=== PATIENT | male | born 1950 | race Caucasian/White ===

== ENCOUNTER 2018-09-04 08:26 | Outpatient (CLI) | payer MEDICARE, OTHER ==
[2018-09-04] MEDS ORDERED: GADOBUTROL 7.5 MMOL/7.5 ML VIAL ONE (09:01)
[2018-09-04] MEDS ORDERED: GADOBUTROL 7.5 MMOL/7.5 ML VIAL IVP ONE (09:36)
--- NOTE | 2018-09-04 11:51 | MRI Report ---
Reason: CHRONIC BILATERAL LOW BACK PAIN W/BILATERAL SCIATI Procedure Date: 09/04/2018 Accession Number: [id number] / [id number] Procedure: MRI - Lumbar Spine W/WO CPT Code: FULL RESULT: EXAM: MRI LUMBAR SPINE WITHOUT AND WITH CONTRAST EXAM DATE: 09/04/2018 09:47 AM. CLINICAL HISTORY: 59-year-old with history of prior lumbar spine surgeries presenting with low back pain and radiculopathy. COMPARISONS: MR lumbar spine 03/21/2016. TECHNIQUE: Multiplanar, multisequence T1-weighted and fluid-sensitive sequences of the lumbar spine from T12 to S1 before and after administration of intravenous contrast. Other: None. IV contrast: 7.5 cc Gadavist. FINDINGS: Postsurgical: There appear to be postsurgical changes of left L4-L5 hemilaminectomy and right L5-S1 hemilaminectomy. Neurologic Structures: The conus terminates at T12-L1. The conus medullaris and cauda equina are unremarkable. Alignment: There is 15 degrees of levoconvex scoliotic curvature centered about L4. There is straightening of the normal lumbar lordosis with 4 mm of grade 1 retrolisthesis of L5 on S1. There is 2-3 mm of grade 1 retrolisthesis of L1 on L2 and L4 and L5. Bone Marrow: Five [id number] lumbar vertebral bodies are assumed. There is endplate edema seen from L1-L2 L5-S1 that demonstrates enhancement. Finding may be degenerative in nature. Modic type II changes are seen at L1-L2, L2-L3, L4-L5 and L5-S1. No acute fracture. No definite abnormal marrow replacing lesion. No definite mass or masslike enhancement seen. Disk Levels/Facets: T12-L1: Mild endplate degenerative change, mild loss of disk height, and slight disk desiccation. Minimal bilateral arthritic facet disease. No definite spinal canal stenosis. No definite neural foraminal narrowing. L1-L2: Moderate endplate degenerative change, Schmorl's node formation, moderate loss of disk height, and disk desiccation with edema seen within the disk space that may be degenerative. Small posterior disk bulge, bilateral arthritic facet disease, and prominent epidural fat. Fluid is seen within the facets bilaterally. Mild spinal canal stenosis and effacement of the lateral recesses with contact of the traversing bilateral L2 nerve roots, greater on the left. Mild to moderate right and severe left neuroforaminal narrowing. L2-L3: Moderate endplate degenerative change, Schmorl's node formation, moderate loss of disk height, disk desiccation. Small posterior disk bulge, bilateral arthritic facet disease, and prominent epidural fat. Fluid is seen within the facets bilaterally. Mild to moderate spinal canal stenosis in the face and the lateral recesses with contact of the traversing bilateral L3 nerve roots, greater on the right. Mild to moderate right and moderate left neuroforaminal narrowing. L3-L4: Moderate endplate degenerative change, Schmorl's node formation, moderate loss of disk height, disk desiccation. Small posterior disk bulge, bilateral arthritic facet disease, ligament of flavum thickening, and prominent epidural fat. Severe spinal canal stenosis and effacement of the lateral recesses. Moderate to severe bilateral neural foraminal narrowing. L4-L5: Moderate endplate degenerative change, Schmorl's node formation, moderate loss of disk, and disk desiccation. Small posterior disk bulge, bilateral arthritic facet disease, and prominent epidural fat. Moderate spinal canal stenosis and effacement of the lateral recesses with contact of the traversing bilateral L5 nerve roots, greater on the right. Moderate right and mild to moderate left neuroforaminal narrowing. L5-S1: Moderate endplate degenerative change, Schmorl's node formation, moderate loss of disk height, disk desiccation. Small posterior disk bulge and bilateral arthritic facet disease. Effacement of the lateral recesses with contact and mass-effect on the traversing right S1 and contact of the traversing left S1 nerve roots. Moderate to severe bilateral neuroforaminal narrowing. Spinal Canal: No enhancing masses within the spinal canal. No epidural abscess. Musculature: Surgical changes are seen within the multifidus muscles of the lower lumbar spine. Mild fatty atrophy of the multifidus muscles. Edema seen within the subcutaneous tissues of the low back. Other: The visualized retroperitoneum is unremarkable. IMPRESSION: 1. Postsurgical changes of right L5-S1 hemilaminectomy. 2. There is 15 degrees of levoconvex scoliotic curvature centered about L4. 3. There is straightening of the normal lumbar lordosis with 4 mm of grade 1 retrolisthesis of L5 on S1. There is 2-3 mm of grade 1 retrolisthesis of L1 on L2 and L4 and L5. 4. Multilevel degenerative changes. L1-L2: Mild spinal canal stenosis and effacement of the lateral recesses with contact of the traversing bilateral L2 nerve roots, greater on the left. Mild to moderate right and severe left neuroforaminal narrowing. Findings appear slightly progressed from 03/21/2016 L2-L3: Mild to moderate spinal canal stenosis in the face and the lateral recesses with contact of the traversing bilateral L3 nerve roots, greater on the right. Mild to moderate right and moderate left neuroforaminal narrowing. Findings appear slightly progressed from 03/21/2016. L3-L4: Severe spinal canal stenosis and effacement of the lateral recesses. Moderate to severe bilateral neural foraminal narrowing. Findings appear slightly progressed from 03/21/2016 L4-L5: Moderate spinal canal stenosis and effacement of the lateral recesses with contact of the traversing bilateral L5 nerve roots, greater on the right. Moderate right and mild to moderate left neuroforaminal narrowing. Findings appear slightly progressed from 03/21/2016 L5-S1: Effacement of the lateral recesses with contact and mass-effect on the traversing right S1 and contact of the traversing left S1 nerve roots. Findings appear improved from prior study. Moderate to severe bilateral neuroforaminal narrowing. Findings appear slightly progressed from 03/21/2016. Comment: The following findings are so common in adults without low back pain that while we report their presence, they must be interpreted with caution and in the context of the clinical situation. (Reference Rosaleevik et al, Spine 2001) Prevalence of findings in patients without low back pain: Disk degeneration (any evidence): 92% Disk desiccation/T2 signal loss: 83% Disk height loss: 56% Disk bulge: 64% Disk protrusion: 32% Annular tear/high intensity zone: 38% RADIA
== END 2018-09-04 08:27 | disposition home or self-care (01) ==
LOC: DI 08:26
PROVIDERS: ATTEND Physical Medicine & Rehabilitation
DX: M51.36 Other intervertebral disc degeneration, lumbar region (principal); M51.35 Other intervertebral disc degeneration, thoracolumbar region; M51.37 Other intervertebral disc degeneration, lumbosacral region; M47.9 Spondylosis, unspecified; M48.061 Spinal stenosis, lumbar region without neurogenic claudication; M48.07 Spinal stenosis, lumbosacral region; M41.86 Other forms of scoliosis, lumbar region; M43.16 Spondylolisthesis, lumbar region; M43.17 Spondylolisthesis, lumbosacral region
CPT/HCPCS: 72158; A9585

== ENCOUNTER 2018-12-19 16:25 | Outpatient (CLI) | payer MEDICARE ==
[2018-12-19 16:38] LABS: BASOPHILS # (AUTO) 0.1 10^3/uL (0.0-0.1); BASOPHILS % (AUTO) 0.7 %; EOSINOPHILS # (AUTO) 0.2 10^3/uL (0.0-0.7); EOSINOPHILS % (AUTO) 1.5 %; HGB - HEMOGLOBIN 14.3 g/dL (14.0-18.0); LYMPHOCYTES # (AUTO) 1.6 10^3/uL (1.5-3.5); LYMPHOCYTES % (AUTO) 15.2 %; MEAN CORPUSCULAR HEMOGLOBIN 33.4 pg (27.0-31.0); MEAN CORPUSCULAR VOLUME 101.1 fL (80.0-94.0); MEAN PLATELET VOLUME 8.5 fL (7.4-11.4); MONOCYTES # (AUTO) 0.8 10^3/uL (0.0-1.0); NEUTROPHILS # (AUTO) 7.9 10^3/uL (1.5-6.6); NEUTROPHILS % (AUTO) 74.6 %; PLT - PLATELET COUNT 263 10^3/uL (130-450); RED BLOOD COUNT 4.28 10^6/uL (4.70-6.10); RED CELL DISTRIBUTION WIDTH 12.3 % (12.0-15.0); WHITE BLOOD COUNT 10.6 x10^3/uL (4.8-10.8)
[2018-12-19 16:48] LABS: ALBUMIN 4.3 g/dL (3.2-5.5); ALBUMIN/GLOBULIN RATIO 1.4 (1.0-2.2); BILIRUBIN,TOTAL 0.7 mg/dL (0.2-1.0); CALCIUM 9.7 mg/dL (8.5-10.3); CREATININE 1.1 mg/dL (0.6-1.2); TOTAL PROTEIN 7.3 g/dL (6.7-8.2)
== END 2018-12-19 16:26 | disposition home or self-care (01) ==
LOC: LAB 16:25
PROVIDERS: ATTEND Internal Medicine Gastroenterology
DX: R13.10 Dysphagia, unspecified (principal); I10 Essential (primary) hypertension
CPT/HCPCS: 36415; 80053; 85025; 93005

== ENCOUNTER 2018-12-20 12:00 | Day surgery (SDC) | payer MEDICARE, OTHER ==
[2018-12-20] MEDS ORDERED: LACTATED RINGERS 1,000 ML IV ONE (12:59)
[2018-12-20] MEDS ORDERED: LIDO GARGLE 30 ML BOTTLE ONE (13:54)
[2018-12-20] MEDS ORDERED: MIDAZOLAM 2 MG/2 ML VIAL IVP ONE (14:04)
[2018-12-20] MEDS ORDERED: fentaNYL 250 MCG/5 ML VIAL IVP ONE (14:04)
[2018-12-20] MEDS ORDERED: LIDO GARGLE 30 ML BOTTLE TOP ONE (14:08)
[2018-12-20 15:36] VITALS: BP 144/83
== END 2018-12-20 12:01 | disposition home or self-care (01) ==
LOC: SDS 12:00
PROVIDERS: ATTEND Internal Medicine Gastroenterology
PROC: 0DB28ZX Excision of Middle Esophagus, Via Natural or Artificial Opening Endoscopic, Diagnostic (ICD-10-PCS; 2018-12-20)
PROC: 0DB48ZX Excision of Esophagogastric Junction, Via Natural or Artificial Opening Endoscopic, Diagnostic (ICD-10-PCS; principal; 2018-12-20 13:15)
DX: C15.4 Malignant neoplasm of middle third of esophagus (principal); K21.9 Gastro-esophageal reflux disease without esophagitis; E78.5 Hyperlipidemia, unspecified; I10 Essential (primary) hypertension; E03.9 Hypothyroidism, unspecified; M10.9 Gout, unspecified; F32.9 Major depressive disorder, single episode, unspecified; Z72.89 Other problems related to lifestyle
CPT/HCPCS: 43239; A9270; J3010; J7120

== ENCOUNTER 2018-12-21 08:07 | Outpatient (CLI) | payer MEDICARE ==
[2018-12-21] MEDS ORDERED: IOVERSOL 320 50 ML VIAL ONE (08:38)
[2018-12-21] MEDS ORDERED: IOVERSOL 320 100 ML VIAL IVP ONE ×2 (08:38→10:08)
[2018-12-21] MEDS ORDERED: IOVERSOL 320 50 ML VIAL PO ONE (10:08)
--- NOTE | 2018-12-21 12:01 | CT Report ---
Reason: STAGING ESOPHAGEAL CANCER Procedure Date: 12/21/2018 Accession Number: [id number] / [id number] Procedure: CT - Abdomen/Pelvis W/ CPT Code: FULL RESULT: EXAM: CT CHEST, ABDOMEN AND PELVIS EXAM DATE: 12/21/2018 09:48 AM. CLINICAL HISTORY: Staging esophageal cancer. COMPARISONS: None. TECHNIQUE: Routine helical CT imaging was performed through the chest, abdomen, and pelvis. IV contrast: opti 320 100 ml. Enteric contrast: Yes. Reconstructions: Coronal and sagittal. In accordance with CT protocol optimization, one or more of the following dose reduction techniques were utilized for this exam: automated exposure control, adjustment of mA and/or KV based on patient size, or use of iterative reconstructive technique. FINDINGS: Musculoskeletal Chest: Right supraclavicular adenopathy, for example 2.5 x 1.7 cm image 6 series 2. Lungs/Pleura: There is a 4 mm right lower lobe lung nodule image 41. There is a 3 mm posterior lung nodule in the left lower lobe on image 49 there is a 7 mm posterior pleural-based nodule in the left lower lobe on image 26. Lung parenchymal background is clear with no pleural effusion or pneumothorax. Mediastinum: Superior mediastinal lymphadenopathy, for example 1.5 x 1.5 cm right tracheoesophageal recess image 12 series 2. 1.3 x 1.3 cm node, left paratracheal and image 16 as well as a 1.7 x 1.2 cm pretracheal node on image 23. There is no hilar lymphadenopathy. The esophagus is focally thickened to a maximum caliber of 3.3 x 2.8 cm for example image 31. Additional small suspicious lymph nodes are seen along the esophagus, for example on image 41 and image 34. Paraesophageal adenopathy continues to the level of the hiatus, for example image 49 series 2, 1 cm short axis. Liver: The liver contains cysts and hypodensities that are too small to characterize. Gallbladder/Bile Ducts: Unremarkable. Spleen: Normal. Pancreas: Solitary calcification within the pancreas, otherwise unremarkable. Adrenal Glands: Normal. Kidneys: A few right renal hypodensities are too small to characterize. There is a nonobstructing 2 mm right renal calculus. Peritoneal Cavity/Bowel: Hiatal lymphadenopathy, 1.4 cm short axis image 24 series 4 and image 16 series 2. Lymphadenopathy along the gastrohepatic ligament measures up to 1.8 cm in short axis on image 20. There is retroperitoneal periaortic lymphadenopathy, below the renal vein. For example, 1.3 and 1.2 cm nodes on image 38. No free fluid, free air. No acute inflammatory process. Pelvic Organs: Normal. The bladder and visualized pelvic organs are within normal limits. Vasculature: No aneurysms or other significant abnormality. Bones: No significant abnormality. Other: None. IMPRESSION: Focal thickening of the esophagus and paraesophageal as well as mediastinal and supraclavicular lymphadenopathy. A few scattered nonspecific pulmonary nodules measure up to 6 mm. Hiatal lymphadenopathy as well as gastrohepatic ligament and retroperitoneal lymphadenopathy to below the level of the renal vein. RADIA
--- NOTE | 2018-12-21 13:36 | CT Report ---
Reason: STAGING ESOPHAGEAL CANCER Procedure Date: 12/21/2018 Accession Number: [id number] / [id number] Procedure: CT - Neck Soft Tissue W/ CPT Code: FULL RESULT: EXAM: CT SOFT TISSUE NECK WITH CONTRAST. EXAM DATE: 12/21/2018 09:48 AM. HISTORY: Staging of esophageal cancer. COMPARISONS: None. TECHNIQUE: Routine soft tissue neck CT protocol. Reconstructions: Coronal and sagittal. IV contrast: Opti 320 [address] ml. In accordance with [address] protocol optimization, one or more of the following dose reduction techniques were utilized for this exam: automated exposure control, adjustment of mA and/or KV based on patient size, or use of iterative reconstructive technique. FINDINGS: Visualized Intracranial Contents: Unremarkable. Orbits: Symmetric and unremarkable. Sinuses: Visualized paranasal sinuses and mastoid air cells are clear with the exception of mild mucoperiosteal thickening in the right maxillary sinus. Oral cavity: Visualization of the oral cavity is limited by streak artifact with no definite abnormality detected. The floor of the mouth is symmetric. Pharynx : Pharyngeal mucosa is unremarkable. The infratemporal fossa, parapharyngeal spaces, and retropharyngeal space are unremarkable. The base of the tongue is symmetric and unremarkable. The airway is patent. Larynx: Larynx and supraglottic airway are patent without mass lesion. Vocal cords are symmetric. The visualized trachea is unremarkable. Parotid and Submandibular Glands: Symmetric and unremarkable. Lymph Nodes: The 2.6 x 2.2 cm right supraclavicular lymphadenopathy is noted, also seen on the CT of the chest. Superior mediastinal lymphadenopathy is described in the CT of the chest. No enlarged lymph nodes are identified in the cervical region. Soft tissues: Other soft tissues are unremarkable. No mass lesion or abnormal enhancement outside of the supraclavicular region. Vascular Structures: Unremarkable. Thyroid Gland: Normal. Lung: See CT chest. Bones: No evidence of acute fracture or malalignment. Extensive degenerative changes of the cervical spine. Other: None. IMPRESSION: Supraclavicular lymphadenopathy. RADIA
== END 2018-12-21 08:08 | disposition home or self-care (01) ==
LOC: DI 08:07
PROVIDERS: ATTEND Internal Medicine Gastroenterology
DX: C15.9 Malignant neoplasm of esophagus, unspecified (principal); R91.8 Other nonspecific abnormal finding of lung field; R59.0 Localized enlarged lymph nodes
CPT/HCPCS: 70491; 71260; 74177; Q9967

== ENCOUNTER 2019-01-04 13:27 | Outpatient (CLI) | payer MEDICARE, OTHER ==
--- NOTE | 2019-01-04 15:11 | XRAY Report ---
Reason: ESOPHARGEAL CANCER, MIDDLE THIRD SCC Procedure Date: 01/04/2019 Accession Number: [id number] / [id number] Procedure: XR - Chest 2 View X-Ray CPT Code: 04405 FULL RESULT: EXAM: CHEST RADIOGRAPHY EXAM DATE: 01/04/2019 02:01 PM. CLINICAL HISTORY: ESOPHARGEAL CANCER, MIDDLE THIRD SCC. COMPARISON: Chest CT 12/21/2018. TECHNIQUE: 2 views. FINDINGS: Lungs/Pleura: No focal opacities evident. No pleural effusion. No pneumothorax. Normal volumes. Mediastinum: Heart and mediastinal contours are unremarkable. Bones: Mild degenerative change in the spine. Other: The small nodules and the mediastinal adenopathy described on the recent chest CT report are not appreciated by plain film. IMPRESSION: No acute findings. The small nodules and the mediastinal adenopathy described on the recent chest CT report are not appreciated by plain film. RADIA
== END 2019-01-04 13:28 | disposition home or self-care (01) ==
LOC: DI 13:27
PROVIDERS: ATTEND Internal Medicine Gastroenterology
DX: C15.4 Malignant neoplasm of middle third of esophagus (principal)
CPT/HCPCS: 71046

== ENCOUNTER 2019-01-07 06:12 | Day surgery (SDC) | payer MEDICARE, OTHER ==
[2019-01-07] MEDS ORDERED: LACTATED RINGERS 1,000 ML IV ONE ×2 (06:29→08:00)
[2019-01-07] MEDS ORDERED: ceFAZolin 2 GM/50 ML 2 GM/50 ML BAG IV ONE (06:58)
--- NOTE | 2019-01-07 07:05 | ANESTHESIA ---
Pre-Anesthesia VS, & Labs - Diagnosis Esophageal cancer - Procedure port-a-cath placement Vital Signs: Temp Pulse Resp BP Pulse Ox 36.4 C L 74 12 146/84 H 98 01/07/19 06:32 01/07/19 06:32 01/07/19 06:32 01/07/19 06:32 01/07/19 06:32 Height 5 ft 10 in Weight (kg) 78.7 kg Body Mass Index 25.2 - NPO >8 hours Home Medications and Allergies Levothyroxine Sodium 150 mcg PO DAILY 12/20/18 Metoprolol Succinate 25 mg PO DAILY 12/20/18 Pantoprazole [Protonix] 40 mg PO DAILY 12/20/18 buPROPion [Wellbutrin Sr] 150 mg PO BID 12/20/18 Allergies/Adverse Reactions: Allergies Allergy/AdvReac Type Severity Reaction Status Date / Time No Known Drug Allergies Allergy Verified 12/20/18 12:42 Anes History & Medical History - Anesthetic History Anesthesia Complications: reports: No previous complications Family history of Anesthesia Complications: Denies Family history of Malignant Hyperthermia: Denies - Medical History Cardiovascular: reports: Hypertension, High cholesterol, Arrhythmia Pulmonary: reports: None Gastrointestinal: reports: GERD Urinary: reports: None Musculoskeletal: reports: Gout Endocrine/Autoimmune: reports: HyPOthyroidism Skin: reports: None Smoking Status: Never smoker - Surgical History General: Colonoscopy, EGD Eyes Ears Nose Throat (EENT): Cataracts Orthopedic: Spine surgery, Other Results - EKG Results EKG Comparison: Reviewed EKG (SR with RBBB and PACs) Exam General: Alert, Oriented x3, Cooperative Dental: WNL Mouth Openin Fingerbreadth Neck Mobility: Normal Mallampati classification: II Thyromental Distance: 4-6 cm Respiratory: Lungs clear Cardiovascular: Regular rate Mental/Cognitive Status: Alert/Oriented X3, Normal for patient Cognitive Status: Within normal limits Plan Anesthesia Type: MAC Consent for Procedure(s) Verified and Reviewed: Yes Code Status: Attempt Resuscitation ASA classification: 3-Severe systemic disease Is this case an emergency?: No
[2019-01-07] MEDS ORDERED: BUPIVACAINE 0.5%-EPI 1:200000 PF 30 ML VIAL ONE (07:12)
[2019-01-07] MEDS ORDERED: LIDOCAINE 1% 50 ML MDV ONE (07:12)
[2019-01-07] MEDS ORDERED: BUPIVACAINE 0.5%-EPI 1:200000 PF 30 ML VIAL SUBQ ONE ×2 (08:12)
[2019-01-07] MEDS ORDERED: LIDOCAINE 1% 50 ML MDV SUBQ ONE ×2 (08:12)
[2019-01-07] MEDS ORDERED: fentaNYL 100 MCG/2 ML VIAL IVP ONE (08:14)
[2019-01-07] MEDS ORDERED: PROPOFOL 200 MG/20 ML VIAL IVP ONE (08:14)
[2019-01-07] MEDS ORDERED: MIDAZOLAM 2 MG/2 ML VIAL IVP ONE (08:14)
[2019-01-07] MEDS ORDERED: LIDOCAINE-MPF 2% 5 ML VIAL IM ONE (08:14)
[2019-01-07] MEDS ORDERED: ONDANSETRON 4 MG/2 ML VIAL IVP ONE (08:14)
--- NOTE | 2019-01-07 08:50 | IMMEDIATE POSTOPERATIVE NOTE ---
Immediate Postoperative Note - Procedure Note Procedure Date: 01/07/19 Pre-Op Diagnosis: esophageal CA Procedure: port placement Post-Op Diagnosis: same Primary Surgeon: lauren Anesthesia Type: MAC Complications: No complications Estimated Blood Loss (in cc): 5 Plan of Care: discharge after CXR
--- NOTE | 2019-01-07 09:17 | PROCEDURE REPORT ---
DATE OF SERVICE: 01/07/2019 Physician: Carroll Morocho MD SURGEON: Carroll Morocho MD PREOPERATIVE DIAGNOSIS: Esophageal carcinoma. POSTOPERATIVE DIAGNOSIS: Esophageal carcinoma. PROCEDURE PERFORMED: Port-A-Cath placement. INDICATIONS FOR PROCEDURE: Patient is a 68-year-old unfortunate gentleman who was diagnosed with stage III esophageal carcinoma. He requires chemotherapy. His oncologist requested port placement. PROCEDURE IN DETAIL: The risks and benefits were explained to the patient, who agreed to procedure. He was taken to the operating room, given sedation. The chest was prepped and draped. Timeout was performed, and everyone in the room agreed to the procedure. Perioperative antibiotics were given. The arms were tucked. He was placed in 15 degrees Trendelenburg position; 10 mL of a Marcaine/lidocaine mixture was infused in the subQ over the left chest, below the lateral third of the clavicle. A larger needle was then placed at the same spot, directed under the clavicle, and accessed the subclavian vein on the first pass. A wire was then inserted through the needle into the vein without difficulty. The needle was removed. An x-ray confirmed wire placement through the subclavian vein down the SVC. The needle stick site was enlarged, and a dilator was used to expand the needle track, and then a peel-away sheath was introduced over the wire. An x-ray again confirmed placement. The wire and inner stylet was removed and the catheter inserted through the peel-away sheath up to 20 cm. An x-ray confirmed the tip around the junction of the SVC and atria. The peel-away sheath was removed. The incision was again enlarged, after infusing with more local anesthetic, to allow for placement of the port. A pocket was formed in the subcutaneous tissue above the pectoralis fascia. A catheter was inserted onto the port and secured in place. The port was inserted into the pocket, and one Prolene stitch was used to secure it in place. The catheter was inspected to ensure it was free of any kinking. The port was then accessed using a Martinez needle and heparinized saline. Aspiration of blood was easy, and it was then flushed with heparinized saline. The surgical incision was then closed in two layers of Vicryl and Monocryl with overlying Dermabond. This terminated the procedure. Patient tolerated well. He was taken to recovery in stable condition. COUNTS: Instrument and lap counts were correct. ESTIMATED BLOOD LOSS: 5 mL. COMPLICATIONS: None. SPECIMENS: None. PLAN: The plan is for the patient to go home later today. TD: 01/07/2019 09:04 MTDD
[2019-01-07 09:48] VITALS: BP 121/87
--- NOTE | 2019-01-07 10:19 | XRAY Report ---
Reason: s/p port placement Procedure Date: 01/07/2019 Accession Number: [id number] / [id number] Procedure: XR - Chest 1 View X-Ray CPT Code: 23770 FULL RESULT: EXAM: CHEST RADIOGRAPHY EXAM DATE: 01/07/2019 09:04 AM. CLINICAL HISTORY: Status post port placement. COMPARISON: CHEST 2 VIEW 01/04/2019 1:56 PM. TECHNIQUE: 1 view. FINDINGS: Lungs/Pleura: No focal opacities evident. No pleural effusion. No pneumothorax. Mediastinum: Mild aortic arch calcifications and stable cardiomediastinal silhouette accounting for differences in technique. Other: Interval placement of a left subclavian approach central venous port with the tip of the catheter in the proximal SVC. IMPRESSION: Port placement as described. RADIA
--- NOTE | 2019-01-07 11:24 | XRAY Report ---
Reason: port a cath placement Procedure Date: 01/07/2019 Accession Number: [id number] / [id number] Procedure: FL - OR C-Arm Procedure CPT Code: FULL RESULT: EXAM: FLUOROSCOPIC GUIDANCE EXAM DATE: 01/07/2019 08:30 AM. CLINICAL HISTORY: Port-a-cath placement. COMPARISON: None. FINDINGS: Single image demonstrates a left-sided central venous catheter terminating in the proximal SVC. IMPRESSION: Fluoroscopic guidance provided for central venous port placement. Total fluoroscopy time: 0.7 minutes. Number of images: 1. RADIA
== END 2019-01-07 06:13 | disposition home or self-care (01) ==
LOC: SDS 06:12
PROVIDERS: ATTEND Surgery
PROC: 02HV33Z Insertion of Infusion Device into Superior Vena Cava, Percutaneous Approach (ICD-10-PCS; principal; 2019-01-07 07:30)
DX: C15.4 Malignant neoplasm of middle third of esophagus (principal); I10 Essential (primary) hypertension; I49.9 Cardiac arrhythmia, unspecified; K21.9 Gastro-esophageal reflux disease without esophagitis; E03.9 Hypothyroidism, unspecified; E78.5 Hyperlipidemia, unspecified; M10.9 Gout, unspecified; F32.9 Major depressive disorder, single episode, unspecified
CPT/HCPCS: 36561; C1788; J0690; J7120; 71045

== ENCOUNTER 2019-02-15 12:02 | Inpatient (IN) | payer MEDICARE, OTHER ==
[2019-02-15] MEDS ORDERED: SODIUM CHLORIDE 0.9% 1,000 ML IV ONE ×2 (12:59)
[2019-02-15] MEDS ORDERED: VANCOMYCIN INJ 1 GM in SODIUM CHLORIDE 0.9% 500 ML IV STA (12:59)
[2019-02-15] MEDS ORDERED: PIPERACILLIN/TAZOBACTAM 3.375 GM in SODIUM CHLORIDE 0.9% MINIBAG 100 ML IV STA (12:59)
--- NOTE | 2019-02-15 13:05 | ED Physician Documentation ---
History of Present Illness - Stated complaint Stated Complaint: L FOOT PAIN - Chief complaint Chief Complaint: Ext Problem - History obtained from History obtained from: Patient, Family - History of Present Illness Timing: How many days ago (4) Pain level max: 4 Pain level now: 3 Improved by: nothing Worsened by: nothing - Additonal information Additional information: 68-year-old male currently undergoing chemotherapy for esophageal cancer started with redness and swelling to the left foot, second toe approximately 4 days ago. Given a dose of an IV antibiotic, patient does not know which one and then placed on Augmentin. States redness and swelling have increased. Undergoes chemotherapy q 2 weeks. Review of Systems Ten Systems: 10 systems reviewed and negative Constitutional: denies: Fever, Chills Respiratory: denies: Cough GI: denies: Nausea, Vomiting, Diarrhea Skin: denies: Rash Musculoskeletal: denies: Neck pain, Back pain Neurologic: denies: Headache PD PAST MEDICAL HISTORY - Past Medical History Cardiovascular: Hypertension, High cholesterol, Arrhythmia Respiratory: None Endocrine/Autoimmune: HyPOthyroidism GI: GERD : None HEENT: Chronic vision loss Psych: Depression Musculoskeletal: Gout Derm: None - Past Surgical History General: Colonoscopy, EGD Ortho: Spine surgery, Other HEENT: Cataracts - Present Medications Home Medications: Ambulatory Orders Medication Instructions Recorded Confirmed Levothyroxine Sodium 150 mcg PO DAILY 12/20/18 02/15/19 Pantoprazole [Protonix] 40 mg PO QDAC 12/20/18 02/15/19 buPROPion [Wellbutrin Sr] 150 mg PO BID 12/20/18 02/15/19 LORazepam [Lorazepam] 0.5 mg PO Q6H PRN 01/08/19 02/15/19 Lidocaine/Prilocain 2.5% Cream 1 cm TOP PRN PRN #1 tube 01/08/19 02/15/19 [Emla 2.5% Cream] Ondansetron HCl [Zofran] 1 tab PO Q4H PRN #30 tablet 01/08/19 02/15/19 Prochlorperazine Maleate 10 mg PO Q6H PRN #30 tablet 01/08/19 02/15/19 Amox/Clav 875/125 [Augmentin] 1 each PO Q12H 02/15/19 02/15/19 Metoprolol Succinate [Toprol Xl] 25 mg PO DAILY 02/15/19 02/15/19 - Allergies Allergies/Adverse Reactions: Allergies Allergy/AdvReac Type Severity Reaction Status Date / Time No Known Drug Allergies Allergy Verified 02/15/19 12:12 - Social History Smoking Status: Never smoker PD ED PE NORMAL - Vitals Vital signs reviewed: Yes - General General: Alert and oriented X 3, No acute distress, Well developed/nourished - HEENT HEENT: Moist mucous membranes - Neck Neck: Supple, no meningeal sign - Cardiac Cardiac: RRR - Respiratory Respiratory: No respiratory distress, Clear bilaterally - Abdomen Abdomen: Soft, Non tender, Non distended - Derm Derm: Warm and dry - Extremities Extremities: Other (L foot - erythema and swelling to the mid foot. no drainable abscess. NVI. no plantar tenderness. no sausage digits. ) - Neuro Neuro: Alert and oriented X 3 - Psych Psych: Normal mood, Normal affect Results - Vitals Vitals: Vital Signs - 24 hr 02/15/19 12:10 Temperature 36.1 C L Heart Rate 115 H Respiratory 14 Rate Blood Pressure 160/95 H O2 Saturation 99 Oxygen O2 Source Room air - Labs Labs: Laboratory Tests 02/15/19 12:32 Uric Acid 5.2 PD MEDICAL DECISION MAKING - ED course Complexity details: reviewed results, re-evaluated patient, considered differential, d/w patient, d/w family, d/w [facility] consultant ED course: 68-year-old male, immunocompromised from chemotherapy and failing outpatient antibiotics for left foot cellulitis. Given vancomycin and Zosyn here. Does not appear septic. Lactate normal. Will admit for IV antibiotics. Discussed the case with Dr. Amaral, hospitalist who accepts. This document was made in part using voice recognition software. While efforts are made to proofread this document, sound alike and grammatical errors may occur. Departure - Departure Disposition: [facility] DC/Xfer Clinical Impression: Cellulitis Qualifiers: Site of cellulitis: extremity Site of cellulitis of extremity: lower extremity Laterality: left Qualified Code(s): L03.116 - Cellulitis of left lower limb Condition: Stable Discharge Date/Time: 02/15/19 14:22
[2019-02-15] MEDS ORDERED: ACETAMINOPHEN 325 MG TABLET PO PRN (13:21)
[2019-02-15] MEDS ORDERED: TEMAZEPAM 7.5 MG CAPSULE PO PRN (13:21)
[2019-02-15] MEDS ORDERED: LIDOCAINE TOP PRN (13:28)
[2019-02-15] MEDS ORDERED: LORazepam 0.5 MG TABLET PO PRN (13:28)
[2019-02-15] MEDS ORDERED: PRILOCAINE TOP PRN (13:28)
[2019-02-15 13:38] LABS: BASOPHILS % (AUTO) 1.3 %; EOSINOPHILS # (AUTO) 0.2 10^3/uL (0.0-0.7); EOSINOPHILS % (AUTO) 5.8 %; LYMPHOCYTES # (AUTO) 0.8 10^3/uL (1.5-3.5); LYMPHOCYTES % (AUTO) 21.9 %; MEAN CORPUSCULAR HEMOGLOBIN 33.4 pg (27.0-31.0); MEAN CORPUSCULAR HGB CONC 34.8 g/dL (32.0-36.0); MEAN PLATELET VOLUME 8.2 fL (7.4-11.4); MONOCYTES # (AUTO) 0.6 10^3/uL (0.0-1.0); MONOCYTES % (AUTO) 16.2 %; NEUTROPHILS % (AUTO) 54.8 %; PLT - PLATELET COUNT 206 10^3/uL (130-450); RED BLOOD COUNT 3.89 10^6/uL (4.70-6.10); RED CELL DISTRIBUTION WIDTH 12.5 % (12.0-15.0); WHITE BLOOD COUNT 3.7 x10^3/uL (4.8-10.8)
[2019-02-15 13:47] LABS: ALBUMIN 3.4 g/dL (3.2-5.5); BILIRUBIN,TOTAL 0.8 mg/dL (0.2-1.0); CALCIUM 8.9 mg/dL (8.5-10.3); CREATININE 0.8 mg/dL (0.6-1.2); TOTAL PROTEIN 6.7 g/dL (6.7-8.2)
[2019-02-15 14:07] LABS: INR 1.3 (0.8-1.2); PT - PROTHROMBIN TIME 14.7 secs (9.9-12.6)
[2019-02-15] MEDS ORDERED: VANCOMYCIN PER PHARMACY 100 GM in SODIUM CHLORIDE 0.9% 250 ML IV PRN (17:00)
[2019-02-15] MEDS ORDERED: POTASSIUM CHLORIDE 20 MEQ TABLET PO ONE (17:00)
[2019-02-15] MEDS: SODIUM CHLORIDE FLUSH 0.9% 10 ML SYRINGE IVP SCH (17:10)
[2019-02-15] MEDS ORDERED: VANCOMYCIN INJ 500 MG in SODIUM CHLORIDE 0.9% MINIBAG 100 ML IV ONE (18:00)
[2019-02-15] MEDS: KETOROLAC 15 MG/ML VIAL IVP PRN (18:19)
--- NOTE | 2019-02-15 20:03 | HISTORY & PHYSICAL EXAMINATION ---
DATE OF SERVICE: 02/15/2019 Physician: Yue Amaral MD HISTORY OF PRESENT ILLNESS: This is a 68-year-old white male with a history of hypertension, hypothyroidism and depression. He was recently diagnosed with esophageal cancer, stage IV, when he developed the feeling of food getting stuck in his throat approximately 7 or 8 months ago. He underwent endoscopy with biopsies and was diagnosed with stage IV esophageal cancer, has a port in place and gets chemotherapy every 2 weeks for 72 hours through our [facility] with Dr. Bonilla as his Oncologist. At the last visit to the clinic, he complained of redness, swelling and some pain and warmth of his left second toe and he received 1 treatment of IV antibiotic while in the [facility] and was sent home with oral antibiotics with Augmentin. In these 2 days subsequently, the area has become more swollen, more red, more painful and the area of swelling was spreading up his foot toward his anterior ankle. He presented with these complaints to the emergency room and is being admitted for cellulitis with a failed outpatient antibiotic course. PAST MEDICAL HISTORY: Esophageal cancer, getting chemotherapy, hypothyroidism, depression, hypertension. SOCIAL HISTORY: The patient is an ex-smoker who quit over 20 years ago, he drinks no alcohol, no illicit drug use history. 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 FAMILY HISTORY: No inherited diseases. ALLERGIES: NONE. MEDICATIONS 1. Metoprolol 25 mg p.o. daily. 2. Protonix 40 mg daily. 3. Wellbutrin SR 150 mg b.i.d. 4. Prochlorperazine 10 mg p.r.n. 5. Zofran 1 tablet p.r.n. 6. Emla cream topically at the port site every time he gets the chemotherapy. 7. Levothyroxine 150 mcg daily. 8. Lorazepam 0.5 mg q.6 hours p.r.n. anxiety. 9. He was on Augmentin 875 mg b.i.d. for the past 2 days. REVIEW OF SYSTEMS: The patient reports that his blood pressure has been controlled with the metoprolol and it also is treating a "racing heart that he had before being on metoprolol." There has been no fever in these past 3 days. He has never had this type of event, but does remember a gouty attack about 10 or 20 years ago, but it was not similar to this. A comprehensive review of systems was performed and the pertinent positives are listed, the rest are negative. PHYSICAL EXAMINATION GENERAL: White male who appears younger than his age. VITAL SIGNS: Blood pressure 135/80, heart rate 90 in sinus rhythm. In the ER, the heart rate was 115 in sinus tachycardia. He is afebrile and room air saturation is 98%. HEENT: Unremarkable. He has good dentition. NECK: Without JVD or carotid bruits. LUNGS: Clear. HEART: Sounds normal. No murmur. ABDOMEN: Soft, nontender. No organomegaly. Normal bowel sounds. EXTREMITIES: The right leg and foot appear normal. The left foot has redness, warmth and swelling of the second and third toes. The warmth, swelling and redness spreads anteriorly up his foot. There is tenderness to touch. NEUROLOGIC: Intact. LABORATORY DATA: Normal electrolytes except potassium 3.3. Lactic acid 0.8. Normal liver tests. C-reactive protein 5.8. White count 3.7, hemoglobin 13 with MCV of 96, platelet count normal at 206. INR 1.3. DIAGNOSTIC DATA: No imaging was done. No EKG was done. IMPRESSION/DIAGNOSES 1. Cellulitis of the left foot. 2. Esophageal cancer. 3. Hypokalemia. 4. On antineoplastic chemotherapy. 5. Hypothyroidism. 6. Depression. 7. Hypertension. 8. Continued odynophagia. PLAN: Admit the patient to a med/surg bed. Continue with his thyroid, depression, blood pressure and tachycardia medications. Obtain blood cultures. Start the patient on IV antibiotics, using what was given in the emergency room: IV vancomycin and IV Zosyn. Watch the area of redness and daily CBC. Start pain medications using anti-inflammatory medications and Tylenol or stronger narcotics if needed will be ordered. Obtain a uric acid level to determine if any of this could be gout, especially sine he is undergoing chemotherapy. Start a soft diet because of his odynophagia. CODE STATUS: FULL CODE. DEEP VENOUS THROMBOSIS PROPHYLAXIS: Lovenox. ATTESTATION: The patient is expected to be discharged or transferred to another facility within 96 hours: Yes. cc: Haile Ortiz MD TD: 02/15/2019 19:05 [facility]
[2019-02-15] MEDS: PIPERACILLIN/TAZOBACTAM 3.375 GM in SODIUM CHLORIDE 0.9% MINIBAG 100 ML IV SCH (20:18)
[2019-02-15] MEDS: HYDROcod/ACETAM 5/325 MG TABLET PO PRN (20:34)
[2019-02-15] MEDS: buPROPion SR 150 MG TABLET PO SCH (20:34)
[2019-02-16] MEDS: SODIUM CHLORIDE FLUSH 0.9% 10 ML SYRINGE IVP SCH ×3 (01:34→17:16)
[2019-02-16] MEDS: PIPERACILLIN/TAZOBACTAM 3.375 GM in SODIUM CHLORIDE 0.9% MINIBAG 100 ML IV SCH ×3 (02:02→13:45)
[2019-02-16] MEDS: HYDROcod/ACETAM 5/325 MG TABLET PO PRN ×3 (02:09→17:16)
[2019-02-16 05:02] LABS: BASOPHILS # (AUTO) 0.1 10^3/uL (0.0-0.1); BASOPHILS % (AUTO) 1.5 %; EOSINOPHILS # (AUTO) 0.3 10^3/uL (0.0-0.7); EOSINOPHILS % (AUTO) 7.6 %; HGB - HEMOGLOBIN 10.4 g/dL (14.0-18.0); LYMPHOCYTES # (AUTO) 1.2 10^3/uL (1.5-3.5); LYMPHOCYTES % (AUTO) 32.5 %; MEAN CORPUSCULAR HEMOGLOBIN 33.3 pg (27.0-31.0); MEAN CORPUSCULAR HGB CONC 34.1 g/dL (32.0-36.0); MEAN CORPUSCULAR VOLUME 97.8 fL (80.0-94.0); MEAN PLATELET VOLUME 8.4 fL (7.4-11.4); MONOCYTES # (AUTO) 0.6 10^3/uL (0.0-1.0); MONOCYTES % (AUTO) 15.6 %; NEUTROPHILS # (AUTO) 1.6 10^3/uL (1.5-6.6); NEUTROPHILS % (AUTO) 42.8 %; PLT - PLATELET COUNT 149 10^3/uL (130-450); RED BLOOD COUNT 3.13 10^6/uL (4.70-6.10); RED CELL DISTRIBUTION WIDTH 12.7 % (12.0-15.0); WHITE BLOOD COUNT 3.7 x10^3/uL (4.8-10.8)
[2019-02-16 05:11] LABS: CALCIUM 8.4 mg/dL (8.5-10.3); CREATININE 0.9 mg/dL (0.6-1.2)
[2019-02-16] MEDS: VANCOMYCIN INJ 1 GM in SODIUM CHLORIDE 0.9% 250 ML IV SCH ×2 (06:04→18:02)
[2019-02-16] MEDS: LEVOTHYROXINE 75 MCG TABLET PO SCH (06:56)
[2019-02-16] MEDS: PANTOPRAZOLE 40 MG TABLET PO SCH (06:56)
[2019-02-16 07:26] LABS: BILIRUBIN,URINE NEGATIVE (NEGATIVE); GLUCOSE, URINE (UA) NEGATIVE (NEGATIVE); KETONES,URINE (UA) NEGATIVE (NEGATIVE); LEUKOCYTE ESTERASE, URINE NEGATIVE (NEGATIVE); NITRITE,URINE NEGATIVE (NEGATIVE); OCCULT BLOOD,URINE NEGATIVE (NEGATIVE); PROTEIN,URINE NEGATIVE (NEGATIVE); UROBILINOGEN,URINE 0.2 (NORMAL) E.U./dL (NORMAL)
[2019-02-16 07:27] LABS: CLARITY,URINE CLEAR (CLEAR)
[2019-02-16] MEDS: POLYETHYLENE GLYCOL 3350 17 GM PACKET PO SCH (08:18)
[2019-02-16] MEDS: METOPROLOL SUCCINATE 25 MG TABLET PO SCH (08:19)
[2019-02-16] MEDS: buPROPion SR 150 MG TABLET PO SCH ×2 (08:19→20:08)
[2019-02-16] MEDS ORDERED: METOPROLOL SUCCINATE 50 MG TABLET PO SCH (09:00)
[2019-02-16] MEDS: ENOXAPARIN 40 MG/0.4 ML SYRINGE SUBQ SCH (09:05)
--- NOTE | 2019-02-16 16:18 | PROVIDER PROGRESS NOTE ---
Assessment/Plan - Problem List (1) Cellulitis Qualifiers: Site of cellulitis: extremity Site of cellulitis of extremity: lower extremity Laterality: left Qualified Code(s): L03.116 - Cellulitis of left lower limb Assessment/Plan: Will adjust antibiotics from Vanco and Zosyn to Vanco and Clinda, since no significant improvement clinically. Await blood cultures. Continue pain meds. (2) HTN (hypertension) Assessment/Plan: Stable on his home Metoprolol (3) Esophageal cancer, stage IV Assessment/Plan: with odynophagia. Continue soft diet. Monitor CBC, since he had chemo about a week ago. (4) Hypothyroidism Assessment/Plan: Continue his home dose of replacement. (5) Depression Assessment/Plan: Continue home med. - Current Meds Current Meds: Current Medications Generic Name Dose Route Start Last Admin Trade Name Freq PRN Reason Stop Dose Admin Acetaminophen 650 mg 02/15/19 13:21 02/15/19 16:10 Tylenol PO 650 mg Q4HR PRN Administration Pain or Fever > 38C (100.4F) Hydrocodone Bitart/Acetaminophen 1 tab 02/15/19 19:39 02/16/19 06:56 [place] 5/325 PO 1 tab Q4HR PRN Administration PAIN Bupropion HCl 150 mg 02/15/19 21:00 02/16/19 08:19 Wellbutrin Sr PO 150 mg BID BLOSSOM Administration Enoxaparin Sodium 40 mg 02/16/19 09:00 02/16/19 09:05 Lovenox SUBQ 40 mg DAILY BLOSSOM Administration Vancomycin HCl 1 gm/ Sodium 250 mls @ 167 mls/hr 02/16/19 06:00 02/16/19 07:40 Chloride IV Infused Q12H BLOSSOM Infusion Ketorolac Tromethamine 15 mg 02/15/19 17:58 02/15/19 18:19 Toradol Inj (15mg) IVP 02/20/19 17:57 15 mg Q6HR PRN Administration PAIN Levothyroxine Sodium 150 mcg 02/16/19 07:00 02/16/19 06:56 Synthroid PO 150 mcg QDAC BLOSSOM Administration Lorazepam 0.5 mg 02/15/19 13:28 02/15/19 20:35 Ativan PO 0.5 mg Q6H PRN Administration Nausea / Vomiting Metoprolol Succinate 25 mg 02/16/19 09:00 02/16/19 08:19 Toprol Xl PO 25 mg DAILY BLOSSOM Administration Pantoprazole Sodium 40 mg 02/16/19 07:00 02/16/19 06:56 Protonix PO 40 mg QDAC BLOSSOM Administration Polyethylene Glycol 17 gm 02/16/19 09:00 02/16/19 08:18 Miralax PO Not Given DAILY BLOSSOM Sodium Chloride 10 ml 02/15/19 17:00 02/16/19 08:19 Normal Saline Flush 0.9% IVP 10 ml 0100,0900,1700 BLOSSOM Administration Temazepam 7.5 mg 02/15/19 13:21 02/15/19 20:34 Restoril PO 7.5 mg QPM PRN Administration Insomnia - Lab Result Fish Bone Diagrams: 02/16/19 04:48 02/16/19 04:48 - Additional Planning My Orders: My Active Orders 02/15/19 17:00 Sodium Chloride Flush 0.9% [Normal Saline Flush 0.9%] 10 ml IVP 0100,0900,1700 02/15/19 17:58 Ketorolac Inj (15Mg) [Toradol Inj (15Mg)] 15 mg IVP Q6HR PRN 02/15/19 21:00 buPROPion [Wellbutrin Sr] 150 mg PO BID 02/15/19 Dinner DIET [Soft Mechanical Diet] [DIET] 02/16/19 06:00 Vancomycin Inj [Vancomycin] 1 gm Sodium Chloride 0.9% [Normal Saline 0.9%] 250 ml IV Q12H 02/16/19 07:00 Levothyroxine [Synthroid] 150 mcg PO QDAC Pantoprazole [Protonix] 40 mg PO QDAC 02/16/19 09:00 Enoxaparin [Lovenox] 40 mg SUBQ DAILY Metoprolol Succinate [Toprol Xl] 25 mg PO DAILY Polyethylene Glycol 3350 [Miralax] 17 gm PO DAILY 02/16/19 18:00 Clindamycin/D5W 600 mg/50 ml q6hr Clindamycin 600 mg/50 ml [Cleocin 600 mg/50 ml] 50 ml IV Q6HR 02/17/19 05:00 BMP - BASIC METABOLIC PANEL [CHEM] DAILYLAB CBC - COMP BLD CT W/AUTO DIFF [HEME] DAILYLAB 02/18/19 05:00 CBC - COMP BLD CT W/AUTO DIFF [HEME] DAILYLAB 02/18/19 05:30 VANCOMYCIN TROUGH [CHEM] Timed Subjective - Subjective Patient Reports: Resting Comfortably, Other (Pain under control with pain meds) Objective Vital Signs: Vital Signs - 24 hr 02/15/19 02/16/19 02/16/19 18:08 00:00 08:00 Temperature 36.8 C 36.8 C 36.6 C Heart Rate [ 90 76 79 Brachial] Respiratory 20 18 16 Rate Blood Pressure 134/79 H 125/66 129/80 [Right Brachial artery] O2 Saturation 98 99 98 02/16/19 16:00 Temperature 36.5 C Heart Rate [ 63 Brachial] Respiratory 20 Rate Blood Pressure 125/67 [Right Brachial artery] O2 Saturation 100 Oxygen O2 Source Room air I&O (Last 24 Hrs): Intake and Output Totals x24h 02/14/19 02/15/19 02/16/19 23:59 23:59 23:59 Intake Total 3630.0 1755 Output Total 475 Balance 3630.0 1280 General: Alert, Other (Appears fatigued) HEENT: Mucous membr. moist/pink Neck: Supple Neuro: Non Focal Cardiovascular: Regular rate Respiratory: No respiratory distress Abdomen: Soft Extremities: Other (No change in area of redness or warmth of L foot and 2nd, 3rd toes since yesteray, toe swelling has decreased slightly. No skin break down or oozing.) - Results Results: Laboratory Results WBC 3.7 x10^3/uL (4.8-10.8) L 02/16/19 04:48 RBC 3.13 10^6/uL (4.70-6.10) L 02/16/19 04:48 Hgb 10.4 g/dL (14.0-18.0) L 02/16/19 04:48 Hct 30.6 % (42.0-52.0) L 02/16/19 04:48 MCV 97.8 fL (80.0-94.0) H 02/16/19 04:48 MCH 33.3 pg (27.0-31.0) H 02/16/19 04:48 MCHC 34.1 g/dL (32.0-36.0) 02/16/19 04:48 RDW 12.7 % (12.0-15.0) 02/16/19 04:48 Plt Count 149 10^3/uL (130-450) 02/16/19 04:48 MPV 8.4 fL (7.4-11.4) 02/16/19 04:48 Neut # (Auto) 1.6 10^3/uL (1.5-6.6) 02/16/19 04:48 Lymph # (Auto) 1.2 10^3/uL (1.5-3.5) L 02/16/19 04:48 [place] # (Auto) 0.6 10^3/uL (0.0-1.0) 02/16/19 04:48 Eos # (Auto) 0.3 10^3/uL (0.0-0.7) 02/16/19 04:48 Baso # (Auto) 0.1 10^3/uL (0.0-0.1) 02/16/19 04:48 Absolute Nucleated RBC 0.00 x10^3/uL 02/16/19 04:48 Nucleated RBC % 0.1 /100WBC 02/16/19 04:48 ESR 47 mm/Hr (0-20) H 02/15/19 13:23 PT 14.7 secs (9.9-12.6) H 02/15/19 13:23 INR 1.3 (0.8-1.2) H 02/15/19 13:23 Sodium 141 mmol/L (135-145) 02/16/19 04:48 Potassium 3.5 mmol/L (3.5-5.0) 02/16/19 04:48 Chloride 111 mmol/L (101-111) 02/16/19 04:48 Carbon Dioxide 23 mmol/L (21-32) 02/16/19 04:48 Anion Gap 7.0 (6-13) 02/16/19 04:48 BUN 15 mg/dL (6-20) 02/16/19 04:48 Creatinine 0.9 mg/dL (0.6-1.2) 02/16/19 04:48 Estimated GFR (MDRD) 84 (>89) L 02/16/19 04:48 Glucose 95 mg/dL (70-100) 02/16/19 04:48 Lactic Acid 0.8 mmol/L (0.5-2.2) 02/15/19 13:23 Uric Acid 5.2 mg/dL (2.6-7.2) 02/15/19 12:32 Calcium 8.4 mg/dL (8.5-10.3) L 02/16/19 04:48 Total Bilirubin 0.8 mg/dL (0.2-1.0) 02/15/19 13:23 AST 43 IU/L (10-42) H 02/15/19 13:23 ALT 51 IU/L (10-60) 02/15/19 13:23 Alkaline Phosphatase 68 IU/L (42-121) 02/15/19 13:23 C-Reactive Protein 5.8 mg/dL (0-1.0) H 02/15/19 13:23 Total Protein 6.7 g/dL (6.7-8.2) 02/15/19 13:23 Albumin 3.4 g/dL (3.2-5.5) 02/15/19 13:23 Globulin 3.3 g/dL (2.1-4.2) 02/15/19 13:23 Albumin/Globulin Ratio 1.0 (1.0-2.2) 02/15/19 13:23 Lipase 51 U/L (22-51) 02/15/19 13:23 TSH 3.69 uIU/mL (0.34-5.60) 02/16/19 04:48 Urine Color DARK YELLOW 02/16/19 06:44 Urine Clarity CLEAR (CLEAR) 02/16/19 06:44 Urine pH 6.0 PH (5.0-7.5) 02/16/19 06:44 Ur Specific [place] 1.025 (1.002-1.030) 02/16/19 06:44 Urine Protein NEGATIVE mg/dL (NEGATIVE) 02/16/19 06:44 Urine Glucose (UA) NEGATIVE mg/dL (NEGATIVE) 02/16/19 06:44 Urine Ketones NEGATIVE mg/dL (NEGATIVE) 02/16/19 06:44 Urine Occult Blood NEGATIVE (NEGATIVE) 02/16/19 06:44 Urine Nitrite NEGATIVE (NEGATIVE) 02/16/19 06:44 Urine Bilirubin NEGATIVE (NEGATIVE) 02/16/19 06:44 Urine Urobilinogen 0.2 (NORMAL) E.U./dL (NORMAL) 02/16/19 06:44 Ur Leukocyte Esterase NEGATIVE (NEGATIVE) 02/16/19 06:44 Ur Microscopic Review NOT INDICATED 02/16/19 06:44 Urine Culture Comments NOT INDICATED 02/16/19 06:44 Nasal Screen MRSA (PCR) NEGATIVE (NEGATIVE) 02/15/19 15:34 - Procedures Procedures: Procedures EXCISION OF ESOPHAGOGASTRIC JUNCTION, ENDO, DIAGN (12/20/18) EXCISION OF MIDDLE ESOPHAGUS, ENDO, DIAGN (12/20/18) INSERTION OF INFUSION DEV INTO SUP VENA CAVA, PERC APPROACH (01/07/19)
[2019-02-16] MEDS: PROCHLORPERAZINE 10 MG/2 ML VIAL IVP PRN (17:16)
[2019-02-16] MEDS: CLINDAMYCIN 600 MG/50 ML 50 ML IV SCH (17:19)
[2019-02-16] MEDS: SODIUM CHLORIDE FLUSH 0.9% 10 ML SYRINGE IVP PRN (20:08)
[2019-02-17] MEDS: CLINDAMYCIN 600 MG/50 ML 50 ML IV SCH ×4 (00:25→18:24)
[2019-02-17] MEDS: SODIUM CHLORIDE FLUSH 0.9% 10 ML SYRINGE IVP SCH ×3 (00:26→18:24)
[2019-02-17] MEDS: HYDROcod/ACETAM 5/325 MG TABLET PO PRN ×3 (01:00→23:37)
[2019-02-17] MEDS: LEVOTHYROXINE 75 MCG TABLET PO SCH (06:17)
[2019-02-17] MEDS: PANTOPRAZOLE 40 MG TABLET PO SCH (06:18)
[2019-02-17] MEDS: VANCOMYCIN INJ 1 GM in SODIUM CHLORIDE 0.9% 250 ML IV SCH ×2 (06:52→19:13)
[2019-02-17 07:17] LABS: BASOPHILS # (AUTO) 0.1 10^3/uL (0.0-0.1); EOSINOPHILS # (AUTO) 0.3 10^3/uL (0.0-0.7); EOSINOPHILS % (AUTO) 6.2 %; LYMPHOCYTES # (AUTO) 1.7 10^3/uL (1.5-3.5); LYMPHOCYTES % (AUTO) 34.8 %; MEAN CORPUSCULAR HEMOGLOBIN 33.6 pg (27.0-31.0); MEAN CORPUSCULAR HGB CONC 34.7 g/dL (32.0-36.0); MEAN CORPUSCULAR VOLUME 96.8 fL (80.0-94.0); MONOCYTES # (AUTO) 0.6 10^3/uL (0.0-1.0); MONOCYTES % (AUTO) 13.3 %; NEUTROPHILS # (AUTO) 2.1 10^3/uL (1.5-6.6); NEUTROPHILS % (AUTO) 43.7 %; PLT - PLATELET COUNT 161 10^3/uL (130-450); RED BLOOD COUNT 3.29 10^6/uL (4.70-6.10); RED CELL DISTRIBUTION WIDTH 12.6 % (12.0-15.0); WHITE BLOOD COUNT 4.7 x10^3/uL (4.8-10.8)
[2019-02-17 07:24] LABS: CALCIUM 8.4 mg/dL (8.5-10.3); CREATININE 0.8 mg/dL (0.6-1.2)
[2019-02-17] MEDS: METOPROLOL SUCCINATE 25 MG TABLET PO SCH (09:18)
[2019-02-17] MEDS: buPROPion SR 150 MG TABLET PO SCH ×2 (09:18→21:09)
[2019-02-17] MEDS: ENOXAPARIN 40 MG/0.4 ML SYRINGE SUBQ SCH (09:19)
[2019-02-17] MEDS: POLYETHYLENE GLYCOL 3350 17 GM PACKET PO SCH (09:19)
[2019-02-17] MEDS ORDERED: POTASSIUM CHLORIDE 20 MEQ TABLET PO SCH (11:38)
[2019-02-17] MEDS: SODIUM CHLORIDE FLUSH 0.9% 10 ML SYRINGE IVP PRN ×3 (12:08→21:09)
--- NOTE | 2019-02-17 12:58 | PROVIDER PROGRESS NOTE ---
Assessment/Plan - Problem List (1) Cellulitis Qualifiers: Site of cellulitis: extremity Site of cellulitis of extremity: lower extremity Laterality: left Qualified Code(s): L03.116 - Cellulitis of left lower limb Assessment/Plan: There is a coalescing area of redness and less toes swelling. Blood cx ar neg at day 1. Since changing to Clinda plus Vano yesterday, there has been improvement, unlike on Vanco plus Zosyn. Will continue iv antibiotics for 2 days minimum, then transition probably to po Clinda for a 7-10 day course. (2) HTN (hypertension) Assessment/Plan: Stable on meds (3) Esophageal cancer, stage IV Assessment/Plan: Stable but with difficulty swallowing, tolerates a soft diet and pills cut or crushed. (4) Hypothyroidism Assessment/Plan: Continue on his home meds. (5) Depression Assessment/Plan: Continue on his home meds. - Current Meds Current Meds: Current Medications Generic Name Dose Route Start Last Admin Trade Name Freq PRN Reason Stop Dose Admin Acetaminophen 650 mg 02/15/19 13:21 02/15/19 16:10 Tylenol PO 650 mg Q4HR PRN Administration Pain or Fever > 38C (100.4F) Hydrocodone Bitart/Acetaminophen 1 tab 02/15/19 19:39 02/17/19 07:10 [place] 5/325 PO 1 tab Q4HR PRN Administration PAIN Bupropion HCl 150 mg 02/15/19 21:00 02/17/19 09:18 Wellbutrin Sr PO 150 mg BID BLOSSOM Administration Enoxaparin Sodium 40 mg 02/16/19 09:00 02/17/19 09:19 Lovenox SUBQ 40 mg DAILY BLOSSOM Administration Vancomycin HCl 1 gm/ Sodium 250 mls @ 167 mls/hr 02/16/19 06:00 02/17/19 09:45 Chloride IV Infused Q12H BLOSSOM Infusion Clindamycin Phosphate 50 mls @ 100 mls/hr 02/16/19 18:00 02/17/19 12:08 Cleocin 600 Mg/50 Ml IV 100 mls/hr Q6HR BLOSSOM Administration Ketorolac Tromethamine 15 mg 02/15/19 17:58 02/15/19 18:19 Toradol Inj (15mg) IVP 02/20/19 17:57 15 mg Q6HR PRN Administration PAIN Levothyroxine Sodium 150 mcg 02/16/19 07:00 02/17/19 06:17 Synthroid PO 150 mcg QDAC BLOSSOM Administration Lorazepam 0.5 mg 02/15/19 13:28 02/15/19 20:35 Ativan PO 0.5 mg Q6H PRN Administration Nausea / Vomiting Metoprolol Succinate 25 mg 02/16/19 09:00 02/17/19 09:18 Toprol Xl PO 25 mg DAILY BLOSSOM Administration Pantoprazole Sodium 40 mg 02/16/19 07:00 02/17/19 06:18 Protonix PO 40 mg QDAC BLOSSOM Administration Polyethylene Glycol 17 gm 02/16/19 09:00 02/17/19 09:19 Miralax PO Not Given DAILY BLOSSOM Prochlorperazine Edisylate 10 mg 02/15/19 13:21 02/16/19 17:16 Compazine Inj IVP 10 mg Q6HR PRN Administration Nausea / Vomiting Sodium Chloride 10 ml 02/15/19 13:21 02/17/19 12:08 Normal Saline Flush 0.9% IVP 10 ml PRN PRN Administration NEEDED PER PROVIDER ORDERS Sodium Chloride 10 ml 02/15/19 17:00 02/17/19 06:18 Normal Saline Flush 0.9% IVP 10 ml 0100,0900,1700 BLOSSOM Administration Temazepam 7.5 mg 02/15/19 13:21 02/15/19 20:34 Restoril PO 7.5 mg QPM PRN Administration Insomnia - Lab Result Fish Bone Diagrams: 02/17/19 07:02 02/17/19 07:02 - Additional Planning My Orders: My Active Orders 02/16/19 18:00 Clindamycin 600 mg/50 ml [Cleocin 600 mg/50 ml] 50 ml IV Q6HR 02/18/19 05:00 CBC - COMP BLD CT W/AUTO DIFF [HEME] DAILYLAB 02/18/19 05:30 VANCOMYCIN TROUGH [CHEM] Timed Subjective - Subjective Patient Reports: Feeling Better, Other (Less pain in foot) Objective Vital Signs: Vital Signs - 24 hr 02/16/19 02/17/19 02/17/19 16:00 00:00 08:00 Temperature 36.5 C 37.2 C 36.7 C Heart Rate [ 63 63 71 Brachial] Respiratory 20 20 18 Rate Blood Pressure 125/67 113/60 119/66 [Right Brachial artery] O2 Saturation 100 96 98 Oxygen O2 Source Room air I&O (Last 24 Hrs): Intake and Output Totals x24h 02/15/19 02/16/19 02/17/19 23:59 23:59 23:59 Intake Total 3630.0 2595 570 Output Total 475 Balance 3630.0 2120 570 General: Alert, Oriented x3 HEENT: Mucous membr. moist/pink, Other (Eyelids appear swollen, not red) Neck: Supple Neuro: Non Focal Cardiovascular: Regular rate Respiratory: No respiratory distress Abdomen: Soft Extremities: Other (Smaller overall area of redness of upper foot and toes, less swollen and less tender 2nd and 3rd toes. No skin break down.) - Results Results: Laboratory Results WBC 4.7 x10^3/uL (4.8-10.8) L 02/17/19 07:02 RBC 3.29 10^6/uL (4.70-6.10) L 02/17/19 07:02 Hgb 11.0 g/dL (14.0-18.0) L 02/17/19 07:02 Hct 31.9 % (42.0-52.0) L 02/17/19 07:02 MCV 96.8 fL (80.0-94.0) H 02/17/19 07:02 MCH 33.6 pg (27.0-31.0) H 02/17/19 07:02 MCHC 34.7 g/dL (32.0-36.0) 02/17/19 07:02 RDW 12.6 % (12.0-15.0) 02/17/19 07:02 Plt Count 161 10^3/uL (130-450) 02/17/19 07:02 MPV 8.0 fL (7.4-11.4) 02/17/19 07:02 Neut # (Auto) 2.1 10^3/uL (1.5-6.6) 02/17/19 07:02 Lymph # (Auto) 1.7 10^3/uL (1.5-3.5) 02/17/19 07:02 [place] # (Auto) 0.6 10^3/uL (0.0-1.0) 02/17/19 07:02 Eos # (Auto) 0.3 10^3/uL (0.0-0.7) 02/17/19 07:02 Baso # (Auto) 0.1 10^3/uL (0.0-0.1) 02/17/19 07:02 Absolute Nucleated RBC 0.00 x10^3/uL 02/17/19 07:02 Nucleated RBC % 0.0 /100WBC 02/17/19 07:02 ESR 47 mm/Hr (0-20) H 02/15/19 13:23 PT 14.7 secs (9.9-12.6) H 02/15/19 13:23 INR 1.3 (0.8-1.2) H 02/15/19 13:23 Sodium 137 mmol/L (135-145) 02/17/19 07:02 Potassium 3.3 mmol/L (3.5-5.0) L 02/17/19 07:02 Chloride 107 mmol/L (101-111) 02/17/19 07:02 Carbon Dioxide 25 mmol/L (21-32) 02/17/19 07:02 Anion Gap 5.0 (6-13) L 02/17/19 07:02 BUN 9 mg/dL (6-20) 02/17/19 07:02 Creatinine 0.8 mg/dL (0.6-1.2) 02/17/19 07:02 Estimated GFR (MDRD) 96 (>89) 02/17/19 07:02 Glucose 88 mg/dL (70-100) 02/17/19 07:02 Lactic Acid 0.8 mmol/L (0.5-2.2) 02/15/19 13:23 Uric Acid 5.2 mg/dL (2.6-7.2) 02/15/19 12:32 Calcium 8.4 mg/dL (8.5-10.3) L 02/17/19 07:02 Total Bilirubin 0.8 mg/dL (0.2-1.0) 02/15/19 13:23 AST 43 IU/L (10-42) H 02/15/19 13:23 ALT 51 IU/L (10-60) 02/15/19 13:23 Alkaline Phosphatase 68 IU/L (42-121) 02/15/19 13:23 C-Reactive Protein 5.8 mg/dL (0-1.0) H 02/15/19 13:23 Total Protein 6.7 g/dL (6.7-8.2) 02/15/19 13:23 Albumin 3.4 g/dL (3.2-5.5) 02/15/19 13:23 Globulin 3.3 g/dL (2.1-4.2) 02/15/19 13:23 Albumin/Globulin Ratio 1.0 (1.0-2.2) 02/15/19 13:23 Lipase 51 U/L (22-51) 02/15/19 13:23 TSH 3.69 uIU/mL (0.34-5.60) 02/16/19 04:48 Urine Color DARK YELLOW 02/16/19 06:44 Urine Clarity CLEAR (CLEAR) 02/16/19 06:44 Urine pH 6.0 PH (5.0-7.5) 02/16/19 06:44 Ur Specific [place] 1.025 (1.002-1.030) 02/16/19 06:44 Urine Protein NEGATIVE mg/dL (NEGATIVE) 02/16/19 06:44 Urine Glucose (UA) NEGATIVE mg/dL (NEGATIVE) 02/16/19 06:44 Urine Ketones NEGATIVE mg/dL (NEGATIVE) 02/16/19 06:44 Urine Occult Blood NEGATIVE (NEGATIVE) 02/16/19 06:44 Urine Nitrite NEGATIVE (NEGATIVE) 02/16/19 06:44 Urine Bilirubin NEGATIVE (NEGATIVE) 02/16/19 06:44 Urine Urobilinogen 0.2 (NORMAL) E.U./dL (NORMAL) 02/16/19 06:44 Ur Leukocyte Esterase NEGATIVE (NEGATIVE) 02/16/19 06:44 Ur Microscopic Review NOT INDICATED 02/16/19 06:44 Urine Culture Comments NOT INDICATED 02/16/19 06:44 Nasal Screen MRSA (PCR) NEGATIVE (NEGATIVE) 02/15/19 15:34 - Procedures Procedures: Procedures EXCISION OF ESOPHAGOGASTRIC JUNCTION, ENDO, DIAGN (12/20/18) EXCISION OF MIDDLE ESOPHAGUS, ENDO, DIAGN (12/20/18) INSERTION OF INFUSION DEV INTO SUP VENA CAVA, PERC APPROACH (01/07/19)
[2019-02-17] MEDS: PROCHLORPERAZINE 10 MG/2 ML VIAL IVP PRN (14:22)
[2019-02-17] MEDS: SACCHAROMYCES BOULARDII 250 MG CAPSULE PO SCH (18:24)
[2019-02-18] MEDS: SODIUM CHLORIDE FLUSH 0.9% 10 ML SYRINGE IVP SCH ×3 (00:08→12:04)
[2019-02-18] MEDS: CLINDAMYCIN 600 MG/50 ML 50 ML IV SCH ×4 (00:09→17:41)
[2019-02-18] MEDS: SODIUM CHLORIDE FLUSH 0.9% 10 ML SYRINGE IVP PRN ×4 (05:36→20:52)
[2019-02-18 05:57] LABS: BASOPHILS # (AUTO) 0.1 10^3/uL (0.0-0.1); BASOPHILS % (AUTO) 1.5 %; EOSINOPHILS # (AUTO) 0.3 10^3/uL (0.0-0.7); EOSINOPHILS % (AUTO) 7.2 %; HGB - HEMOGLOBIN 10.9 g/dL (14.0-18.0); LYMPHOCYTES # (AUTO) 1.2 10^3/uL (1.5-3.5); LYMPHOCYTES % (AUTO) 27.5 %; MEAN CORPUSCULAR HEMOGLOBIN 33.5 pg (27.0-31.0); MEAN CORPUSCULAR HGB CONC 34.7 g/dL (32.0-36.0); MEAN CORPUSCULAR VOLUME 96.6 fL (80.0-94.0); MEAN PLATELET VOLUME 7.9 fL (7.4-11.4); MONOCYTES # (AUTO) 0.6 10^3/uL (0.0-1.0); MONOCYTES % (AUTO) 12.6 %; NEUTROPHILS # (AUTO) 2.3 10^3/uL (1.5-6.6); NEUTROPHILS % (AUTO) 51.2 %; PLT - PLATELET COUNT 156 10^3/uL (130-450); RED BLOOD COUNT 3.24 10^6/uL (4.70-6.10); RED CELL DISTRIBUTION WIDTH 12.7 % (12.0-15.0); WHITE BLOOD COUNT 4.4 x10^3/uL (4.8-10.8)
[2019-02-18 06:05] LABS: VANCOMYCIN,TROUGH 15.3 ug/mL (10.0-20.0)
[2019-02-18] MEDS: VANCOMYCIN INJ 1 GM in SODIUM CHLORIDE 0.9% 250 ML IV SCH ×2 (06:33→18:17)
[2019-02-18] MEDS: PANTOPRAZOLE 40 MG TABLET PO SCH (06:34)
[2019-02-18] MEDS: LEVOTHYROXINE 75 MCG TABLET PO SCH (06:34)
[2019-02-18] MEDS: METOPROLOL SUCCINATE 25 MG TABLET PO SCH (08:42)
[2019-02-18] MEDS: buPROPion SR 150 MG TABLET PO SCH ×2 (08:42→20:47)
[2019-02-18] MEDS: SACCHAROMYCES BOULARDII 250 MG CAPSULE PO SCH ×2 (08:42→16:31)
[2019-02-18] MEDS: ENOXAPARIN 40 MG/0.4 ML SYRINGE SUBQ SCH (08:43)
[2019-02-18] MEDS: POLYETHYLENE GLYCOL 3350 17 GM PACKET PO SCH (08:43)
--- NOTE | 2019-02-18 10:22 | PROVIDER PROGRESS NOTE ---
Subjective - Prog Note Date Prog Note Date: 02/18/19 Prog Note Time: 10:20 - Subjective Pt reports feeling: Improved Subjective: Carroll admits to great improvement overall to his LLE. He denies chest pain, headaches, nausea, vomiting, diarrhea or a new cough. Current Medications - Current Medications Current Medications: Active Medications: Acetaminophen (Tylenol) 650 mg PO Q4HR PRN Hydrocodone Bitart/Acetaminophen ([place] 5/325) 1 tab PO Q4HR PRN Bupropion HCl (Wellbutrin Sr) 150 mg PO BID BLOSSOM Enoxaparin Sodium (Lovenox) 40 mg SUBQ DAILY BLOSSOM Heparin Sodium (Beef Lung) () 30 - 50 unit IVP PRN PRN Vancomycin HCl 1 gm/ Sodium (Chloride) 250 mls @ 167 mls/hr IV Q12H BLOSSOM Clindamycin Phosphate (Cleocin 600 Mg/50 Ml) 50 mls @ 100 mls/hr IV Q6HR BLOSSOM Ketorolac Tromethamine (Toradol Inj (15mg)) 15 mg IVP Q6HR PRN Levothyroxine Sodium (Synthroid) 150 mcg PO QDAC BLOSSOM Lorazepam (Ativan) 0.5 mg PO Q6H PRN Metoprolol Succinate (Toprol Xl) 25 mg PO DAILY BLOSSOM Pantoprazole Sodium (Protonix) 40 mg PO QDAC BLOSSOM Polyethylene Glycol (Miralax) 17 gm PO DAILY BLOSSOM Prochlorperazine Edisylate (Compazine Inj) 10 mg IVP Q6HR PRN Saccharomyces Boulardii (Florastor) 250 mg PO BIDWM BLOSSOM Temazepam (Restoril) 7.5 mg PO QPM PRN HOME meds: Levothyroxine Sodium 150 mcg PO DAILY 12/20/18 Pantoprazole [Protonix] 40 mg PO QDAC 12/20/18 buPROPion [Wellbutrin Sr] 150 mg PO BID 12/20/18 LORazepam [Lorazepam] 0.5 mg PO Q6H PRN 01/08/19 Amox/Clav 875/125 [Augmentin] 1 each PO Q12H 02/15/19 Metoprolol Succinate [Toprol Xl] 25 mg PO DAILY 02/15/19 Objective - Vital Signs/Intake & Output Reviewed Vital Signs: Yes Vital Signs: Vital Signs x48h Temp Pulse Resp BP Pulse Ox 02/18/19 07:35 36.8 C 79 18 124/76 96 Intake & Output: Intake & Output 02/15/19 02/16/19 02/17/19 02/18/19 23:59 23:59 23:59 23:59 Intake Total 3630.0 2595 1400 1310 Output Total 475 Balance 3630.0 2120 1400 1310 - Objective General Appearance: positive: No acute distress, Alert Eyes Bilateral: positive: Normal inspection, PERRL ENT: positive: ENT inspection nml, Pharynx nml, No signs of dehydration Neck: positive: Thyroid nml, No JVD, Trachea midline Respiratory: positive: Chest non-tender, No respiratory distress, Breath sounds nml Cardiovascular: positive: Regular rate & rhythm, No murmur, No gallop Peripheral Pulses: 1+ Radial (R), 1+ Radial (L) Abdomen: positive: Non-tender, Nml bowel sounds Back: positive: Nml inspection Skin: positive: Color nml, No rash, Warm, Dry Extremities: positive: Full ROM, Pedal edema (w) Neurologic/Psychiatric: positive: Oriented x3, CN's nml (2-12), Motor nml, Sensation nml, Mood/affect nml Reflexes: Bicep (R): 4+, Bicep (L): 4+ - Lab Results Fish Bones: 02/18/19 05:50 02/17/19 07:02 Other Labs: Lab Results x24hrs 02/18/19 02/18/19 Range/Units 05:50 05:50 WBC 4.4 L (4.8-10.8) x10^3/uL RBC 3.24 L (4.70-6.10) 10^6/uL Hgb 10.9 L (14.0-18.0) g/dL Hct 31.3 L (42.0-52.0) % MCV 96.6 H (80.0-94.0) fL MCH 33.5 H (27.0-31.0) pg MCHC 34.7 (32.0-36.0) g/dL RDW 12.7 (12.0-15.0) % Plt Count 156 (130-450) 10^3/uL MPV 7.9 (7.4-11.4) fL Neut # (Auto) 2.3 (1.5-6.6) 10^3/uL Lymph # (Auto) 1.2 L (1.5-3.5) 10^3/uL [place] # (Auto) 0.6 (0.0-1.0) 10^3/uL Eos # (Auto) 0.3 (0.0-0.7) 10^3/uL Baso # (Auto) 0.1 (0.0-0.1) 10^3/uL Absolute Nucleated RBC 0.00 x10^3/uL Nucleated RBC % 0.1 /100WBC Last Dose Date UNK Last Dose Time UNK Vancomycin Trough 15.3 (10.0-20.0) ug/mL ABX Reporting Has patient been on IV antibiotics over the past 48 hours?: Yes Sepsis Event Note (H) - Evaluation Current Stage of Sepsis: Ruled out Assessment/Plan - Problem List (1) Cellulitis Impression: - Left great toe, 2nd toe, and 3rd toe involvement, no open areas, - See chart for photos - Blood cultures - NGTD - Continue Clinda plus Vano Plan: continue iv antibiotics for 2 days minimum, then transition probably to po Clinda for a 7-10 day course Qualifiers: Site of cellulitis: extremity Site of cellulitis of extremity: lower extremity Laterality: left Qualified Code(s): L03.116 - Cellulitis of left lower limb (2) Esophageal cancer, stage IV Impression: - Stable but with difficulty swallowing -tolerates a soft diet and pills cut or crushed - [place] [facility] [place] Plan: Continue to treat acute infection, monitor for improvement (3) HTN (hypertension) Impression: - Metoprolol succinate 25 mg PO daily - B/P 124/72 Plan: Continue to monitor Qualifiers: Hypertension type: essential hypertension Qualified Code(s): I10 - Essential (primary) hypertension (4) Hypothyroidism Impression: - TSH 3.69 Plan: Continue on Synthroid daily
[2019-02-18] MEDS: HYDROcod/ACETAM 5/325 MG TABLET PO PRN ×2 (10:30→20:51)
[2019-02-18] MEDS: KETOROLAC 15 MG/ML VIAL IVP PRN ×2 (10:31→20:52)
[2019-02-19] MEDS: CLINDAMYCIN 600 MG/50 ML 50 ML IV SCH ×2 (00:27→06:07)
[2019-02-19] MEDS: SODIUM CHLORIDE FLUSH 0.9% 10 ML SYRINGE IVP SCH ×2 (00:31→09:40)
[2019-02-19] MEDS: VANCOMYCIN INJ 1 GM in SODIUM CHLORIDE 0.9% 250 ML IV SCH (06:42)
[2019-02-19] MEDS: PANTOPRAZOLE 40 MG TABLET PO SCH (06:43)
[2019-02-19] MEDS: LEVOTHYROXINE 75 MCG TABLET PO SCH (06:43)
[2019-02-19 08:34] LABS: BASOPHILS # (AUTO) 0.1 10^3/uL (0.0-0.1); BASOPHILS % (AUTO) 1.3 %; EOSINOPHILS # (AUTO) 0.3 10^3/uL (0.0-0.7); EOSINOPHILS % (AUTO) 6.5 %; LYMPHOCYTES # (AUTO) 0.9 10^3/uL (1.5-3.5); LYMPHOCYTES % (AUTO) 18.1 %; MEAN CORPUSCULAR HEMOGLOBIN 33.8 pg (27.0-31.0); MEAN CORPUSCULAR HGB CONC 34.9 g/dL (32.0-36.0); MEAN CORPUSCULAR VOLUME 96.7 fL (80.0-94.0); MEAN PLATELET VOLUME 7.8 fL (7.4-11.4); MONOCYTES # (AUTO) 0.6 10^3/uL (0.0-1.0); NEUTROPHILS # (AUTO) 3.2 10^3/uL (1.5-6.6); NEUTROPHILS % (AUTO) 63.1 %; PLT - PLATELET COUNT 158 10^3/uL (130-450); RED BLOOD COUNT 3.27 10^6/uL (4.70-6.10); RED CELL DISTRIBUTION WIDTH 13.3 % (12.0-15.0)
[2019-02-19 08:47] LABS: ALBUMIN 2.6 g/dL (3.2-5.5); BILIRUBIN,TOTAL 0.9 mg/dL (0.2-1.0); CALCIUM 8.3 mg/dL (8.5-10.3); TOTAL PROTEIN 5.2 g/dL (6.7-8.2)
[2019-02-19 08:50] VITALS: BP 128/77
[2019-02-19] MEDS: SACCHAROMYCES BOULARDII 250 MG CAPSULE PO SCH (09:39)
[2019-02-19] MEDS: ENOXAPARIN 40 MG/0.4 ML SYRINGE SUBQ SCH (09:39)
[2019-02-19] MEDS: METOPROLOL SUCCINATE 25 MG TABLET PO SCH (09:39)
[2019-02-19] MEDS: buPROPion SR 150 MG TABLET PO SCH (09:39)
[2019-02-19] MEDS: POLYETHYLENE GLYCOL 3350 17 GM PACKET PO SCH (09:40)
--- NOTE | 2019-02-19 12:07 | Discharge Plan ---
Discharge Plan Disposition: Home, Self Care Condition: Poor Prescriptions: Clindamycin [Cleocin] 300 mg PO Q6H 7 Days #56 capsule Saccharomyces Boulardii [Florastor] 250 mg PO BID #14 capsule Diet: Regular Activity Restrictions: Activity as Tolerated Shower Restrictions: No (fall precaution) Instruction Topics: Clindamycin capsules, Cellulitis Ch Additional Instructions or Follow Up instructions: You may followup your PCP in one week, followup your oncologist as your schedule. Should your symptoms return or worsen, you may present ER or call 911 for help No Smoking: If you smoke, Please STOP! Call for help. Follow-up with: Haile Ortiz MD [Primary Care Provider] -
--- NOTE | 2019-02-19 12:10 | DISCHARGE SUMMARY ---
Discharge Summary Discharge Date: 02/19/19 Discharging Provider: PORTER Primary Care Provider: Dr. Ortiz Condition at Discharge: Poor Discharge Disposition: 01 Home, Self Care Discharge Facility Name: home - DIAGNOSES Admission Diagnoses: (1) Cellulitis (2) HTN (hypertension) (3) Esophageal cancer, stage IV (4) Hypothyroidism (5) Depression Discharge Diagnoses with Status of Each Condition: (1) Cellulitis (2) HTN (hypertension) (3) Esophageal cancer, stage IV (4) Hypothyroidism (5) Depression - HPI History of Present Illness: pt is 68 male with recently diagnosis of esophageal cancer stage IV, follow with his oncologist Dr. Hendrix, who present ER complain of left redness, swelling pain and warmth of his left second toe. pt was prescribed Augmentin in out-pt clinic, but worsening with more swollen, more redness, more painful, and swelling was spreading up to his foot to his anterior ankle. - HOSPITAL COURSE Hospital Course: (1) Cellulitis significantly reduced redness. No more swelling. WBC is normal now. pt is prescribed Clindamycin to finish the antibiotics course. (2) HTN (hypertension) stable, followup PCP management (3) Esophageal cancer, stage IV pt had appointment with Dr. Hendrix tomorrow (4) Hypothyroidism stable, (5) Depression stable, followup PCP management. - ALLERGIES Allergies/Adverse Reactions: Allergies Allergy/AdvReac Type Severity Reaction Status Date / Time No Known Drug Allergies Allergy Verified 02/15/19 12:12 - MEDICATIONS Home Medications: Ambulatory Orders Medication Instructions Recorded Confirmed Levothyroxine Sodium 150 mcg PO DAILY 12/20/18 02/15/19 Pantoprazole [Protonix] 40 mg PO QDAC 12/20/18 02/15/19 buPROPion [Wellbutrin Sr] 150 mg PO BID 12/20/18 02/15/19 LORazepam [Lorazepam] 0.5 mg PO Q6H PRN 01/08/19 02/15/19 Lidocaine/Prilocain 2.5% Cream 1 cm TOP PRN PRN #1 tube 01/08/19 02/15/19 [Emla 2.5% Cream] Ondansetron HCl [Zofran] 1 tab PO Q4H PRN #30 tablet 01/08/19 02/15/19 Prochlorperazine Maleate 10 mg PO Q6H PRN #30 tablet 01/08/19 02/15/19 Metoprolol Succinate [Toprol Xl] 25 mg PO DAILY 02/15/19 02/15/19 Clindamycin [Cleocin] 300 mg PO Q6H 7 Days #56 capsule 02/19/19 Saccharomyces Boulardii [Florastor] 250 mg PO BID #14 capsule 02/19/19 - PHYSICAL EXAM AT DISCHARGE General Appearance: positive: No acute distress, Alert. negative: Lethargic Eyes Bilateral: positive: Normal inspection, PERRL, No lid inflammation, Conjunctivae nml ENT: positive: ENT inspection nml, Pharynx nml, No signs of dehydration. negative: Purulent nasal drainage, Pharyngeal erythema, Oral lesions Neck: positive: Nml inspection, Thyroid nml, No JVD, Trachea midline. negative: Thyromegaly, Lymphadenopathy (R), Lymphadenopathy (L), Stiff neck, Swelling/bruising, Tracheal deviation Respiratory: positive: Chest non-tender, No respiratory distress, Breath sounds nml. negative: Wheezes, Rales, Rhonchi Cardiovascular: positive: Regular rate & rhythm, No murmur, No gallop. negative: Irregularly irregular, Extrasystoles, Tachycardia, Bradycardia, JVD present, Systolic murmur, Diastolic murmur Peripheral Pulses: positive: 2+ Abdomen: positive: Non-tender, No organomegaly, Nml bowel sounds, No distention. negative: Tenderness, Guarding, Rebound Back: positive: Nml inspection. negative: CVA tenderness (R), CVA tenderness (L) Skin: positive: Color nml, No rash, Warm, Dry. negative: Cyanosis, Diaphoresis, Pallor, Skin rash Extremities: positive: Non-tender, Full ROM, Nml appearance. negative: Calf tenderness, Joint swelling, Donnell's sign/cords Neurologic/Psychiatric: positive: Oriented x3, Motor nml, Sensation nml, Mood/affect nml. negative: Weakness, Sensory loss, Facial droop, Slurred/abnml speech, Depressed mood/affect - LABS Result Diagrams: 02/19/19 08:29 02/19/19 08:29 - SEPSIS Current Stage of Sepsis: Ruled out - FOLLOW UP Follow Up: You may followup your PCP in one week, followup your oncologist as your schedule. Should your symptoms return or worsen, you may present ER or call 911 for help - TIME SPENT Time Spent in Discharge (Minutes): 50
[2019-02-19] MEDS: SODIUM CHLORIDE FLUSH 0.9% 10 ML SYRINGE IVP PRN (12:24)
== END 2019-02-19 12:30 | disposition home or self-care (01) | DRG 603 ==
LOC: ED 12:02 → ICU 13:21 → MS2 02-16 15:25
PROVIDERS: ADMIT Internal Medicine; ATTEND Nurse Practitioner Gerontology
DX: L03.116 Cellulitis of left lower limb (principal); L03.032 Cellulitis of left toe; C15.9 Malignant neoplasm of esophagus, unspecified; Z92.21 Personal history of antineoplastic chemotherapy; E78.00 Pure hypercholesterolemia, unspecified; I10 Essential (primary) hypertension; I49.9 Cardiac arrhythmia, unspecified; K21.9 Gastro-esophageal reflux disease without esophagitis; H54.7 Unspecified visual loss; E03.9 Hypothyroidism, unspecified; F32.9 Major depressive disorder, single episode, unspecified; M10.9 Gout, unspecified; Z87.891 Personal history of nicotine dependence; E87.6 Hypokalemia; R13.10 Dysphagia, unspecified
CPT/HCPCS: 36415; 80048; 80053; 80202; 81003; 83605; 83690; 84443; 84550; 85025; 85610; 85651; 86140; 87040; 87150; 99283; 99284; A9270; J1650; J3370; 81001; 87086

== ENCOUNTER 2019-02-22 13:19 | Inpatient (IN) | payer MEDICARE, OTHER ==
--- NOTE | 2019-02-22 13:59 | ED Physician Documentation ---
PD HPI SKIN - Stated complaint Stated Complaint: LEFT FOOT PAIN - Chief complaint Chief Complaint: Wound - History obtained from History obtained from: Patient - History of Present Illness Timing - onset: How many weeks ago (1) Timing - duration: Weeks (1) Timing - details: Gradual onset, Waxing and waning (He had had redness on the dorsum of the foot starting at the base of the second toe and spread into the dorsal lateral aspect of the top of the foot. He was in the hospital treated for cellulitis with concern for his immunocompromise given chemotherapy. He had a normal white count. His ESR was elevated at 47. His serum uric acid was normal. He was improved in the hospital and was discharged on clindamycin. He states in the last 3 days that he has had increased redness and pain again. He still denies any fevers.) Location: LLE (Dorsolateral distal foot and proximal second toe) Quality / character: Painful, Burning, Discolored (red) Improved by: Antibiotics, Other (was given anti-inflammatories in the hostpital as well.) Associated symptoms: No: Fever, Myalgias Contributing factors: No: Exposed to medication, Insect bite /sting Similar symptoms before: Diagnosis (cellulitis of the foot and just in the hospital) Recently seen: Admitted Review of Systems Constitutional: reports: Myalgias. denies: Fever, Chills Nose: denies: Rhinorrhea / runny nose, Congestion Throat: denies: Sore throat Cardiac: denies: Chest pain / pressure Respiratory: denies: Dyspnea, Cough GI: denies: Abdominal Pain, Nausea, Vomiting, Diarrhea Musculoskeletal: denies: Neck pain, Back pain PD PAST MEDICAL HISTORY - Past Medical History Cardiovascular: Hypertension, High cholesterol, Arrhythmia Respiratory: None Neuro: None Endocrine/Autoimmune: HyPOthyroidism GI: GERD : None HEENT: Chronic vision loss Psych: Depression Musculoskeletal: Gout Derm: None - Past Surgical History General: Colonoscopy, EGD Ortho: Spine surgery, Other HEENT: Cataracts - Present Medications Home Medications: Ambulatory Orders Medication Instructions Recorded Confirmed Levothyroxine Sodium 150 mcg PO DAILY 12/20/18 02/20/19 Pantoprazole [Protonix] 40 mg PO QDAC 12/20/18 02/20/19 buPROPion [Wellbutrin Sr] 150 mg PO BID 12/20/18 02/20/19 LORazepam [Lorazepam] 0.5 mg PO Q6H PRN 01/08/19 02/20/19 Lidocaine/Prilocain 2.5% Cream 1 cm TOP PRN PRN #1 tube 01/08/19 02/15/19 [Emla 2.5% Cream] Ondansetron HCl [Zofran] 1 tab PO Q4H PRN #30 tablet 01/08/19 02/15/19 Prochlorperazine Maleate 10 mg PO Q6H PRN #30 tablet 01/08/19 02/15/19 Metoprolol Succinate [Toprol Xl] 25 mg PO DAILY 02/15/19 02/20/19 Clindamycin [Cleocin] 300 mg PO Q6H 7 Days #56 capsule 02/19/19 02/20/19 Saccharomyces Boulardii [Florastor] 250 mg PO BID #14 capsule 02/19/19 02/20/19 - Allergies Allergies/Adverse Reactions: Allergies Allergy/AdvReac Type Severity Reaction Status Date / Time No Known Drug Allergies Allergy Verified 02/22/19 13:45 - Social History Does the pt smoke?: No Smoking Status: Never smoker Does the pt drink ETOH?: No Does the pt have substance abuse?: No - Immunizations Immunizations are current?: Yes - POLST Patient has POLST: No PD ED PE NORMAL - Vitals Vital signs reviewed: Yes - General General: Alert and oriented X 3, Well developed/nourished, Other (appears in pain) - HEENT HEENT: Pharynx benign - Neck Neck: Supple, no meningeal sign, No adenopathy - Cardiac Cardiac: RRR, No murmur - Respiratory Respiratory: Clear bilaterally - Abdomen Abdomen: Soft, Non tender - Derm Derm: Normal color, Warm and dry - Extremities Extremities: Other (Dorsal lateral aspect of the distal foot shows redness swelling and marked tenderness. There are no skin sores no blisters. I do not feel any fluctuance and a area that would look drainable. The base of the second toe has redness and swelling as well. Again no appreciable effusion. There is some tenderness and redness at the first and T head. There is a little bit of dry skin between the toes but no obvious purulence. The plantar aspect of the foot is normal.) - Neuro Neuro: Alert and oriented X 3, No motor deficit, No sensory deficit Results - Vitals Vitals: Vital Signs - 24 hr 02/22/19 02/22/19 13:42 16:09 Temperature 36.8 C 36.5 C Heart Rate 79 61 Respiratory 16 16 Rate Blood Pressure 145/75 H 122/73 O2 Saturation 99 98 Oxygen O2 Source Room air - Labs Labs: Laboratory Tests 02/22/19 02/22/19 02/22/19 15:26 15:26 15:26 WBC 3.6 L RBC 3.22 L Hgb 10.6 L Hct 31.2 L MCV 97.0 H MCH 32.9 H MCHC 33.9 RDW 13.3 Plt Count 207 MPV 7.7 Neut # (Auto) 1.2 L Lymph # (Auto) 1.2 L [place] # (Auto) 0.9 Eos # (Auto) 0.2 Baso # (Auto) 0.1 Absolute Nucleated RBC 0.00 Nucleated RBC % 0.1 ESR 61 H Sodium 140 Potassium 3.6 Chloride 108 Carbon Dioxide 25 Anion Gap 7.0 BUN 12 Creatinine 0.9 Estimated GFR (MDRD) 84 L Glucose 89 Calcium 8.5 Total Bilirubin 0.6 AST 37 ALT 49 Alkaline Phosphatase 67 Total Protein 5.7 L Albumin 2.9 L Globulin 2.8 Albumin/Globulin Ratio 1.0 Lipase 53 H PD MEDICAL DECISION MAKING - ED course Complexity details: reviewed old records (He was just in the hospital and treated for cellulitis of the foot with improvement while on IV antibiotics and worsening with discharged on clindamycin. Consider differential of recurrent or persistent cellulitis versus a good distribution for possible gout (serum uric acid level was normal in the hospital but does not exclude gout). Given his immunocompromise with being on chemotherapy, the worse problem would be cellulitis and infection and will give him IV antibiotics again and I will talk with the hospitalist.), reviewed results, considered differential, d/w patient Departure - Departure Disposition: [facility] DC/Xfer Clinical Impression: Cellulitis of foot, Failure of outpatient treatment Condition: Stable Record reviewed to determine appropriate education?: Yes
[2019-02-22] MEDS ORDERED: SODIUM CHLORIDE 0.9% 1,000 ML IV ONE (14:21)
[2019-02-22] MEDS ORDERED: ceFAZolin 2 GM/50 ML 2 GM/50 ML BAG IV STA (14:23)
[2019-02-22] MEDS ORDERED: VANCOMYCIN INJ 2 GM in SODIUM CHLORIDE 0.9% 500 ML IV STA (14:24)
[2019-02-22] MEDS ORDERED: KETOROLAC 15 MG/ML VIAL IVP STA (14:25)
[2019-02-22] MEDS ORDERED: HYDROmorphone 1 MG/ML CARPUJECT IVP STA (14:25)
[2019-02-22 15:36] LABS: BASOPHILS # (AUTO) 0.1 10^3/uL (0.0-0.1); BASOPHILS % (AUTO) 1.4 %; EOSINOPHILS # (AUTO) 0.2 10^3/uL (0.0-0.7); HGB - HEMOGLOBIN 10.6 g/dL (14.0-18.0); LYMPHOCYTES # (AUTO) 1.2 10^3/uL (1.5-3.5); LYMPHOCYTES % (AUTO) 33.6 %; MEAN CORPUSCULAR HEMOGLOBIN 32.9 pg (27.0-31.0); MEAN CORPUSCULAR HGB CONC 33.9 g/dL (32.0-36.0); MEAN PLATELET VOLUME 7.7 fL (7.4-11.4); MONOCYTES # (AUTO) 0.9 10^3/uL (0.0-1.0); MONOCYTES % (AUTO) 24.6 %; NEUTROPHILS # (AUTO) 1.2 10^3/uL (1.5-6.6); NEUTROPHILS % (AUTO) 34.4 %; PLT - PLATELET COUNT 207 10^3/uL (130-450); RED BLOOD COUNT 3.22 10^6/uL (4.70-6.10); RED CELL DISTRIBUTION WIDTH 13.3 % (12.0-15.0); WHITE BLOOD COUNT 3.6 x10^3/uL (4.8-10.8)
[2019-02-22 15:50] LABS: ALBUMIN 2.9 g/dL (3.2-5.5); BILIRUBIN,TOTAL 0.6 mg/dL (0.2-1.0); CALCIUM 8.5 mg/dL (8.5-10.3); CREATININE 0.9 mg/dL (0.6-1.2); TOTAL PROTEIN 5.7 g/dL (6.7-8.2)
[2019-02-22] MEDS ORDERED: ONDANSETRON 4 MG/2 ML VIAL IVP PRN (17:33)
[2019-02-22] MEDS ORDERED: LORazepam 0.5 MG TABLET PO PRN (18:08)
--- NOTE | 2019-02-22 18:17 | HISTORY & PHYSICAL EXAMINATION ---
Chief Complaint - Chief Complaint Chief Complaint: left foot cellulitis History of Present Illness - History of Present Illness HPI Comment/Other: Mr. Sotomayor is a 68-yrs-old male with a PMH significant for HTN, hypothyroidism, HLD, arrhythmia, GERD, Gout, chronic vision loss, depression, esophageal cancer stage IV, status post cycle 2 of chemotherapy of FOLFOX, who present ER complain of left foot cellulitis. pt has been admitted for left second toe infection and discharged a few days. Pt report he visited his oncologist on last Wednesdays. Pt was not given chemotherapy agents in this time, per pt report, because of chemotherapy side effect and ongoing infection. Since pt has been on Chemotherapy agents, pt continue present neutropenia, has been immuno-compromised status. Pt report his second toe infection has been doing well since discharge. Now his dorsum left foot become swelling, erythema, warm and painful. Pt's report pt walked lots since pt was discharged from hospital. pt report his left foot increase pain, and swelling on last night. He denies fever, chill. He also denies cough, shortness of breath, chest pain, abdominal pain, nausea, vomiting, or diarrhea. Lab test reveals WBC is 3.6. Pt is afebrile, and hemodynamic in ER. pt is admitted for cellulitis in his left foot. History - Past Medical History Cardiovascular: reports: Hypertension, High cholesterol, Arrhythmia Respiratory: reports: None Neuro: reports: None Endocrine/Autoimmune: reports: HyPOthyroidism GI: reports: GERD : reports: None HEENT: reports: Chronic vision loss Psych: reports: Depression Musculoskeletal: reports: Gout Derm: reports: None MRSA Hx?: No - Past Surgical History General: reports: Colonoscopy, EGD Ortho: reports: Spine surgery, Other HEENT: reports: Cataracts - Family & Social History Family History Comment/Other: pt is living with at [place] - POLST Patient has POLST: No POLST Status: Full Code Meds/Allgy - Home Medications Home Medications: Ambulatory Orders Medication Instructions Recorded Confirmed Levothyroxine Sodium 150 mcg PO DAILY 12/20/18 02/23/19 Pantoprazole [Protonix] 40 mg PO QDAC 12/20/18 02/23/19 buPROPion [Wellbutrin Sr] 150 mg PO BID 12/20/18 02/23/19 LORazepam [Lorazepam] 0.5 mg PO Q6H PRN 01/08/19 02/23/19 Lidocaine/Prilocain 2.5% Cream 1 cm TOP PRN PRN #1 tube 01/08/19 02/23/19 [Emla 2.5% Cream] Ondansetron HCl [Zofran] 1 tab PO Q4H PRN #30 tablet 01/08/19 02/23/19 Prochlorperazine Maleate 10 mg PO Q6H PRN #30 tablet 01/08/19 02/23/19 Metoprolol Succinate [Toprol Xl] 25 mg PO DAILY 02/15/19 02/23/19 Saccharomyces Boulardii [Florastor] 250 mg PO BID #14 capsule 02/19/19 02/23/19 - Allergies Allergies/Adverse Reactions: Allergies Allergy/AdvReac Type Severity Reaction Status Date / Time No Known Drug Allergies Allergy Verified 02/22/19 13:45 Review of Systems - Constitutional Constitutional: denies: Fatigue, Fever, Chills, Malaise, Weakness, Poor ap petite, Diaphoresis, Night sweats - Eyes Eyes: denies: Pain, Irritation, Amaurosis, Blurred vision, Spots in vision, Field loss, Vision loss, Dipolpia - Ears, Nose & Throat Ears, Nose & Throat: denies: Ear pain, Hearing loss, Tinnitus, Vertigo, Nasal pain, Nasal discharge, Nosebleeds, Nasal congestion, Postnasal drainage, Dentures, Sore throat, Hoarseness - Cardiovascular Cariovascular: denies: Irregular heart rate, Palpitations, Chest pain, Edema, Lightheadedness, Syncope, Exertional dyspnea, Decr. exercise tolerance - Respiratory Respiratory: denies: Cough, Sputum production, Wheezing, Snoring, Hemoptysis, Orthopnea, SOB at rest, SOB with exertion - Gastrointestinal Gastrointestinal: denies: Abdominal pain, Abdominal distention, Constipation, Diarrhea, Change in bowel habits, Rectal bleeding, Black stools, Bloody stools, Nausea, Vomiting, Bile emesis, Martin blood emesis, Coffee grounds emesis, Reflux/heartburn - Genitourinary Genitourinary: denies: Dysuria, Frequency, Urgency, Hematuria, Incontinence, Flank pain, Nocturia, Urethral discharge - Musculoskeletal Musculoskeletal: reports: Gout. denies: Muscle pain, Back pain, Muscle aches, Stiffness, Limited range of motion, Muscle weakness, Joint pain - Integumentary Integumentary: reports: Rash. denies: Pruritis, Lesions, Dryness, Lumps, Acne, Pigment changes, Nail changes - Neurological Neurological: denies: General weakness, Focal weakness, Headache, Dizziness, Numbness, Memory problems, Pre-existing deficit, Abnormal gait, Seizures, Incoordination, Slurred speech - Psychiatric Psychiatric: denies: Depression, Anxiety, Suicidal, Delusions, Hallucinations, Homicidal - Endocrine Endocrine: denies: Polyuria, Polydypsia, Polyphagia, Intolerance to cold - Hematologic/Lymphatic Hematologic/Lymphatic: reports: Recurrent infections. denies: Anemia, Bruising, Petechiae, Blood clots, Lymphadenopathy, Bleeding tendencies Prior Level of Functionality: pt is independent Exam - Vital Signs Reviewed Vital Signs: Yes Vital Signs: Vital Signs x48h Temp Pulse Resp BP Pulse Ox 02/22/19 16:09 36.5 C 61 16 122/73 98 02/22/19 13:42 36.8 C 79 16 145/75 H 99 - Physical Exam General Appearance: positive: No acute distress, Alert. negative: Lethargic Eyes Bilateral: positive: Normal inspection, PERRL, No lid inflammation, Conju nctivae nml ENT: positive: ENT inspection nml, Pharynx nml, No signs of dehydration. negative: Purulent nasal drainage, Pharyngeal erythema, Oral lesions Neck: positive: Nml inspection, Thyroid nml, No JVD, Trachea midline. negative: Thyromegaly, Lymphadenopathy (R), Lymphadenopathy (L), Stiff neck, Swelling/bruising, Tracheal deviation Respiratory: positive: Chest non-tender, No respiratory distress, Breath sounds nml. negative: Wheezes, Rales, Rhonchi Cardiovascular: positive: Regular rate & rhythm, No murmur, No gallop. negative: Irregularly irregular, Extrasystoles, Tachycardia, Bradycardia, JVD present, Systolic murmur, Diastolic murmur Peripheral Pulses: positive: 2+ Abdomen: positive: Non-tender, No organomegaly, Nml bowel sounds, No distention. negative: Tenderness, Guarding, Rebound Back: positive: Nml inspection. negative: CVA tenderness (R), CVA tenderness (L) Skin: positive: Warm, Dry, Skin rash. negative: No rash, Cyanosis, Diaphoresis, Pallor, Decubitus, Laceration (cm) Extremities: positive: Non-tender, Full ROM. negative: Calf tenderness, Joint swelling, Donnell's sign/cords Neurologic/Psychiatric: positive: Oriented x3, Motor nml, Sensation nml, Mood/affect nml. negative: Weakness, Sensory loss, Facial droop, Slurred/abnml speech, Depressed mood/affect Sepsis Event Note (H) - Evaluation Current Stage of Sepsis: Ruled out Conclusion/Plan - Problem List (1) Cellulitis of foot Conclusion/Plan: pt has been on immuno-compromised since he had chemotherapy. WBC is 3.6 today. pt had cellulitis on dorsum of left foot with edema, swelling, erythema, warm. Location is closely to the first infection, the second toe of left foot. Pt report he took Clindamycin 300mg Qid. It appear the antibiotics could not prevent he had second infection. The swelling seems no fluid collection. Pt also had good dorsalis pedis pause. antibiotics Vancomycin and Zosyn rise the foot blood culture is pending vital monitor (2) Esophageal cancer, stage IV Conclusion/Plan: pt is followup his oncologist Dr. Hendrix, advise closely monitor (3) HTN (hypertension) Conclusion/Plan: stable, reconcile home meds Metoprolol Qualifiers: Hypertension type: essential hypertension Qualified Code(s): I10 - Essential (primary) hypertension (4) Hypothyroidism Conclusion/Plan: check TSH, stable, reconcile home synthyroxion (5) Depression Conclusion/Plan: stable, reconcile home Wellbutrin (6) GERD (gastroesophageal reflux disease) Conclusion/Plan: stable, start on pepcid (7) Full code status Conclusion/Plan: pt request full code - Lab Results Fish Bones: 02/23/19 06:26 02/23/19 06:26 Core Measures - Anticipated LOS I expect patient to be DC'd or transferred within 96 hours.: Yes - DVT/VTE - Prophylaxis VTE/DVT Device ordered at admit?: Yes VTE/DVT Prophylaxis med ordered at admit?: Yes
[2019-02-22] MEDS: SODIUM CHLORIDE FLUSH 0.9% 10 ML SYRINGE IVP PRN (19:12)
[2019-02-22] MEDS: PIPERACILLIN/TAZOBACTAM 3.375 GM in SODIUM CHLORIDE 0.9% MINIBAG 100 ML IV SCH ×2 (19:12→23:59)
[2019-02-22] MEDS: SODIUM CHLORIDE 0.9% 1,000 ML IV SCH (19:12)
[2019-02-22] MEDS: oxyCODONE 5 MG TABLET PO PRN ×2 (19:22→23:58)
[2019-02-22] MEDS: FAMOTIDINE 20 MG TABLET PO SCH (21:38)
[2019-02-22] MEDS: buPROPion SR 150 MG TABLET PO SCH (21:38)
[2019-02-22] MEDS: ZOLPIDEM 5 MG TABLET PO PRN (23:59)
[2019-02-23] MEDS: SODIUM CHLORIDE FLUSH 0.9% 10 ML SYRINGE IVP SCH ×4 (02:26→18:19)
[2019-02-23] MEDS: VANCOMYCIN INJ 1 GM in SODIUM CHLORIDE 0.9% 250 ML IV SCH ×2 (03:55→14:50)
[2019-02-23] MEDS: PIPERACILLIN/TAZOBACTAM 3.375 GM in SODIUM CHLORIDE 0.9% MINIBAG 100 ML IV SCH ×3 (06:20→18:19)
[2019-02-23 06:33] LABS: BASOPHILS # (AUTO) 0.1 10^3/uL (0.0-0.1); BASOPHILS % (AUTO) 3.6 %; EOSINOPHILS # (AUTO) 0.2 10^3/uL (0.0-0.7); EOSINOPHILS % (AUTO) 8.1 %; LYMPHOCYTES # (AUTO) 1.1 10^3/uL (1.5-3.5); LYMPHOCYTES % (AUTO) 39.8 %; MEAN CORPUSCULAR HEMOGLOBIN 33.8 pg (27.0-31.0); MEAN CORPUSCULAR HGB CONC 34.7 g/dL (32.0-36.0); MEAN CORPUSCULAR VOLUME 97.5 fL (80.0-94.0); MEAN PLATELET VOLUME 7.8 fL (7.4-11.4); MONOCYTES # (AUTO) 0.6 10^3/uL (0.0-1.0); MONOCYTES % (AUTO) 22.4 %; NEUTROPHILS # (AUTO) 0.7 10^3/uL (1.5-6.6); NEUTROPHILS % (AUTO) 26.1 %; PLT - PLATELET COUNT 186 10^3/uL (130-450); RED BLOOD COUNT 2.96 10^6/uL (4.70-6.10); RED CELL DISTRIBUTION WIDTH 13.7 % (12.0-15.0); WHITE BLOOD COUNT 2.8 x10^3/uL (4.8-10.8)
[2019-02-23 06:43] LABS: CALCIUM 8.1 mg/dL (8.5-10.3); MAGNESIUM 1.5 mg/dL (1.7-2.8)
[2019-02-23] MEDS: LEVOTHYROXINE 75 MCG TABLET PO SCH (06:54)
[2019-02-23] MEDS: SODIUM CHLORIDE 0.9% 1,000 ML IV SCH (07:32)
[2019-02-23] MEDS ORDERED: LIDOCAINE/PRILOCAINE 2.5% CREAM 5 GM TUBE TOP PRN (07:41)
[2019-02-23] MEDS: oxyCODONE 5 MG TABLET PO PRN ×3 (08:50→21:05)
[2019-02-23] MEDS: ACETAMINOPHEN 325 MG TABLET PO PRN (08:51)
[2019-02-23] MEDS: METOPROLOL SUCCINATE 50 MG TABLET PO SCH (08:54)
[2019-02-23] MEDS: buPROPion SR 150 MG TABLET PO SCH ×2 (08:56→21:05)
[2019-02-23] MEDS: FAMOTIDINE 20 MG TABLET PO SCH ×2 (08:57→21:05)
[2019-02-23] MEDS: ENOXAPARIN 40 MG/0.4 ML SYRINGE SUBQ SCH (08:59)
[2019-02-23] MEDS: SACCHAROMYCES BOULARDII 250 MG CAPSULE PO SCH ×2 (08:59→16:51)
[2019-02-23] MEDS: POLYETHYLENE GLYCOL 3350 17 GM PACKET PO SCH (08:59)
[2019-02-23] MEDS: SODIUM CHLORIDE FLUSH 0.9% 10 ML SYRINGE IVP PRN (12:04)
--- NOTE | 2019-02-23 13:53 | PROVIDER PROGRESS NOTE ---
Subjective - Prog Note Date Prog Note Date: 02/23/19 - Subjective Pt reports feeling: Improved Subjective: pt left foot infection is improving. pt report the erythema is reduced. pain is reduced. But pt still present swell. pt denies fever, chill, chest pain, cough, shortness of breath. Current Medications - Current Medications Current Medications: Active Medications Acetaminophen (Tylenol) 650 mg PO Q4HR PRN PRN Reason: Pain 1 to 4 Last Admin: 02/23/19 08:51 Dose: 650 mg Bupropion HCl (Wellbutrin Sr) 150 mg PO BID ON LICENSE OF [facility] Last Admin: 02/23/19 08:56 Dose: 150 mg Enoxaparin Sodium (Lovenox) 40 mg SUBQ DAILY ON LICENSE OF [facility] Last Admin: 02/23/19 08:59 Dose: 40 mg Famotidine (Pepcid) 20 mg PO BID ON LICENSE OF [facility] Last Admin: 02/23/19 08:57 Dose: 20 mg Heparin Sodium (Beef Lung) () 30 - 50 unit IVP PRN PRN PRN Reason: Port Protocol (<24 hours) Last Admin: 02/23/19 11:00 Dose: 30 unit Sodium Chloride (Normal Saline 0.9%) 1,000 mls @ 100 mls/hr IV .Q10H ON LICENSE OF [facility] Stop: 02/23/19 13:59 Last Admin: 02/23/19 07:32 Dose: 100 mls/hr Piperacillin Sod/Tazobactam (Sod 3.375 gm/ Sodium Chloride) 100 mls @ 200 mls/hr IV Q6H ON LICENSE OF [facility] Last Infusion: 02/23/19 12:30 Dose: Infused Vancomycin HCl 1 gm/ Sodium (Chloride) 250 mls @ 167 mls/hr IV Q12H ON LICENSE OF [facility] Last Infusion: 02/23/19 05:38 Dose: Infused Levothyroxine Sodium (Synthroid) 150 mcg PO QDAC ON LICENSE OF [facility] Last Admin: 02/23/19 06:54 Dose: 150 mcg Lidocaine/Prilocaine (Emla 2.5% Cream) 1 applic TOP PRN PRN PRN Reason: Analgesia Lorazepam (Ativan) 0.5 mg PO Q6H PRN PRN Reason: Nausea / Vomiting Metoprolol Succinate (Toprol Xl) 25 mg PO DAILY ON LICENSE OF [facility] Last Admin: 02/23/19 08:54 Dose: 25 mg Morphine Sulfate (Morphine) 2 mg IVP Q2H PRN PRN Reason: Pain 8 to 10 Ondansetron HCl (Zofran Inj) 4 mg IVP Q6HR PRN PRN Reason: Nausea / Vomiting Oxycodone HCl (Roxicodone) 5 mg PO Q4HR PRN PRN Reason: Pain 8 to 10 Last Admin: 02/23/19 08:50 Dose: 5 mg Polyethylene Glycol (Miralax) 17 gm PO DAILY ON LICENSE OF [facility] Last Admin: 02/23/19 08:59 Dose: Not Given Saccharomyces Boulardii (Florastor) 250 mg PO BIDWM ON LICENSE OF [facility] Last Admin: 02/23/19 08:59 Dose: 250 mg Sodium Chloride (Normal Saline Flush 0.9%) 10 ml IVP PRN PRN PRN Reason: NEEDED PER PROVIDER ORDERS Last Admin: 02/23/19 12:04 Dose: 10 ml Sodium Chloride (Normal Saline Flush 0.9%) 10 ml IVP 0100,0900,1700 ON LICENSE OF [facility] Last Admin: 02/23/19 10:58 Dose: 10 ml Zolpidem Tartrate (Ambien) 5 mg PO QPM PRN PRN Reason: Insomnia Last Admin: 02/22/19 23:59 Dose: 5 mg Levothyroxine Sodium 150 mcg PO DAILY 12/20/18 Pantoprazole [Protonix] 40 mg PO QDAC 12/20/18 buPROPion [Wellbutrin Sr] 150 mg PO BID 12/20/18 LORazepam [Lorazepam] 0.5 mg PO Q6H PRN 01/08/19 Metoprolol Succinate [Toprol Xl] 25 mg PO DAILY 02/15/19 Objective - Vital Signs/Intake & Output Reviewed Vital Signs: Yes Vital Signs: Vital Signs x48h Temp Pulse Resp BP Pulse Ox 02/23/19 12:00 36.8 C 64 15 135/73 H 100 02/23/19 07:17 36.8 C 65 16 118/69 99 Intake & Output: Intake & Output 02/20/19 02/21/19 02/22/19 02/23/19 23:59 23:59 23:59 23:59 Intake Total 30 2141.666 2320.000 Balance 30 2141.666 2320.000 - Objective General Appearance: positive: No acute distress, Alert. negative: Lethargic Eyes Bilateral: positive: Normal inspection, PERRL, No lid inflammation, Conjunctivae nml ENT: positive: ENT inspection nml, Pharynx nml, No signs of dehydration. negative: Purulent nasal drainage, Pharyngeal erythema, Oral lesions Neck: positive: Nml inspection, Thyroid nml, No JVD, Trachea midline. negative: Thyromegaly, Lymphadenopathy (R), Lymphadenopathy (L), Stiff neck, Swelling/bruising, Tracheal deviation Respiratory: positive: Chest non-tender, No respiratory distress, Breath sounds nml. negative: Wheezes, Rales, Rhonchi Cardiovascular: positive: Regular rate & rhythm, No murmur, No gallop. negative: Irregularly irregular, Extrasystoles, Tachycardia, Bradycardia, JVD present, Systolic murmur, Diastolic murmur Peripheral Pulses: 2+ Radial (R), 2+ Radial (L), 2+ Dorsalis pedis (R), 2+ Dorsalis pedis (L) Abdomen: positive: Non-tender, No organomegaly, Nml bowel sounds, No distention. negative: Tenderness, Guarding, Rebound Back: positive: Nml inspection. negative: CVA tenderness (R), CVA tenderness (L) Skin: positive: Color nml, No rash, Warm, Dry. negative: Cyanosis, Diaphoresis, Pallor Extremities: positive: Full ROM. negative: Calf tenderness, Joint swelling, Donnell's sign/cords Neurologic/Psychiatric: positive: Oriented x3, Motor nml, Sensation nml, Mood/affect nml. negative: Weakness, Sensory loss, Facial droop, Slurred/abnml speech, Depressed mood/affect - Lab Results Fish Bones: 02/24/19 05:30 02/24/19 05:30 Other Labs: Lab Results x24hrs 02/23/19 02/23/19 02/23/19 Range/Units 06:26 06:26 06:26 WBC 2.8 L (4.8-10.8) x10^3/uL RBC 2.96 L (4.70-6.10) 10^6/uL Hgb 10.0 L (14.0-18.0) g/dL Hct 28.8 L (42.0-52.0) % MCV 97.5 H (80.0-94.0) fL MCH 33.8 H (27.0-31.0) pg MCHC 34.7 (32.0-36.0) g/dL RDW 13.7 (12.0-15.0) % Plt Count 186 (130-450) 10^3/uL MPV 7.8 (7.4-11.4) fL Neut # (Auto) 0.7 L (1.5-6.6) 10^3/uL Lymph # (Auto) 1.1 L (1.5-3.5) 10^3/uL [place] # (Auto) 0.6 (0.0-1.0) 10^3/uL Eos # (Auto) 0.2 (0.0-0.7) 10^3/uL Baso # (Auto) 0.1 (0.0-0.1) 10^3/uL Absolute Nucleated RBC 0.00 x10^3/uL Nucleated RBC % 0.1 /100WBC ESR (0-20) mm/Hr Sodium 139 (135-145) mmol/L Potassium 3.7 (3.5-5.0) mmol/L Chloride 109 (101-111) mmol/L Carbon Dioxide 25 (21-32) mmol/L Anion Gap 5.0 L (6-13) BUN 14 (6-20) mg/dL Creatinine 1.0 (0.6-1.2) mg/dL Estimated GFR (MDRD) 74 L (>89) Glucose 80 (70-100) mg/dL Lactic Acid (0.5-2.2) mmol/L Calcium 8.1 L (8.5-10.3) mg/dL Magnesium 1.5 L (1.7-2.8) mg/dL Total Bilirubin (0.2-1.0) mg/dL AST (10-42) IU/L ALT (10-60) IU/L Alkaline Phosphatase (42-121) IU/L Total Protein (6.7-8.2) g/dL Albumin (3.2-5.5) g/dL Globulin (2.1-4.2) g/dL Albumin/Globulin Ratio (1.0-2.2) Lipase (22-51) U/L TSH 3.28 (0.34-5.60) uIU/mL 02/22/19 02/22/19 02/22/19 Range/Units 18:43 15:26 15:26 WBC (4.8-10.8) x10^3/uL RBC (4.70-6.10) 10^6/uL Hgb (14.0-18.0) g/dL Hct (42.0-52.0) % MCV (80.0-94.0) fL MCH (27.0-31.0) pg MCHC (32.0-36.0) g/dL RDW (12.0-15.0) % Plt Count (130-450) 10^3/uL MPV (7.4-11.4) fL Neut # (Auto) (1.5-6.6) 10^3/uL Lymph # (Auto) (1.5-3.5) 10^3/uL [place] # (Auto) (0.0-1.0) 10^3/uL Eos # (Auto) (0.0-0.7) 10^3/uL Baso # (Auto) (0.0-0.1) 10^3/uL Absolute Nucleated RBC x10^3/uL Nucleated RBC % /100WBC ESR 61 H (0-20) mm/Hr Sodium 140 (135-145) mmol/L Potassium 3.6 (3.5-5.0) mmol/L Chloride 108 (101-111) mmol/L Carbon Dioxide 25 (21-32) mmol/L Anion Gap 7.0 (6-13) BUN 12 (6-20) mg/dL Creatinine 0.9 (0.6-1.2) mg/dL Estimated GFR (MDRD) 84 L (>89) Glucose 89 (70-100) mg/dL Lactic Acid 0.7 (0.5-2.2) mmol/L Calcium 8.5 (8.5-10.3) mg/dL Magnesium (1.7-2.8) mg/dL Total Bilirubin 0.6 (0.2-1.0) mg/dL AST 37 (10-42) IU/L ALT 49 (10-60) IU/L Alkaline Phosphatase 67 (42-121) IU/L Total Protein 5.7 L (6.7-8.2) g/dL Albumin 2.9 L (3.2-5.5) g/dL Globulin 2.8 (2.1-4.2) g/dL Albumin/Globulin Ratio 1.0 (1.0-2.2) Lipase 53 H (22-51) U/L TSH (0.34-5.60) uIU/mL 02/22/19 Range/Units 15:26 WBC 3.6 L (4.8-10.8) x10^3/uL RBC 3.22 L (4.70-6.10) 10^6/uL Hgb 10.6 L (14.0-18.0) g/dL Hct 31.2 L (42.0-52.0) % MCV 97.0 H (80.0-94.0) fL MCH 32.9 H (27.0-31.0) pg MCHC 33.9 (32.0-36.0) g/dL RDW 13.3 (12.0-15.0) % Plt Count 207 (130-450) 10^3/uL MPV 7.7 (7.4-11.4) fL Neut # (Auto) 1.2 L (1.5-6.6) 10^3/uL Lymph # (Auto) 1.2 L (1.5-3.5) 10^3/uL [place] # (Auto) 0.9 (0.0-1.0) 10^3/uL Eos # (Auto) 0.2 (0.0-0.7) 10^3/uL Baso # (Auto) 0.1 (0.0-0.1) 10^3/uL Absolute Nucleated RBC 0.00 x10^3/uL Nucleated RBC % 0.1 /100WBC ESR (0-20) mm/Hr Sodium (135-145) mmol/L Potassium (3.5-5.0) mmol/L Chloride (101-111) mmol/L Carbon Dioxide (21-32) mmol/L Anion Gap (6-13) BUN (6-20) mg/dL Creatinine (0.6-1.2) mg/dL Estimated GFR (MDRD) (>89) Glucose (70-100) mg/dL Lactic Acid (0.5-2.2) mmol/L Calcium (8.5-10.3) mg/dL Magnesium (1.7-2.8) mg/dL Total Bilirubin (0.2-1.0) mg/dL AST (10-42) IU/L ALT (10-60) IU/L Alkaline Phosphatase (42-121) IU/L Total Protein (6.7-8.2) g/dL Albumin (3.2-5.5) g/dL Globulin (2.1-4.2) g/dL Albumin/Globulin Ratio (1.0-2.2) Lipase (22-51) U/L TSH (0.34-5.60) uIU/mL ABX Reporting Has patient been on IV antibiotics over the past 48 hours?: Yes Sepsis Event Note (H) - Evaluation Current Stage of Sepsis: Ruled out Assessment/Plan - Problem List (1) Cellulitis of foot Impression: 02/23 improved. erythema is reduced. swelling is slight reduced. will order US to r/o DVT continue antibiotics continue rise the foot blood culture is negative preliminary continue vital and lab monitor pt has been on immuno-compromised since he had chemotherapy. WBC is 3.6 today. pt had cellulitis on dorsum of left foot with edema, swelling, erythema, warm. Location is closely to the first infection, the second toe of left foot. Pt r eport he took Clindamycin 300mg Qid. It appear the antibiotics could not prevent he had second infection. The swelling seems no fluid collection. Pt also had good dorsalis pedis pause. antibiotics Vancomycin and Zosyn rise the foot blood culture is pending vital monitor (2) Esophageal cancer, stage IV Conclusion/Plan: pt is followup his oncologist Dr. Hendrix, advise closely monitor (3) HTN (hypertension) Conclusion/Plan: stable, reconcile home meds Metoprolol (4) Hypothyroidism Conclusion/Plan: 4/6 TSH is normal, stable. check TSH, stable, reconcile home synthyroxion (5) Depression Conclusion/Plan: stable, reconcile home Wellbutrin (6) GERD (gastroesophageal reflux disease) Conclusion/Plan: stable, start on pepcid (3) HTN (hypertension) Qualifiers: Hypertension type: essential hypertension Qualified Code(s): I10 - Essential (primary) hypertension
[2019-02-23] MEDS: ZOLPIDEM 5 MG TABLET PO PRN (22:13)
--- NOTE | 2019-02-23 23:05 | Ultrasound Report ---
Reason: fluid collection, DVT Procedure Date: 02/23/2019 Accession Number: [id number] / [id number] Procedure: US - Duplex Ext Veins Left CPT Code: FULL RESULT: EXAM: LEFT LOWER EXTREMITY VENOUS ULTRASOUND EXAM DATE: 02/23/2019 10:00 PM. CLINICAL HISTORY: Fluid collection, DVT. COMPARISON: None. TECHNIQUE: Real-time sonographic vascular imaging was performed by the psychiatry physician through the lower extremity utilizing both color-flow and Doppler spectral analysis. Multiple dermatology sales representative static images were saved for review. FINDINGS: Common Femoral Vein (CFV): Normal. CFV-GSV Junction: Normal. Profunda Femoral Vein (PFV): Normal. Femoral Vein (FV) Prox: Normal. Femoral Vein (FV) Mid: Normal. Femoral Vein (FV) Dist: Normal. Popliteal Vein: Normal. Posterior Tibial Veins: Normal. Peroneal Veins: Normal. Contralateral Side CFV: Normal. Other: None. IMPRESSION: No evidence for deep venous thrombosis in the visualized left lower extremity. RADIA
[2019-02-24] MEDS: PIPERACILLIN/TAZOBACTAM 3.375 GM in SODIUM CHLORIDE 0.9% MINIBAG 100 ML IV SCH ×5 (00:50→23:43)
[2019-02-24] MEDS: SODIUM CHLORIDE FLUSH 0.9% 10 ML SYRINGE IVP SCH ×4 (01:05→23:43)
[2019-02-24] MEDS: VANCOMYCIN INJ 1 GM in SODIUM CHLORIDE 0.9% 250 ML IV SCH ×2 (02:33→15:58)
[2019-02-24] MEDS: LEVOTHYROXINE 75 MCG TABLET PO SCH (05:38)
[2019-02-24] MEDS: oxyCODONE 5 MG TABLET PO PRN ×2 (05:40→12:01)
[2019-02-24 05:53] LABS: BASOPHILS # (AUTO) 0.1 10^3/uL (0.0-0.1); BASOPHILS % (AUTO) 3.4 %; EOSINOPHILS # (AUTO) 0.3 10^3/uL (0.0-0.7); EOSINOPHILS % (AUTO) 7.9 %; HGB - HEMOGLOBIN 10.5 g/dL (14.0-18.0); LYMPHOCYTES # (AUTO) 1.5 10^3/uL (1.5-3.5); LYMPHOCYTES % (AUTO) 41.7 %; MEAN CORPUSCULAR HGB CONC 33.6 g/dL (32.0-36.0); MEAN CORPUSCULAR VOLUME 98.3 fL (80.0-94.0); MONOCYTES # (AUTO) 0.7 10^3/uL (0.0-1.0); NEUTROPHILS # (AUTO) 0.9 10^3/uL (1.5-6.6); PLT - PLATELET COUNT 216 10^3/uL (130-450); RED BLOOD COUNT 3.19 10^6/uL (4.70-6.10); RED CELL DISTRIBUTION WIDTH 13.7 % (12.0-15.0); WHITE BLOOD COUNT 3.5 x10^3/uL (4.8-10.8)
[2019-02-24 06:03] LABS: CALCIUM 8.4 mg/dL (8.5-10.3); CREATININE 1.1 mg/dL (0.6-1.2)
[2019-02-24] MEDS: ACETAMINOPHEN 325 MG TABLET PO PRN (08:09)
[2019-02-24] MEDS: SACCHAROMYCES BOULARDII 250 MG CAPSULE PO SCH ×2 (08:09→18:20)
[2019-02-24] MEDS: MORPHINE 2 MG/ML SYRINGE IVP PRN ×2 (08:18→20:40)
[2019-02-24] MEDS: buPROPion SR 150 MG TABLET PO SCH ×2 (08:22→20:40)
[2019-02-24] MEDS: FAMOTIDINE 20 MG TABLET PO SCH ×2 (08:22→20:40)
[2019-02-24] MEDS: POLYETHYLENE GLYCOL 3350 17 GM PACKET PO SCH (08:24)
[2019-02-24] MEDS: METOPROLOL SUCCINATE 50 MG TABLET PO SCH (08:36)
[2019-02-24] MEDS ORDERED: MAGNESIUM SULFATE 1 GM in SODIUM CHLORIDE 0.9% 50 ML IV ONE (09:00)
[2019-02-24] MEDS ORDERED: IOVERSOL 320 100 ML VIAL IVP ONE ×2 (10:26→11:01)
[2019-02-24] MEDS: ENOXAPARIN 40 MG/0.4 ML SYRINGE SUBQ SCH (11:55)
--- NOTE | 2019-02-24 14:10 | CT Report ---
Reason: continue swelling and pain, fluid collection Procedure Date: 02/24/2019 Accession Number: [id number] / [id number] Procedure: CT - LOWER EXTREMITY W - LT CPT Code: FULL RESULT: EXAM: LEFT LOWER EXTREMITY CT WITH CONTRAST EXAM DATE: 02/24/2019 10:59 AM. CLINICAL HISTORY: Continued swelling and pain, fluid collection. COMPARISON: None. TECHNIQUE: Thin-section axial images were acquired of the lower extremity from the distal tibia and fibula to the toes after administration of intravenous contrast. IV contrast: 100 mL Optiray 320. Post-processing: Coronal and sagittal reformats. Other: None. In accordance with CT protocol optimization, one or more of the following dose reduction techniques were utilized for this exam: automated exposure control, adjustment of mA and/or KV based on patient size, or use of iterative reconstructive technique. FINDINGS: Bones: No fracture or bone lesion. Joints: Limited evaluation of alignment on [id number] imaging. Minimal degenerative changes at the tibiotalar joint with small joint effusion. Minimal degenerative changes at the subtalar joint and mid foot. Mild degenerative changes first metatarsophalangeal joint with suggestion of mild hallux valgus. Suggestion of moderate to large joint effusion at the second metatarsophalangeal joint. Musculature: No gross fatty atrophy. Limited evaluation for muscle edema. Limited evaluation of the tendons. Other: Mild circumferential subcutaneous edema throughout the visualized distal lower leg. Moderate subcutaneous edema at the hindfoot and extending over the dorsal and lateral aspects mid foot and forefoot. No focal rim-enhancing fluid collection. IMPRESSION: 1. Moderate subcutaneous edema versus cellulitis. 2. No drainable fluid collection/abscess. 3. No gross erosive changes to suggest osteomyelitis. Evaluation for osteomyelitis significantly limited on CT. If clinical concern for deep infection, MRI with contrast recommended if patient is able. 4. Moderate to large joint effusion of the second metatarsophalangeal joint, nonspecific. 5. Minimal to mild degenerative changes. RADIA
[2019-02-24 14:55] LABS: VANCOMYCIN,TROUGH 14.6 ug/mL (10.0-20.0)
--- NOTE | 2019-02-24 15:14 | PROVIDER PROGRESS NOTE ---
Subjective - Prog Note Date Prog Note Date: 02/24/19 - Subjective Pt reports feeling: Improved Subjective: pt report he still have significant pain on left foot infection. erythema is resolved. but there is still swelling/edema. order of CT to r/o any fluid collection or bony infection. pt denies fever, chill. denies cough, SOB, chest pain. Current Medications - Current Medications Current Medications: Active Medications Acetaminophen (Tylenol) 650 mg PO Q4HR PRN PRN Reason: Pain 1 to 4 Last Admin: 02/24/19 08:09 Dose: 650 mg Bupropion HCl (Wellbutrin Sr) 150 mg PO BID [facility] Last Admin: 02/24/19 08:22 Dose: 150 mg Enoxaparin Sodium (Lovenox) 40 mg SUBQ DAILY [facility] Last Admin: 02/24/19 11:55 Dose: 40 mg Famotidine (Pepcid) 20 mg PO BID [facility] Last Admin: 02/24/19 08:22 Dose: 20 mg Heparin Sodium (Beef Lung) () 30 - 50 unit IVP PRN PRN PRN Reason: Port Protocol (<24 hours) Last Admin: 02/23/19 11:00 Dose: 30 unit Piperacillin Sod/Tazobactam (Sod 3.375 gm/ Sodium Chloride) 100 mls @ 200 mls/hr IV Q6H [facility] Last Admin: 02/24/19 11:52 Dose: 200 mls/hr Vancomycin HCl 1 gm/ Sodium (Chloride) 250 mls @ 167 mls/hr IV Q12H [facility] Last Infusion: 02/24/19 04:24 Dose: Infused Levothyroxine Sodium (Synthroid) 150 mcg PO QDAC [facility] Last Admin: 02/24/19 05:38 Dose: 150 mcg Lidocaine/Prilocaine (Emla 2.5% Cream) 1 applic TOP PRN PRN PRN Reason: Analgesia Lorazepam (Ativan) 0.5 mg PO Q6H PRN PRN Reason: Nausea / Vomiting Metoprolol Succinate (Toprol Xl) 25 mg PO DAILY [facility] Last Admin: 02/24/19 08:36 Dose: 25 mg Morphine Sulfate (Morphine) 2 mg IVP Q2H PRN PRN Reason: Pain 8 to 10 Last Admin: 02/24/19 08:18 Dose: 2 mg Ondansetron HCl (Zofran Inj) 4 mg IVP Q6HR PRN PRN Reason: Nausea / Vomiting Oxycodone HCl (Roxicodone) 10 mg PO Q4HR PRN PRN Reason: Pain 8 to 10 Last Admin: 02/24/19 12:01 Dose: 10 mg Polyethylene Glycol (Miralax) 17 gm PO DAILY [facility] Last Admin: 02/24/19 08:24 Dose: Not Given Saccharomyces Boulardii (Florastor) 250 mg PO BIDWM [facility] Last Admin: 02/24/19 08:09 Dose: 250 mg Sodium Chloride (Normal Saline Flush 0.9%) 10 ml IVP PRN PRN PRN Reason: NEEDED PER PROVIDER ORDERS Last Admin: 02/23/19 12:04 Dose: 10 ml Sodium Chloride (Normal Saline Flush 0.9%) 10 ml IVP 0100,0900,1700 [facility] Last Admin: 02/24/19 07:38 Dose: 10 ml Zolpidem Tartrate (Ambien) 5 mg PO QPM PRN PRN Reason: Insomnia Last Admin: 02/23/19 22:13 Dose: 5 mg Levothyroxine Sodium 150 mcg PO DAILY 12/20/18 Pantoprazole [Protonix] 40 mg PO QDAC 12/20/18 buPROPion [Wellbutrin Sr] 150 mg PO BID 12/20/18 LORazepam [Lorazepam] 0.5 mg PO Q6H PRN 01/08/19 Metoprolol Succinate [Toprol Xl] 25 mg PO DAILY 02/15/19 Objective - Vital Signs/Intake & Output Reviewed Vital Signs: Yes Vital Signs: Vital Signs x48h Temp Pulse Resp BP Pulse Ox 02/24/19 11:40 36.5 C 66 18 115/65 98 02/24/19 07:53 36.8 C 72 18 125/64 97 Intake & Output: Intake & Output 02/21/19 02/22/19 02/23/19 02/24/19 23:59 23:59 23:59 23:59 Intake Total 2141.666 4362.000 2602 Output Total 0 Balance 2141.666 4362.000 2602 - Objective General Appearance: positive: No acute distress, Alert. negative: Lethargic Eyes Bilateral: positive: Normal inspection, No lid inflammation, Conjunctivae nml ENT: positive: ENT inspection nml, Pharynx nml, No signs of dehydration. negative: Purulent nasal drainage, Pharyngeal erythema, Oral lesions Neck: positive: Nml inspection, Thyroid nml, No JVD, Trachea midline. negative: Thyromegaly, Lymphadenopathy (R), Lymphadenopathy (L), Stiff neck, Swelling/bruising, Tracheal deviation Respiratory: positive: Chest non-tender, No respiratory distress, Breath sounds nml. negative: Wheezes, Rales, Rhonchi Cardiovascular: positive: Regular rate & rhythm, No murmur, No gallop. neg ative: Irregularly irregular, Extrasystoles, Tachycardia, Bradycardia, JVD present, Systolic murmur, Diastolic murmur Peripheral Pulses: 2+ Radial (R), 2+ Radial (L), 2+ Dorsalis pedis (R), 2+ Dorsalis pedis (L) Abdomen: positive: Non-tender, No organomegaly, Nml bowel sounds, No distention. negative: Tenderness, Guarding, Rebound Back: positive: Nml inspection. negative: CVA tenderness (R), CVA tenderness (L) Skin: positive: Color nml, No rash, Warm, Dry. negative: Cyanosis, Diaphoresis, Pallor Extremities: positive: Full ROM. negative: Calf tenderness, Joint swelling, Donnell's sign/cords Neurologic/Psychiatric: positive: Oriented x3, Motor nml, Sensation nml, Mood/affect nml. negative: Weakness, Sensory loss, Facial droop, Slurred/abnml speech, Depressed mood/affect - Lab Results Fish Bones: 02/24/19 05:30 02/24/19 05:30 Other Labs: Lab Results x24hrs 02/24/19 02/24/19 02/24/19 Range/Units 14:40 05:30 05:30 WBC 3.5 L (4.8-10.8) x10^3/uL RBC 3.19 L (4.70-6.10) 10^6/uL Hgb 10.5 L (14.0-18.0) g/dL Hct 31.4 L (42.0-52.0) % MCV 98.3 H (80.0-94.0) fL MCH 33.0 H (27.0-31.0) pg MCHC 33.6 (32.0-36.0) g/dL RDW 13.7 (12.0-15.0) % Plt Count 216 (130-450) 10^3/uL MPV 8.0 (7.4-11.4) fL Neut # (Auto) 0.9 L (1.5-6.6) 10^3/uL Lymph # (Auto) 1.5 (1.5-3.5) 10^3/uL [place] # (Auto) 0.7 (0.0-1.0) 10^3/uL Eos # (Auto) 0.3 (0.0-0.7) 10^3/uL Baso # (Auto) 0.1 (0.0-0.1) 10^3/uL Absolute Nucleated RBC 0.00 x10^3/uL Nucleated RBC % 0.0 /100WBC Sodium 142 (135-145) mmol/L Potassium 3.8 (3.5-5.0) mmol/L Chloride 107 (101-111) mmol/L Carbon Dioxide 26 (21-32) mmol/L Anion Gap 9.0 (6-13) BUN 10 (6-20) mg/dL Creatinine 1.1 (0.6-1.2) mg/dL Estimated GFR (MDRD) 66 L (>89) Glucose 90 (70-100) mg/dL Calcium 8.4 L (8.5-10.3) mg/dL Vancomycin Trough 14.6 (10.0-20.0) ug/mL ABX Reporting Has patient been on IV antibiotics over the past 48 hours?: Yes Sepsis Event Note (H) - Evaluation Current Stage of Sepsis: Ruled out Assessment/Plan - Problem List (1) Cellulitis of foot Impression: 4/7 erythema is resolved. but still edema. slight warmer comparing other foot order CT of foot to r/o abscess or fluid collection, or bony infection continue antibiotics rise of foot 4/6 improved. erythema is reduced. swelling is slight reduced. will order US to r/o DVT continue antibiotics continue rise the foot blood culture is negative preliminary continue vital and lab monitor pt has been on immuno-compromised since he had chemotherapy. WBC is 3.6 today. pt had cellulitis on dorsum of left foot with edema, swelling, erythema, warm. Location is closely to the first infection, the second toe of left foot. Pt report he took Clindamycin 300mg Qid. It appear the antibiotics could not prevent he had second infection. The swelling seems no fluid collection. Pt also had good dorsalis pedis pause. antibiotics Vancomycin and Zosyn rise the foot blood culture is pending vital monitor (2) Esophageal cancer, stage IV Conclusion/Plan: pt is followup his oncologist Dr. Hendrix, advise closely monitor (3) HTN (hypertension) Conclusion/Plan: stable, reconcile home meds Metoprolol (4) Hypothyroidism Conclusion/Plan: 02/23 TSH is normal, stable. check TSH, stable, reconcile home synthyroxion (5) Depression Conclusion/Plan: stable, reconcile home Wellbutrin (6) GERD (gastroesophageal reflux disease) Conclusion/Plan: stable, start on pepcid (3) HTN (hypertension) Qualifiers: Hypertension type: essential hypertension Qualified Code(s): I10 - Essential (primary) hypertension (3) HTN (hypertension) Qualifiers: Hypertension type: essential hypertension Qualified Code(s): I10 - Essential (primary) hypertension
[2019-02-24] MEDS: ZOLPIDEM 5 MG TABLET PO PRN (23:38)
[2019-02-25] MEDS: MORPHINE 2 MG/ML SYRINGE IVP PRN ×3 (01:22→23:48)
[2019-02-25] MEDS: oxyCODONE 5 MG TABLET PO PRN ×3 (02:44→20:46)
[2019-02-25] MEDS: VANCOMYCIN INJ 1 GM in SODIUM CHLORIDE 0.9% 250 ML IV SCH ×2 (02:49→14:04)
[2019-02-25 05:31] LABS: BASOPHILS # (AUTO) 0.1 10^3/uL (0.0-0.1); EOSINOPHILS # (AUTO) 0.3 10^3/uL (0.0-0.7); EOSINOPHILS % (AUTO) 7.5 %; HGB - HEMOGLOBIN 9.8 g/dL (14.0-18.0); LYMPHOCYTES # (AUTO) 1.5 10^3/uL (1.5-3.5); LYMPHOCYTES % (AUTO) 36.2 %; MEAN CORPUSCULAR HEMOGLOBIN 33.4 pg (27.0-31.0); MEAN CORPUSCULAR HGB CONC 34.2 g/dL (32.0-36.0); MEAN CORPUSCULAR VOLUME 97.7 fL (80.0-94.0); MEAN PLATELET VOLUME 7.9 fL (7.4-11.4); MONOCYTES # (AUTO) 1.1 10^3/uL (0.0-1.0); MONOCYTES % (AUTO) 26.4 %; NEUTROPHILS # (AUTO) 1.1 10^3/uL (1.5-6.6); NEUTROPHILS % (AUTO) 26.9 %; PLT - PLATELET COUNT 218 10^3/uL (130-450); RED BLOOD COUNT 2.94 10^6/uL (4.70-6.10); RED CELL DISTRIBUTION WIDTH 14.6 % (12.0-15.0); WHITE BLOOD COUNT 4.2 x10^3/uL (4.8-10.8)
[2019-02-25 05:50] LABS: CALCIUM 8.3 mg/dL (8.5-10.3); CREATININE 1.1 mg/dL (0.6-1.2); CRP - C-REACTIVE PROTEIN 4.4 mg/dL (0-1.0); MAGNESIUM 1.6 mg/dL (1.7-2.8)
[2019-02-25] MEDS: LEVOTHYROXINE 75 MCG TABLET PO SCH (06:02)
[2019-02-25] MEDS: PIPERACILLIN/TAZOBACTAM 3.375 GM in SODIUM CHLORIDE 0.9% MINIBAG 100 ML IV SCH ×4 (06:03→23:48)
[2019-02-25] MEDS: buPROPion SR 150 MG TABLET PO SCH ×2 (09:23→20:46)
[2019-02-25] MEDS: MAGNESIUM OXIDE 400 MG TABLET PO SCH (09:23)
[2019-02-25] MEDS: SACCHAROMYCES BOULARDII 250 MG CAPSULE PO SCH ×2 (09:23→18:24)
[2019-02-25] MEDS: ENOXAPARIN 40 MG/0.4 ML SYRINGE SUBQ SCH (09:23)
[2019-02-25] MEDS: METOPROLOL SUCCINATE 50 MG TABLET PO SCH (09:23)
[2019-02-25] MEDS: FAMOTIDINE 20 MG TABLET PO SCH ×2 (09:23→20:46)
[2019-02-25] MEDS: SODIUM CHLORIDE FLUSH 0.9% 10 ML SYRINGE IVP SCH ×3 (09:24→23:48)
[2019-02-25] MEDS: POLYETHYLENE GLYCOL 3350 17 GM PACKET PO SCH (09:24)
--- NOTE | 2019-02-25 11:33 | PROVIDER PROGRESS NOTE ---
Subjective - Prog Note Date Prog Note Date: 02/25/19 - Subjective Pt reports feeling: No change Subjective: pt still present swelling on his dorsum of foot. Dr. brooks saw pt, attempted to aspirate joint fluid and gram staining study. Dr. Brooks recommend pt to have MRI for pt. pt denies fever, chill, cough, chest pain. pt had a good left dorsalis pedis Current Medications - Current Medications Current Medications: Active Medications Acetaminophen (Tylenol) 650 mg PO Q4HR PRN PRN Reason: Pain 1 to 4 Last Admin: 02/24/19 08:09 Dose: 650 mg Bupropion HCl (Wellbutrin Sr) 150 mg PO BID [facility] Last Admin: 02/25/19 09:23 Dose: 150 mg Enoxaparin Sodium (Lovenox) 40 mg SUBQ DAILY [facility] Last Admin: 02/25/19 09:23 Dose: 40 mg Famotidine (Pepcid) 20 mg PO BID [facility] Last Admin: 02/25/19 09:23 Dose: 20 mg Heparin Sodium (Beef Lung) () 30 - 50 unit IVP PRN PRN PRN Reason: Port Protocol (<24 hours) Last Admin: 02/24/19 20:40 Dose: 30 unit Piperacillin Sod/Tazobactam (Sod 3.375 gm/ Sodium Chloride) 100 mls @ 200 mls/hr IV Q6H [facility] Last Infusion: 02/25/19 12:39 Dose: Infused Vancomycin HCl 1 gm/ Sodium (Chloride) 250 mls @ 167 mls/hr IV Q12H [facility] Last Infusion: 02/25/19 04:25 Dose: Infused Levothyroxine Sodium (Synthroid) 150 mcg PO QDAC [facility] Last Admin: 02/25/19 06:02 Dose: 150 mcg Lidocaine/Prilocaine (Emla 2.5% Cream) 1 applic TOP PRN PRN PRN Reason: Analgesia Lorazepam (Ativan) 0.5 mg PO Q6H PRN PRN Reason: Nausea / Vomiting Last Admin: 02/25/19 01:21 Dose: 0.5 mg Magnesium Oxide (Mag Ox) 400 mg PO DAILYWM [facility] Last Admin: 02/25/19 09:23 Dose: 400 mg Metoprolol Succinate (Toprol Xl) 25 mg PO DAILY [facility] Last Admin: 02/25/19 09:23 Dose: 25 mg Morphine Sulfate (Morphine) 2 mg IVP Q2H PRN PRN Reason: Pain 8 to 10 Last Admin: 02/25/19 01:22 Dose: 2 mg Ondansetron HCl (Zofran Inj) 4 mg IVP Q6HR PRN PRN Reason: Nausea / Vomiting Oxycodone HCl (Roxicodone) 10 mg PO Q4HR PRN PRN Reason: Pain 8 to 10 Last Admin: 02/25/19 11:28 Dose: 10 mg Polyethylene Glycol (Miralax) 17 gm PO DAILY [facility] Last Admin: 02/25/19 09:24 Dose: 17 gm Saccharomyces Boulardii (Florastor) 250 mg PO BIDWM [facility] Last Admin: 02/25/19 09:23 Dose: 250 mg Sodium Chloride (Normal Saline Flush 0.9%) 10 ml IVP PRN PRN PRN Reason: NEEDED PER PROVIDER ORDERS Last Admin: 02/23/19 12:04 Dose: 10 ml Sodium Chloride (Normal Saline Flush 0.9%) 10 ml IVP 0100,0900,1700 [facility] Last Admin: 02/25/19 09:24 Dose: Not Given Zolpidem Tartrate (Ambien) 5 mg PO QPM PRN PRN Reason: Insomnia Last Admin: 02/24/19 23:38 Dose: 5 mg Levothyroxine Sodium 150 mcg PO DAILY 12/20/18 Pantoprazole [Protonix] 40 mg PO QDAC 12/20/18 buPROPion [Wellbutrin Sr] 150 mg PO BID 12/20/18 LORazepam [Lorazepam] 0.5 mg PO Q6H PRN 01/08/19 Metoprolol Succinate [Toprol Xl] 25 mg PO DAILY 02/15/19 Objective - Vital Signs/Intake & Output Reviewed Vital Signs: Yes Vital Signs: Vital Signs x48h Temp Pulse Resp BP Pulse Ox 02/25/19 07:47 36.5 C 74 19 132/76 H 98 02/25/19 05:00 36.6 C 71 16 113/65 95 Intake & Output: Intake & Output 02/22/19 02/23/19 02/24/19 02/25/19 23:59 23:59 23:59 23:59 Intake Total 2141.666 4362.000 3592 1210 Output Total 0 800 Balance 2141.666 4362.000 3592 410 - Objective General Appearance: positive: No acute distress, Alert. negative: Lethargic Eyes Bilateral: positive: Normal inspection, PERRL, No lid inflammation, Conjunctivae nml ENT: positive: ENT inspection nml, Pharynx nml, No signs of dehydration. negative: Purulent nasal drainage, Pharyngeal erythema, Oral lesions Neck: positive: Nml inspection, Thyroid nml, No JVD, Trachea midline. negative: Thyromegaly, Lymphadenopathy (R), Lymphadenopathy (L), Stiff neck, Swelling/bruising, Tracheal deviation Respiratory: positive: Chest non-tender, No respiratory distress, Breath sounds nml. negative: Wheezes, Rales, Rhonchi Cardiovascular: positive: Regular rate & rhythm, No murmur, No gallop. negative: Irregularly irregular, Extrasystoles, Tachycardia, Bradycardia, JVD present, Systolic murmur, Diastolic murmur Peripheral Pulses: 2+ Radial (R), 2+ Radial (L), 2+ Dorsalis pedis (R), 2+ Dorsalis pedis (L) Abdomen: positive: Non-tender, No organomegaly, Nml bowel sounds, No distention. negative: Tenderness, Guarding, Rebound Back: positive: Nml inspection. negative: CVA tenderness (R), CVA tenderness (L) Skin: positive: Color nml, Warm, Dry. negative: No rash, Cyanosis, Diaphoresis, Pallor Extremities: negative: Calf tenderness, Joint swelling, Donnell's sign/cords Neurologic/Psychiatric: positive: Oriented x3, Sensation nml, Mood/affect nml. negative: Weakness, Sensory loss, Facial droop, Slurred/abnml speech, Depressed mood/affect - Lab Results Fish Bones: 02/25/19 05:20 02/25/19 05:10 Other Labs: Lab Results x24hrs 02/25/19 02/25/19 02/25/19 Range/Units 05:20 05:10 05:10 WBC 4.2 L (4.8-10.8) x10^3/uL RBC 2.94 L (4.70-6.10) 10^6/uL Hgb 9.8 L (14.0-18.0) g/dL Hct 28.7 L (42.0-52.0) % MCV 97.7 H (80.0-94.0) fL MCH 33.4 H (27.0-31.0) pg MCHC 34.2 (32.0-36.0) g/dL RDW 14.6 (12.0-15.0) % Plt Count 218 (130-450) 10^3/uL MPV 7.9 (7.4-11.4) fL Neut # (Auto) 1.1 L (1.5-6.6) 10^3/uL Lymph # (Auto) 1.5 (1.5-3.5) 10^3/uL [place] # (Auto) 1.1 H (0.0-1.0) 10^3/uL Eos # (Auto) 0.3 (0.0-0.7) 10^3/uL Baso # (Auto) 0.1 (0.0-0.1) 10^3/uL Absolute Nucleated RBC 0.00 x10^3/uL Nucleated RBC % 0.1 /100WBC ESR 62 H (0-20) mm/Hr Sodium 138 (135-145) mmol/L Potassium 3.6 (3.5-5.0) mmol/L Chloride 103 (101-111) mmol/L Carbon Dioxide 27 (21-32) mmol/L Anion Gap 8.0 (6-13) BUN 7 (6-20) mg/dL Creatinine 1.1 (0.6-1.2) mg/dL Estimated GFR (MDRD) 66 L (>89) Glucose 91 (70-100) mg/dL Calcium 8.3 L (8.5-10.3) mg/dL Magnesium 1.6 L (1.7-2.8) mg/dL C-Reactive Protein 4.4 H (0-1.0) mg/dL Last Dose Date Last Dose Time Vancomycin Trough (10.0-20.0) ug/mL 02/24/19 Range/Units 14:40 WBC (4.8-10.8) x10^3/uL RBC (4.70-6.10) 10^6/uL Hgb (14.0-18.0) g/dL Hct (42.0-52.0) % MCV (80.0-94.0) fL MCH (27.0-31.0) pg MCHC (32.0-36.0) g/dL RDW (12.0-15.0) % Plt Count (130-450) 10^3/uL MPV (7.4-11.4) fL Neut # (Auto) (1.5-6.6) 10^3/uL Lymph # (Auto) (1.5-3.5) 10^3/uL [place] # (Auto) (0.0-1.0) 10^3/uL Eos # (Auto) (0.0-0.7) 10^3/uL Baso # (Auto) (0.0-0.1) 10^3/uL Absolute Nucleated RBC x10^3/uL Nucleated RBC % /100WBC ESR (0-20) mm/Hr Sodium (135-145) mmol/L Potassium (3.5-5.0) mmol/L Chloride (101-111) mmol/L Carbon Dioxide (21-32) mmol/L Anion Gap (6-13) BUN (6-20) mg/dL Creatinine (0.6-1.2) mg/dL Estimated GFR (MDRD) (>89) Glucose (70-100) mg/dL Calcium (8.5-10.3) mg/dL Magnesium (1.7-2.8) mg/dL C-Reactive Protein (0-1.0) mg/dL Last Dose Date 02/24/19 Last Dose Time 0424 Vancomycin Trough 14.6 (10.0-20.0) ug/mL ABX Reporting Has patient been on IV antibiotics over the past 48 hours?: Yes Sepsis Event Note (H) - Evaluation Current Stage of Sepsis: Ruled out Assessment/Plan - Problem List (1) Cellulitis of foot Impression: 02/25 CT of left foot reveals moderate to large joint effusion of second metatarsophalangeal consult with Dr. Brooks, followup recommend to have MRI for foot, concern of any bony infection, will followup rise of foot continue antibiotics blood culture is negative preliminary 02/24 erythema is resolved. but still edema. slight warmer comparing other foot order CT of foot to r/o abscess or fluid collection, or bony infection continue antibiotics rise of foot 02/23 improved. erythema is reduced. swelling is slight reduced. will order US to r/o DVT continue antibiotics continue rise the foot blood culture is negative preliminary continue vital and lab monitor pt has been on immuno-compromised since he had chemotherapy. WBC is 3.6 today. pt had cellulitis on dorsum of left foot with edema, swelling, erythema, warm. Location is closely to the first infection, the second toe of left foot. Pt report he took Clindamycin 300mg Qid. It appear the antibiotics could not pr event he had second infection. The swelling seems no fluid collection. Pt also had good dorsalis pedis pause. antibiotics Vancomycin and Zosyn rise the foot blood culture is pending vital monitor (2) Esophageal cancer, stage IV Conclusion/Plan: pt is followup his oncologist Dr. Hendrix, advise closely monitor (3) HTN (hypertension) Conclusion/Plan: stable, reconcile home meds Metoprolol (4) Hypothyroidism Conclusion/Plan: 4/6 TSH is normal, stable. check TSH, stable, reconcile home synthyroxion (5) Depression Conclusion/Plan: stable, reconcile home Wellbutrin (6) GERD (gastroesophageal reflux disease) Conclusion/Plan: stable, start on pepcid (3) HTN (hypertension) Qualifiers: Hypertension type: essential hypertension Qualified Code(s): I10 - Essential (primary) hypertension
--- NOTE | 2019-02-25 14:38 | CONSULTATION NOTE ---
DATE OF SERVICE: 02/25/2019 Physician: Miko Miller MD REQUESTING PHYSICIAN: Shoaib Yao MD, PhD REASON FOR CONSULTATION: Left foot pain and swelling. HISTORY OF PRESENT ILLNESS: Patient is a 68-year-old male who for over a week now has had spontaneou s onset of pain, discoloration, redness, and swelling on the dorsum of the left foot, seemingly cente red at the base of the second and third toes. This problem led the patient to come to the emergency room, and be admitted to the hospital and treated for cellulitis, with discharge from the hospital in the days before he was brought back again and readmitted, his readmission occurring on 02/22/2019. The patient came back to the hospital because of persistent swelling, redness, and pain. The patient does not note any history of trauma to the area. He has not had any lacerations, nor has he had any previous history of such swelling, but he may have had a previous history of gout in his foot over 2 5 years ago and has not had persistent gout issues. The patient is noted to be receiving chemotherap y for treatment of esophageal cancer. The patient's prior medical history, his medications, allergies are all reviewed, as is the patient's prior reports by other providers. PHYSICAL EXAMINATION: The patient is noted to be comfortable in bed. He does not appear to be in an y pain at this time, but he states that his foot is still not better, and he is concerned about its s welling and discoloration. He has not been doing much in the way of weightbearing. The patient's fo ot exam shows some lines that are drawn around the ankle that indicate the extent of cellulitis that seems to be retrieving from that area with wrinkles in the skin and very minimal evidence of present subcutaneous abscess, mass effect, or localization. The patient does not have disruption of skin. T here is tenderness with movement of the second and third toes that seems to be at the MP joints and s ome tenderness with direct palpation in that area only. The patient's neurovascular exam is normal. Does not have lymphadenopathy in his leg or popliteal area. His laboratory results are noncontributory except for a diminished white count, most likely secondary to his chemotherapy, as well as diminished hematocrit. X-rays and CT have been reviewed, and he bazzi s seem to have a mild fluid accumulation in the second and third metatarsophalangeal joint area witho ut any destructive bone change. IMPRESSION: This is a 68-year-old male, receiving chemotherapy, with recent inflammation and redness of his left foot, potentially concerning for possible infection of the foot, and especially concerni ng for involvement of the second and third toe metatarsophalangeal joints. The patient also has a hi story of gout, and he may well be having gout in his foot. With this in mind, I recommended that he undergo aspiration of his joint or attempted aspiration at this time, and the patient gave verbal con sent to proceed. He was prepped with iodine and numbed with a small tuberculin syringe with lidocain e. A 20-gauge needle was advanced into the area of his second metatarsophalangeal joint, and a small amount of blood was withdrawn up the needle, but not really enough to document any type of purulence , infection, or fluid in the joint. With this in mind, I have recommended that the patient undergo f urther testing with MRI scan, to be ordered by the hospitalist, and I will follow his progress along. It is unlikely that he has a septic joint, given that he did not have purulent involvement of the j oint itself. TD: 02/25/2019 14:16
[2019-02-25] MEDS ORDERED: GADOBUTROL 7.5 MMOL/7.5 ML VIAL ONE (19:43)
[2019-02-25] MEDS ORDERED: GADOBUTROL 7.5 MMOL/7.5 ML VIAL IVP ONE (20:03)
--- NOTE | 2019-02-25 20:24 | MRI Report ---
Reason: infection, oesteomyelitis Procedure Date: 02/25/2019 Accession Number: [id number] / [id number] Procedure: MRI - Foot LT W/WO CPT Code: FULL RESULT: EXAM: LEFT FOREFOOT MRI WITHOUT AND WITH CONTRAST EXAM DATE: 02/25/2019 08:14 PM. CLINICAL HISTORY: Infection, osteomyelitis. COMPARISON: LOWER EXTREMITY LEFT W/ 02/24/2019 10:41 AM. TECHNIQUE: Multiplanar, multisequence T1-weighted and fluid-sensitive sequences of the forefoot before and after administration of intravenous contrast. IV contrast: 7.5 cc Gadavist. Other: None. FINDINGS: Motion artifact on multiple sequences limits the sensitivity of the exam. Bones: Marrow edema and enhancement in the base of the second toe proximal phalanx. Some minimal subcortical enhancement and edema in the head of the second metatarsus. Patchy subcortical edema and cartilage thinning in the first MTP joint, likely degenerative. No significant bony destruction. Remaining bony structures of the forefoot and midfoot appear intact with normal marrow signal. Soft tissues: Moderate second MTP joint effusion with synovial enhancement. Small joint effusions in the first, third and fourth MTP joints, also with synovial enhancement. No evidence of mass or loculated fluid collection. Mild diffuse soft tissue edema and enhancement in the dorsal forefoot and midfoot. IMPRESSION: 1. Osteomyelitis on both sides of the second toe MTP joint with joint effusion, likely associated septic arthritis. 2. Smaller effusions and enhancement in the first, third and fourth MTP joints is nonspecific, and may be seen in the setting of inflammatory osteoarthritis or infection. 3. No evidence of abscess. 4. Diffuse soft tissue edema and enhancement consistent with cellulitis. RADIA MUSCULOSKELETAL RADIOLOGY SECTION
[2019-02-25] MEDS: ZOLPIDEM 5 MG TABLET PO PRN (23:48)
[2019-02-26] MEDS: VANCOMYCIN INJ 1 GM in SODIUM CHLORIDE 0.9% 250 ML IV SCH ×2 (03:08→15:08)
[2019-02-26] MEDS: oxyCODONE 5 MG TABLET PO PRN ×5 (03:09→20:28)
[2019-02-26 05:45] LABS: BASOPHILS # (AUTO) 0.1 10^3/uL (0.0-0.1); BASOPHILS % (AUTO) 2.2 %; EOSINOPHILS # (AUTO) 0.3 10^3/uL (0.0-0.7); EOSINOPHILS % (AUTO) 6.7 %; HGB - HEMOGLOBIN 10.2 g/dL (14.0-18.0); LYMPHOCYTES # (AUTO) 1.4 10^3/uL (1.5-3.5); MEAN CORPUSCULAR HEMOGLOBIN 33.4 pg (27.0-31.0); MEAN CORPUSCULAR HGB CONC 34.1 g/dL (32.0-36.0); MEAN PLATELET VOLUME 8.1 fL (7.4-11.4); MONOCYTES # (AUTO) 1.5 10^3/uL (0.0-1.0); MONOCYTES % (AUTO) 31.6 %; NEUTROPHILS # (AUTO) 1.4 10^3/uL (1.5-6.6); NEUTROPHILS % (AUTO) 29.5 %; PLT - PLATELET COUNT 237 10^3/uL (130-450); RED BLOOD COUNT 3.06 10^6/uL (4.70-6.10); RED CELL DISTRIBUTION WIDTH 14.2 % (12.0-15.0); WHITE BLOOD COUNT 4.6 x10^3/uL (4.8-10.8)
[2019-02-26 05:56] LABS: CALCIUM 8.5 mg/dL (8.5-10.3); CREATININE 1.1 mg/dL (0.6-1.2)
[2019-02-26] MEDS: ACETAMINOPHEN 325 MG TABLET PO PRN ×3 (06:02→20:29)
[2019-02-26] MEDS: LEVOTHYROXINE 75 MCG TABLET PO SCH (06:02)
[2019-02-26] MEDS: PIPERACILLIN/TAZOBACTAM 3.375 GM in SODIUM CHLORIDE 0.9% MINIBAG 100 ML IV SCH ×3 (06:03→18:06)
[2019-02-26] MEDS: SACCHAROMYCES BOULARDII 250 MG CAPSULE PO SCH ×2 (08:20→16:07)
[2019-02-26] MEDS: MAGNESIUM OXIDE 400 MG TABLET PO SCH (08:20)
[2019-02-26] MEDS: buPROPion SR 150 MG TABLET PO SCH ×2 (09:41→20:28)
[2019-02-26] MEDS: ENOXAPARIN 40 MG/0.4 ML SYRINGE SUBQ SCH (09:41)
[2019-02-26] MEDS: POLYETHYLENE GLYCOL 3350 17 GM PACKET PO SCH (09:41)
[2019-02-26] MEDS: FAMOTIDINE 20 MG TABLET PO SCH ×2 (09:41→20:29)
[2019-02-26] MEDS: SODIUM CHLORIDE FLUSH 0.9% 10 ML SYRINGE IVP SCH ×2 (09:42→16:08)
[2019-02-26] MEDS: METOPROLOL SUCCINATE 50 MG TABLET PO SCH (09:44)
[2019-02-26] MEDS: SODIUM CHLORIDE FLUSH 0.9% 10 ML SYRINGE IVP PRN (12:21)
[2019-02-26] MEDS: ZOLPIDEM 5 MG TABLET PO PRN (20:29)
--- NOTE | 2019-02-26 21:47 | PROVIDER PROGRESS NOTE ---
Subjective - Prog Note Date Prog Note Date: 02/26/19 Prog Note Time: 09:00 - Subjective Pt reports feeling: Improved Subjective: Matthew offers no complaints and states that he has ongoing LLE soreness. He denies chest pain, nausea, vomiting, diarrhea, a rash or a new cough. Current Medications - Current Medications Current Medications: Active Medications: Acetaminophen (Tylenol) 650 mg PO Q4HR PRN Bupropion HCl (Wellbutrin Sr) 150 mg PO BID [facility] Famotidine (Pepcid) 20 mg PO BID [facility] Heparin Sodium 30 - 50 unit IVP PRN PRN Piperacillin/Tazobactam (Sod 3.375 gm/ Sodium Chloride) 100 mls @ 200 mls/hr IV Q6H [facility] Vancomycin HCl 1 gm/ Sodium (Chloride) 250 mls @ 167 mls/hr IV Q12H [facility] Levothyroxine Sodium (Synthroid) 150 mcg PO QDAC [facility] Lidocaine/Prilocaine (Emla 2.5% Cream) 1 applic TOP PRN PRN Lorazepam (Ativan) 0.5 mg PO Q6H PRN Magnesium Oxide (Mag Ox) 800 mg PO BIDWM [facility] Metoprolol Succinate (Toprol Xl) 25 mg PO DAILY [facility] Morphine Sulfate (Morphine) 2 mg IVP Q2H PRN Ondansetron HCl (Zofran Inj) 4 mg IVP Q6HR PRN Oxycodone HCl (Roxicodone) 10 mg PO Q4HR PRN Polyethylene Glycol (Miralax) 17 gm PO DAILY [facility] Saccharomyces Boulardii (Florastor) 250 [facility] PO BIDWM [facility] Zolpidem Tartrate (Ambien) 5 mg PO QPM PRN HOME meds: Levothyroxine Sodium 150 mcg PO DAILY 12/20/18 Pantoprazole [Protonix] 40 mg PO QDAC 12/20/18 buPROPion [Wellbutrin Sr] 150 mg PO BID 12/20/18 LORazepam [Lorazepam] 0.5 mg PO Q6H PRN 01/08/19 Metoprolol Succinate [Toprol Xl] 25 mg PO DAILY 02/15/19 Objective - Vital Signs/Intake & Output Reviewed Vital Signs: Yes Vital Signs: Vital Signs x48h Temp Pulse Resp BP Pulse Ox 02/26/19 20:12 36.2 C L 65 18 122/68 98 02/26/19 16:20 36.7 C 76 18 115/67 97 Intake & Output: Intake & Output 02/23/19 02/24/19 02/25/19 02/26/19 23:59 23:59 23:59 23:59 Intake Total 4362.000 3592 2252.000 1490 Output Total 0 1950 1900 Balance 4362.000 3592 302.000 -410 - Objective General Appearance: positive: Alert, Mild distress, Anxious, Lethargic Eyes Bilateral: positive: PERRL Eyes: OU Conjunctivae pale ENT: positive: Pharyngeal erythema, Dry mucous membranes Neck: positive: Thyroid nml, No JVD, Trachea midline, Lymphadenopathy (R), Lymphadenopathy (L), Stiff neck Respiratory: positive: Chest non-tender, No respiratory distress, Breath sounds nml Cardiovascular: positive: Regular rate & rhythm, No gallop, Systolic murmur, Decreased pulse(s) Peripheral Pulses: 1+ Radial (R), 1+ Radial (L) Abdomen: positive: Non-tender, Nml bowel sounds Back: positive: Nml inspection Skin: positive: Color nml (light bronze), No rash, Warm, Dry Extremities: positive: Pedal edema, Joint swelling (tenderness noted in LLE, dependent edema BLEs) Neurologic/Psychiatric: positive: Oriented x3, CN's nml (2-12), Motor nml, Weakness, Depressed mood/affect Reflexes: Bicep (R): 2+, Bicep (L): 2+ - Lab Results Fish Bones: 02/26/19 05:17 02/26/19 05:17 Other Labs: Lab Results x24hrs 02/26/19 02/26/19 Range/Units 05:17 05:17 WBC 4.6 L (4.8-10.8) x10^3/uL RBC 3.06 L (4.70-6.10) 10^6/uL Hgb 10.2 L (14.0-18.0) g/dL Hct 30.0 L (42.0-52.0) % MCV 98.0 H (80.0-94.0) fL MCH 33.4 H (27.0-31.0) pg MCHC 34.1 (32.0-36.0) g/dL RDW 14.2 (12.0-15.0) % Plt Count 237 (130-450) 10^3/uL MPV 8.1 (7.4-11.4) fL Neut # (Auto) 1.4 L (1.5-6.6) 10^3/uL Lymph # (Auto) 1.4 L (1.5-3.5) 10^3/uL [place] # (Auto) 1.5 H (0.0-1.0) 10^3/uL Eos # (Auto) 0.3 (0.0-0.7) 10^3/uL Baso # (Auto) 0.1 (0.0-0.1) 10^3/uL Absolute Nucleated RBC 0.00 x10^3/uL Nucleated RBC % 0.0 /100WBC Sodium 137 (135-145) mmol/L Potassium 3.9 (3.5-5.0) mmol/L Chloride 102 (101-111) mmol/L Carbon Dioxide 27 (21-32) mmol/L Anion Gap 8.0 (6-13) BUN 6 (6-20) mg/dL Creatinine 1.1 (0.6-1.2) mg/dL Estimated GFR (MDRD) 66 L (>89) Glucose 87 (70-100) mg/dL Calcium 8.5 (8.5-10.3) mg/dL ABX Reporting Has patient been on IV antibiotics over the past 48 hours?: Yes Sepsis Event Note (H) - Evaluation Current Stage of Sepsis: Ruled out Assessment/Plan - Problem List (1) Osteomyelitis of foot, left, acute Impression: - Final MRI of left foot notes acute osteo - IV Zosyn and vanco continue - Ortho surgery, Dr. Miller plans for an I & D with bone bx on 02/27 - NPO after MN Plan: Continue treatment, await bx results (2) Cellulitis of foot Impression: - 2nd hospitalization for the same condition - Damaged immunity due to recent chemo for stage 4 esophageal CA - Left great toe, 2nd toe, and 3rd toe involvement, no open areas, but MRI confirms osteo - See chart for photos - [facility] following - Blood cultures - NGTD - Continue Zosyn plus Vano Plan: continue iv antibiotics until bone bx results are available to guide treatment (3) Depression Impression: - Worsening mood today noted on exam as compared to his last hospital stay - sleepy on exam Plan: Continue Wellbutrin, monitor for worsening mood, consider titrating dose Qualifiers: Depression Type: major depressive disorder (4) Esophageal cancer, stage IV Impression: - Stable but with difficulty swallowing -tolerates a soft diet and pills cut or crushed - [place] [facility] [place] Plan: Continue to treat acute infection/now osteo, monitor for improvement (5) HTN (hypertension) Impression: - Metoprolol succinate 25 mg PO daily - B/P 122/68 Plan: Continue to monitor Qualifiers: Hypertension type: essential hypertension Qualified Code(s): I10 - Essential (primary) hypertension
[2019-02-27] MEDS: PIPERACILLIN/TAZOBACTAM 3.375 GM in SODIUM CHLORIDE 0.9% MINIBAG 100 ML IV SCH ×4 (00:09→17:43)
[2019-02-27] MEDS: SODIUM CHLORIDE FLUSH 0.9% 10 ML SYRINGE IVP SCH ×3 (00:09→17:30)
[2019-02-27] MEDS: VANCOMYCIN INJ 1 GM in SODIUM CHLORIDE 0.9% 250 ML IV SCH ×2 (02:55→15:40)
[2019-02-27] MEDS: SODIUM CHLORIDE 0.9% 1,000 ML IV SCH ×2 (02:56→10:15)
[2019-02-27 05:49] LABS: ALBUMIN 2.5 g/dL (3.2-5.5); ALBUMIN/GLOBULIN RATIO 0.9 (1.0-2.2); BILIRUBIN,TOTAL 0.8 mg/dL (0.2-1.0); CALCIUM 8.5 mg/dL (8.5-10.3); CREATININE 1.1 mg/dL (0.6-1.2); CRP - C-REACTIVE PROTEIN 14.5 mg/dL (0-1.0); MAGNESIUM 1.7 mg/dL (1.7-2.8); TOTAL PROTEIN 5.4 g/dL (6.7-8.2)
[2019-02-27 05:55] LABS: BASOPHILS # (AUTO) 0.1 10^3/uL (0.0-0.1); BASOPHILS % (AUTO) 2.9 %; EOSINOPHILS # (AUTO) 0.3 10^3/uL (0.0-0.7); EOSINOPHILS % (AUTO) 5.4 %; LYMPHOCYTES # (AUTO) 1.2 10^3/uL (1.5-3.5); MEAN CORPUSCULAR HEMOGLOBIN 32.7 pg (27.0-31.0); MEAN CORPUSCULAR HGB CONC 33.2 g/dL (32.0-36.0); MEAN CORPUSCULAR VOLUME 98.5 fL (80.0-94.0); MEAN PLATELET VOLUME 8.1 fL (7.4-11.4); MONOCYTES # (AUTO) 1.5 10^3/uL (0.0-1.0); MONOCYTES % (AUTO) 32.3 %; NEUTROPHILS # (AUTO) 1.5 10^3/uL (1.5-6.6); NEUTROPHILS % (AUTO) 33.4 %; PLT - PLATELET COUNT 251 10^3/uL (130-450); RED BLOOD COUNT 3.07 10^6/uL (4.70-6.10); RED CELL DISTRIBUTION WIDTH 14.4 % (12.0-15.0); WHITE BLOOD COUNT 4.6 x10^3/uL (4.8-10.8)
[2019-02-27] MEDS: oxyCODONE 5 MG TABLET PO PRN ×3 (06:27→20:59)
[2019-02-27] MEDS: LEVOTHYROXINE 75 MCG TABLET PO SCH (06:27)
--- NOTE | 2019-02-27 07:02 | ANESTHESIA ---
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 - Procedure I&D 2nd distal metatarsal Vital Signs: Temp Pulse Resp BP Pulse Ox 36.7 C 85 16 134/82 H 97 02/27/19 04:30 02/27/19 04:30 02/27/19 04:30 02/27/19 04:30 02/27/19 04:30 Height 5 ft 10 in Weight (kg) 78.5 kg Body Mass Index 24.8 - Lab Results Current Lab Results: Laboratory Tests 02/27/19 05:05: B-Natriuretic Peptide 277 H 02/27/19 05:05: ESR 105 H 02/27/19 05:05: Sodium 137, Potassium 4.1, Chloride 103, Carbon Dioxide 29, Anion Gap 5.0 L, BUN 8, Creatinine 1.1, Estimated GFR (MDRD) 66 L, Glucose 90, Calcium 8.5, Magnesium 1.7, Total Bilirubin 0.8, AST 17, ALT 20, Alkaline Phosphatase 59, C-Reactive Protein 14.5 H, Total Protein 5.4 L, Albumin 2.5 L, Globulin 2.9, Albumin/Globulin Ratio 0.9 L 02/27/19 05:05: WBC 4.6 L, RBC 3.07 L, Hgb 10.0 L, Hct 30.3 L, MCV 98.5 H, MCH 32.7 H, MCHC 33.2, RDW 14.4, Plt Count 251, MPV 8.1, Neut # (Auto) 1.5, Lymph # (Auto) 1.2 L, [place] # (Auto) 1.5 H, Eos # (Auto) 0.3, Baso # (Auto) 0.1, Absolute Nucleated RBC 0.00, Nucleated RBC % 0.1 02/26/19 05:17: Sodium 137, Potassium 3.9, Chloride 102, Carbon Dioxide 27, Anion Gap 8.0, BUN 6, Creatinine 1.1, Estimated GFR (MDRD) 66 L, Glucose 87, Calcium 8.5 02/26/19 05:17: WBC 4.6 L, RBC 3.06 L, Hgb 10.2 L, Hct 30.0 L, MCV 98.0 H, MCH 33.4 H, MCHC 34.1, RDW 14.2, Plt Count 237, MPV 8.1, Neut # (Auto) 1.4 L, Lymph # (Auto) 1.4 L, [place] # (Auto) 1.5 H, Eos # (Auto) 0.3, Baso # (Auto) 0.1, Absolute Nucleated RBC 0.00, Nucleated RBC % 0.0 02/25/19 05:20: WBC 4.2 L, RBC 2.94 L, Hgb 9.8 L, Hct 28.7 L, MCV 97.7 H, MCH 33.4 H, MCHC 34.2, RDW 14.6, Plt Count 218, MPV 7.9, Neut # (Auto) 1.1 L, Lymph # (Auto) 1.5, [place] # (Auto) 1.1 H, Eos # (Auto) 0.3, Baso # (Auto) 0.1, Absolute Nucleated RBC 0.00, Nucleated RBC % 0.1 02/25/19 05:10: ESR 62 H 02/25/19 05:10: Sodium 138, Potassium 3.6, Chloride 103, Carbon Dioxide 27, Anion Gap 8.0, BUN 7, Creatinine 1.1, Estimated GFR (MDRD) 66 L, Glucose 91, Calcium 8.3 L, Magnesium 1.6 L, C-Reactive Protein 4.4 H 02/24/19 14:40: Last Dose Date 02/24/19, Last Dose Time 423, Vancomycin Trough 14.6 02/24/19 05:30: Sodium 142, Potassium 3.8, Chloride 107, Carbon Dioxide 26, Anion Gap 9.0, BUN 10, Creatinine 1.1, Estimated GFR (MDRD) 66 L, Glucose 90, Calcium 8.4 L 02/24/19 05:30: WBC 3.5 L, RBC 3.19 L, Hgb 10.5 L, Hct 31.4 L, MCV 98.3 H, MCH 33.0 H, MCHC 33.6, RDW 13.7, Plt Count 216, MPV 8.0, Neut # (Auto) 0.9 L, Lymph # (Auto) 1.5, [place] # (Auto) 0.7, Eos # (Auto) 0.3, Baso # (Auto) 0.1, Absolute Nucleated RBC 0.00, Nucleated RBC % 0.0 02/23/19 06:26: TSH 3.28 02/23/19 06:26: Sodium 139, Potassium 3.7, Chloride 109, Carbon Dioxide 25, Anion Gap 5.0 L, BUN 14, Creatinine 1.0, Estimated GFR (MDRD) 74 L, Glucose 80, Calcium 8.1 L, Magnesium 1.5 L 02/23/19 06:26: WBC 2.8 L, RBC 2.96 L, Hgb 10.0 L, Hct 28.8 L, MCV 97.5 H, MCH 33.8 H, MCHC 34.7, RDW 13.7, Plt Count 186, MPV 7.8, Neut # (Auto) 0.7 L, Lymph # (Auto) 1.1 L, [place] # (Auto) 0.6, Eos # (Auto) 0.2, Baso # (Auto) 0.1, Absolute Nucleated RBC 0.00, Nucleated RBC % 0.1 02/22/19 18:43: Lactic Acid 0.7 02/22/19 15:26: ESR 61 H 02/22/19 15:26: Sodium 140, Potassium 3.6, Chloride 108, Carbon Dioxide 25, Anion Gap 7.0, BUN 12, Creatinine 0.9, Estimated GFR (MDRD) 84 L, Glucose 89, Calcium 8.5, Total Bilirubin 0.6, AST 37, ALT 49, Alkaline Phosphatase 67, Total Protein 5.7 L, Albumin 2.9 L, Globulin 2.8, Albumin/Globulin Ratio 1.0, Lipase 53 H 02/22/19 15:26: WBC 3.6 L, RBC 3.22 L, Hgb 10.6 L, Hct 31.2 L, MCV 97.0 H, MCH 32.9 H, MCHC 33.9, RDW 13.3, Plt Count 207, MPV 7.7, Neut # (Auto) 1.2 L, Lymph # (Auto) 1.2 L, [place] # (Auto) 0.9, Eos # (Auto) 0.2, Baso # (Auto) 0.1, Absolute Nucleated RBC 0.00, Nucleated RBC % 0.1 Fish Bones: 02/27/19 05:05 02/27/19 05:05 Home Medications and Allergies Active Medications Acetaminophen (Tylenol) 650 mg PO Q4HR PRN PRN Reason: Pain 1 to 4 Last Admin: 04/09/19 20:29 Dose: 650 mg Bupropion HCl (Wellbutrin Sr) 150 mg PO BID [facility] Last Admin: 02/26/19 20:28 Dose: 150 mg Famotidine (Pepcid) 20 mg PO BID [facility] Last Admin: 02/26/19 20:29 Dose: 20 mg Heparin Sodium (Beef Lung) () 30 - 50 unit IVP PRN PRN PRN Reason: Port Protocol (<24 hours) Last Admin: 02/24/19 20:40 Dose: 30 unit Piperacillin Sod/Tazobactam (Sod 3.375 gm/ Sodium Chloride) 100 mls @ 200 mls/hr IV Q6H [facility] Last Admin: 02/27/19 06:19 Dose: 200 mls/hr Vancomycin HCl 1 gm/ Sodium (Chloride) 250 mls @ 167 mls/hr IV Q12H [facility] Last Infusion: 02/27/19 04:30 Dose: Infused Sodium Chloride (Normal Saline 0.9%) 1,000 mls @ 0 mls/hr IV .Q0M [facility] Last Admin: 02/27/19 02:56 Dose: 20 mls/hr Levothyroxine Sodium (Synthroid) 150 mcg PO QDAC [facility] Last Admin: 02/27/19 06:27 Dose: 150 mcg Lidocaine/Prilocaine (Emla 2.5% Cream) 1 applic TOP PRN PRN PRN Reason: Analgesia Lorazepam (Ativan) 0.5 mg PO Q6H PRN PRN Reason: Nausea / Vomiting Last Admin: 02/25/19 01:21 Dose: 0.5 mg Magnesium Oxide (Mag Ox) 800 mg PO BIDWM [facility] Metoprolol Succinate (Toprol Xl) 25 mg PO DAILY [facility] Last Admin: 02/26/19 09:44 Dose: 25 mg Morphine Sulfate (Morphine) 2 mg IVP Q2H PRN PRN Reason: Pain 8 to 10 Last Admin: 02/25/19 23:48 Dose: 2 mg Ondansetron HCl (Zofran Inj) 4 mg IVP Q6HR PRN PRN Reason: Nausea / Vomiting Oxycodone HCl (Roxicodone) 10 mg PO Q4HR PRN PRN Reason: Pain 8 to 10 Last Admin: 02/27/19 06:27 Dose: 10 mg Polyethylene Glycol (Miralax) 17 gm PO DAILY [facility] Last Admin: 02/26/19 09:41 Dose: 17 gm Saccharomyces Boulardii (Florastor) 250 mg PO BIDWM [facility] Last Admin: 02/26/19 16:07 Dose: 250 mg Sodium Chloride (Normal Saline Flush 0.9%) 10 ml IVP PRN PRN PRN Reason: NEEDED PER PROVIDER ORDERS Last Admin: 02/26/19 12:21 Dose: 10 ml Sodium Chloride (Normal Saline Flush 0.9%) 10 ml IVP 0100,0900,1700 [facility] Last Admin: 02/27/19 00:09 Dose: 10 ml Zolpidem Tartrate (Ambien) 5 mg PO QPM PRN PRN Reason: Insomnia Last Admin: 02/26/19 20:29 Dose: 5 mg Levothyroxine Sodium 150 mcg PO DAILY 12/20/18 Pantoprazole [Protonix] 40 mg PO QDAC 12/20/18 buPROPion [Wellbutrin Sr] 150 mg PO BID 12/20/18 LORazepam [Lorazepam] 0.5 mg PO Q6H PRN 01/08/19 Metoprolol Succinate [Toprol Xl] 25 mg PO DAILY 02/15/19 Allergies/Adverse Reactions: Allergies Allergy/AdvReac Type Severity Reaction Status Date / Time No Known Drug Allergies Allergy Verified 02/22/19 13:45 Anes History & Medical History - Anesthetic History Anesthesia Complications: reports: No previous complications Family history of Anesthesia Complications: Denies Family history of Malignant Hyperthermia: Denies - Medical History Cardiovascular: reports: Hypertension, High cholesterol, Arrhythmia Pulmonary: reports: None Gastrointestinal: reports: GERD, Other (esophageal CA) Urinary: reports: None Neuro: reports: None Musculoskeletal: reports: Gout Endocrine/Autoimmune: reports: HyPOthyroidism Blood Disorders: reports: None Skin: reports: None Smoking Status: Never smoker - Surgical History General: Colonoscopy, EGD Eyes Ears Nose Throat (EENT): Cataracts Orthopedic: Spine surgery, Other Other Past Surgical History: port at L chest Exam General: Alert, Oriented x3, Cooperative Dental: WNL Mouth Openin Fingerbreadth Mallampati classification: II Thyromental Distance: 4-6 cm Respiratory: Lungs clear, Normal breath sounds, No respiratory distress Cardiovascular: Regular rate Neurological: Normal gait, Normal speech Mental/Cognitive Status: Alert/Oriented X3, Normal for patient Cognitive Status: Within normal limits Plan Anesthesia Type: General, MAC Consent for Procedure(s) Verified and Reviewed: Yes Code Status: Attempt Resuscitation ASA classification: 2-Mild systemic disease Is this case an emergency?: No
[2019-02-27] MEDS ORDERED: LACTATED RINGERS 1,000 ML IV ONE ×2 (07:44→08:33)
[2019-02-27] MEDS ORDERED: BUPIVACAINE 0.25%-EPI 1:200000 PF 30 ML VIAL SUBQ ONE (08:05)
[2019-02-27] MEDS ORDERED: ONDANSETRON 4 MG/2 ML VIAL IVP ONE (08:10)
[2019-02-27] MEDS ORDERED: KETOROLAC 30 MG/ML VIAL IVP ONE (08:10)
[2019-02-27] MEDS ORDERED: LIDOCAINE-MPF 2% 5 ML VIAL IM ONE (08:10)
[2019-02-27] MEDS ORDERED: MIDAZOLAM 2 MG/2 ML VIAL IVP ONE (08:10)
[2019-02-27] MEDS ORDERED: DEXAMETHASONE 4 MG/ML VIAL IVP ONE (08:10)
[2019-02-27] MEDS ORDERED: fentaNYL 100 MCG/2 ML VIAL IVP ONE (08:10)
[2019-02-27] MEDS ORDERED: PROPOFOL 200 MG/20 ML VIAL IVP ONE (08:10)
--- NOTE | 2019-02-27 08:38 | OPERATIVE REPORT ---
Operative Report - General Admit Date: 02/22/19 Procedure Date: 02/27/19 Planned Procedure: I and D of left foot bone excision if needed Pre-Op Diagnosis: septic arthritis of 2nd MTP joint Procedure Performed: incision of left foot, arthrotomy of 2nd metatarsal-phalangeal joint, and arthrotomy of great toe MTP joint. synovectomy, debridement of subcutaneous tissue, capsule Post Op Diagnosis: Suspect gout of 1st and 2nd MTP joints. Synovitis, crystalline deposition - Procedure Note Primary Surgeon: cecilia Anesthesia Provider: Samantha jennings Anesthesia Technique: General LMA Pathology: tissue samples and cultures sent. Estimated Blood Loss (mL): 5 Complications: none
[2019-02-27] MEDS: METOPROLOL SUCCINATE 50 MG TABLET PO SCH (10:21)
[2019-02-27] MEDS: SACCHAROMYCES BOULARDII 250 MG CAPSULE PO SCH ×2 (10:21→17:42)
[2019-02-27] MEDS: buPROPion SR 150 MG TABLET PO SCH ×2 (10:21→20:58)
[2019-02-27] MEDS: MAGNESIUM OXIDE 400 MG TABLET PO SCH ×2 (10:21→17:42)
[2019-02-27] MEDS: ENOXAPARIN 30 MG/0.3 ML SYRINGE SUBQ SCH (10:22)
[2019-02-27] MEDS: FAMOTIDINE 20 MG TABLET PO SCH ×2 (10:22→20:59)
[2019-02-27] MEDS: POLYETHYLENE GLYCOL 3350 17 GM PACKET PO SCH (10:23)
--- NOTE | 2019-02-27 11:09 | OPERATIVE REPORT ---
DATE OF SERVICE: 02/27/2019 Physician: Miko Miller MD PREOPERATIVE DIAGNOSIS: Left foot, suspected osteomyelitis and infection of second metatarsophalange al joint. POSTOPERATIVE DIAGNOSIS: Left foot, suspected gouty arthritis and crystal deposition in the first an d second metatarsophalangeal joints. OPERATIVE PROCEDURE: Incision and drainage of left first and second metatarsophalangeal joints with biopsy of capsular tissues and fluid of each of the joints, and debridement of capsular and tissue cr ystalline deposits. OPERATING. Miko Miller MD ANESTHESIA: Dean Rao CRNA, general. INDICATIONS FOR SURGERY: This is a 68-year-old male who has been under the care of the hospitalists as well as his oncologist for a recent infection of his left foot deemed to be a septic arthritis of the second metatarsophalangeal joint with possible osteomyelitis of the second metatarsal. The patie nt has not responded to antibiotics, and has persisted with a discolored swollen foot and pain that p recludes ambulation. I was asked to consult, and an aspiration was negative for fluid return yesterd ay, and the patient had an MRI scan indicating fluid mainly in the second metatarsophalangeal joint, and bony disruption suggesting osteomyelitis. Based on these findings, it was recommended that the p atient undergo arthrotomy, exploration, possible debridement of tissue and bone, with definite obtain ing of cultures and lab specimens. FINDINGS AT SURGERY: The patient's foot at surgery showed swelling and redness focused at the level of the metatarsophalangeal joints, more to the medial side of the foot than the lateral, and mainly i nvolving second and first metatarsophalangeal joints, the erythema extending back to the area just di stal to the ankle. There was warmth in the area, but no skin disruption or wounds. An arthrotomy wa s done first of the second metatarsophalangeal joint. There were crystalline deposits in the tissue and in the chondral surfaces of the joint. There was no obvious purulence, and there actually was mi nimal fluid in that joint. The tissue surrounding it did not have involvement and there was no bony destruction evident of the distal metatarsals. The dissection into the first metatarsophalangeal aftab nt revealed a dense amount of cloudy inflammatory fluid with crystal deposits evident in the joint, n ot necessarily in the fluid, but in the cartilage and in the capsule. OPERATIVE PROCEDURE: The patient was taken to the operating room. He was given a general anesthetic in the supine position with a tourniquet on his thigh. His foot was sterilely prepped and draped in standard fashion. After a surgical timeout was held, the patient underwent a tourniquet inflation, and an incision on the more medial aspect of the second toe directed across the metatarsophalangeal j oint, approximately 1.5 inches in length. The dissection was carefully made, spreading down to the c apsule of the joint, at which point, extracapsular as well as intracapsular collections of gouty armando tals were identified, and specimens taken of the capsule and swabs taken of tissue and fluid. There was very minimal fluid in this area, and so aggressive debridement was not done. It was a very imtiaz nal debridement of the tissues around the approach that had crystalline deposits. Because of a bulging sense of fluid in the great toe MTP joint, a dissection with spreading was done directly over that capsule through the original wound, exposing it and incising it, and obtaining sylvia te a bit of cloudy fluid and crystals, which once again were separately cultured and specimens taken. There was no evidence of bony destruction of the first metatarsophalangeal joint on this approach. Once the specimens were taken, the area was flushed and irrigated thoroughly. It was elected to clos e the skin with interrupted 3-0 nylon and apply a soft dressing. The patient was taken to recovery r oom in stable condition. ESTIMATED BLOOD LOSS: Minimal. COMPLICATIONS: None. SPONGE AND NEEDLE COUNTS: Correct. SPECIMENS: Specimens sent were independent cultures of first and second metatarsophalangeal joints w [facility] tissue specimens. TD: 02/27/2019 10:42
--- NOTE | 2019-02-27 14:41 | PROVIDER PROGRESS NOTE ---
Subjective - Prog Note Date Prog Note Date: 02/27/19 Prog Note Time: 13:00 - Subjective Pt reports feeling: Improved Subjective: Matthew has no complaints except for a throbbing sensation when standing or lowering his feet to the floor. He denies chest pain, nausea, vomiting, a rash, diarrhea, or a new cough. Current Medications - Current Medications Current Medications: Active Medications: Acetaminophen (Tylenol) 650 mg PO Q4HR PRN Bupropion HCl (Wellbutrin Sr) 150 mg PO BID [facility] Enoxaparin Sodium (Lovenox) 30 mg SUBQ DAILY [facility] Famotidine (Pepcid) 20 mg PO BID [facility] Heparin Sodium (Beef Lung) 30 - 50 unit IVP PRN PRN Piperacillin Sod/Tazobactam (Sod 3.375 gm/ Sodium Chloride) 100 mls @ 200 mls/hr IV Q6H [facility] Vancomycin HCl 1 gm/ Sodium (Chloride) 250 mls @ 167 mls/hr IV Q12H [facility] Levothyroxine Sodium (Synthroid) 150 mcg PO QDAC [facility] Lidocaine/Prilocaine (Emla 2.5% Cream) 1 applic TOP PRN PRN Lorazepam (Ativan) 0.5 mg PO Q6H PRN Magnesium Oxide (Mag Ox) 800 mg PO BIDWM [facility] Methylprednisolone (Solu-Medrol (40mg Vial)) 40 mg IVP TID [facility] Metoprolol Succinate (Toprol Xl) 25 mg PO DAILY [facility] Morphine Sulfate (Morphine) 2 mg IVP Q2H PRN Ondansetron HCl (Zofran Inj) 4 mg IVP Q6HR PRN Oxycodone HCl (Roxicodone) 10 mg PO Q4HR PRN Polyethylene Glycol (Miralax) 17 gm PO DAILY [facility] Saccharomyces Boulardii (Florastor) 250 mg PO BIDWM [facility] Zolpidem Tartrate (Ambien) 5 mg PO QPM PRN HOME meds: Levothyroxine Sodium 150 mcg PO DAILY 12/20/18 Pantoprazole [Protonix] 40 mg PO QDAC 12/20/18 buPROPion [Wellbutrin Sr] 150 mg PO BID 12/20/18 LORazepam [Lorazepam] 0.5 mg PO Q6H PRN 01/08/19 Metoprolol Succinate [Toprol Xl] 25 mg PO DAILY 02/15/19 Objective - Vital Signs/Intake & Output Reviewed Vital Signs: Yes Vital Signs: Vital Signs x48h Temp Pulse Pulse Resp BP BP Pulse Ox 02/27/19 12:30 36.4 C L 78 16 125/76 96 02/27/19 11:30 36.4 C L 76 15 119/56 L 96 02/27/19 10:30 36.6 C 70 16 111/63 96 02/27/19 10:00 36.5 C 72 14 121/76 95 02/27/19 09:30 36.5 C 76 15 119/69 96 02/27/19 09:20 36.8 C 77 12 120/65 95 02/27/19 09:15 36.8 C 78 12 112/72 98 02/27/19 09:10 36.8 C 78 10 L 109/68 97 02/27/19 09:05 37. C 80 10 L 118/76 97 02/27/19 09:00 37 C 78 10 L 113/67 100 02/27/19 08:55 37.2 C 80 10 L 107/68 100 02/27/19 08:50 37.1 C 79 10 L 106/61 100 02/27/19 08:45 37.5 C 80 10 L 96/67 99 02/27/19 08:40 37.5 C 80 12 98/60 100 02/27/19 08:35 37.8 C H 81 12 108/61 99 02/27/19 08:33 37.2 C 85 12 105/66 97 Intake & Output: Intake & Output 02/24/19 02/25/19 02/26/19 02/27/19 23:59 23:59 23:59 23:59 Intake Total 3592 2252.000 1490 1550 Output Total 1950 1900 550 Balance 3592 302.000 -410 1000 - Objective General Appearance: positive: No acute distress, Alert Eyes Bilateral: positive: Normal inspection, PERRL Eyes: OU Conjunctivae pale ENT: positive: ENT inspection nml, Pharynx nml, No signs of dehydration Neck: positive: Nml inspection, Thyroid nml, No JVD, Trachea midline Respiratory: positive: Chest non-tender, No respiratory distress, Breath sounds nml Cardiovascular: positive: Regular rate & rhythm, No gallop, Systolic murmur, Decreased pulse(s) Peripheral Pulses: 1+ Radial (R), 1+ Radial (L) Abdomen: positive: Non-tender, Nml bowel sounds Back: positive: Nml inspection Skin: positive: Color nml, No rash, Warm, Dry Extremities: positive: Pedal edema (swelling only to LLE), Joint swelling Neurologic/Psychiatric: positive: Oriented x3, CN's nml (2-12), Motor nml, Sensation nml, Mood/affect nml, Weakness, Other (poor short term memory) Reflexes: Bicep (R): 2+, Bicep (L): 2+ - Lab Results Fish Bones: 02/27/19 05:05 02/27/19 05:05 Other Labs: Lab Results x24hrs 02/27/19 02/27/19 02/27/19 Range/Units 05:05 05:05 05:05 WBC (4.8-10.8) x10^3/uL RBC (4.70-6.10) 10^6/uL Hgb (14.0-18.0) g/dL Hct (42.0-52.0) % MCV (80.0-94.0) fL MCH (27.0-31.0) pg MCHC (32.0-36.0) g/dL RDW (12.0-15.0) % Plt Count (130-450) 10^3/uL MPV (7.4-11.4) fL Neut # (Auto) (1.5-6.6) 10^3/uL Lymph # (Auto) (1.5-3.5) 10^3/uL [place] # (Auto) (0.0-1.0) 10^3/uL Eos # (Auto) (0.0-0.7) 10^3/uL Baso # (Auto) (0.0-0.1) 10^3/uL Absolute Nucleated RBC x10^3/uL Nucleated RBC % /100WBC ESR 105 H (0-20) mm/Hr Sodium 137 (135-145) mmol/L Potassium 4.1 (3.5-5.0) mmol/L Chloride 103 (101-111) mmol/L Carbon Dioxide 29 (21-32) mmol/L Anion Gap 5.0 L (6-13) BUN 8 (6-20) mg/dL Creatinine 1.1 (0.6-1.2) mg/dL Estimated GFR (MDRD) 66 L (>89) Glucose 90 (70-100) mg/dL Calcium 8.5 (8.5-10.3) mg/dL Magnesium 1.7 (1.7-2.8) mg/dL Total Bilirubin 0.8 (0.2-1.0) mg/dL AST 17 (10-42) IU/L ALT 20 (10-60) IU/L Alkaline Phosphatase 59 (42-121) IU/L C-Reactive Protein 14.5 H (0-1.0) mg/dL B-Natriuretic Peptide 277 H (5-100) pg/mL Total Protein 5.4 L (6.7-8.2) g/dL Albumin 2.5 L (3.2-5.5) g/dL Globulin 2.9 (2.1-4.2) g/dL Albumin/Globulin Ratio 0.9 L (1.0-2.2) 02/27/19 Range/Units 05:05 WBC 4.6 L (4.8-10.8) x10^3/uL RBC 3.07 L (4.70-6.10) 10^6/uL Hgb 10.0 L (14.0-18.0) g/dL Hct 30.3 L (42.0-52.0) % MCV 98.5 H (80.0-94.0) fL MCH 32.7 H (27.0-31.0) pg MCHC 33.2 (32.0-36.0) g/dL RDW 14.4 (12.0-15.0) % Plt Count 251 (130-450) 10^3/uL MPV 8.1 (7.4-11.4) fL Neut # (Auto) 1.5 (1.5-6.6) 10^3/uL Lymph # (Auto) 1.2 L (1.5-3.5) 10^3/uL [place] # (Auto) 1.5 H (0.0-1.0) 10^3/uL Eos # (Auto) 0.3 (0.0-0.7) 10^3/uL Baso # (Auto) 0.1 (0.0-0.1) 10^3/uL Absolute Nucleated RBC 0.00 x10^3/uL Nucleated RBC % 0.1 /100WBC ESR (0-20) mm/Hr Sodium (135-145) mmol/L Potassium (3.5-5.0) mmol/L Chloride (101-111) mmol/L Carbon Dioxide (21-32) mmol/L Anion Gap (6-13) BUN (6-20) mg/dL Creatinine (0.6-1.2) mg/dL Estimated GFR (MDRD) (>89) Glucose (70-100) mg/dL Calcium (8.5-10.3) mg/dL Magnesium (1.7-2.8) mg/dL Total Bilirubin (0.2-1.0) mg/dL AST (10-42) IU/L ALT (10-60) IU/L Alkaline Phosphatase (42-121) IU/L C-Reactive Protein (0-1.0) mg/dL B-Natriuretic Peptide (5-100) pg/mL Total Protein (6.7-8.2) g/dL Albumin (3.2-5.5) g/dL Globulin (2.1-4.2) g/dL Albumin/Globulin Ratio (1.0-2.2) ABX Reporting Has patient been on IV antibiotics over the past 48 hours?: Yes Sepsis Event Note (H) - Evaluation Current Stage of Sepsis: Ruled out Assessment/Plan - Problem List (1) Osteomyelitis of foot, left, acute Impression: - Final MRI of left foot notes acute osteo - IV Zosyn and vanco continue - Patient underwent an I & D today with Ortho surgery, Dr. 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, left ankle and foot (3) Cellulitis of foot Impression: - 2nd hospitalization for the same condition - Damaged immunity due to recent chemo for stage 4 esophageal CA - Left great toe, 2nd toe, and 3rd toe involvement, no open areas, but MRI confirms osteo with no abscesses - See chart for photos - WCON following - Blood cultures - NGTD - Continue Zosyn plus Vano - Start solumedrol IV Plan: continue iv antibiotics until bone bx results are available to guide treatment (4) Depression Impression: - Worsening mood today noted on exam as compared to his last hospital stay Plan: Continue Wellbutrin, monitor for worsening mood, consider titrating dose Qualifiers: Depression Type: major depressive disorder (5) Esophageal cancer, stage IV Impression: - Stable but with difficulty swallowing -tolerates a soft diet and pills cut or crushed - Sees Dr. Bonilla in the MAC clinic for ongoing chemo treatment - Patient has been in contact with the Oncology clinic Plan: Continue to treat acute infection/now osteo, monitor for improvement (6) HTN (hypertension) Impression: - Metoprolol succinate 25 mg PO daily - B/P 125/76 Plan: Continue to monitor Qualifiers: Hypertension type: essential hypertension Qualified Code(s): I10 - Essent ial (primary) hypertension
[2019-02-27] MEDS: SODIUM CHLORIDE FLUSH 0.9% 10 ML SYRINGE IVP PRN (15:40)
[2019-02-27] MEDS: methylPREDNISolone SUCCINATE 40 MG/ML VIAL IVP SCH ×2 (15:40→20:59)
[2019-02-27] MEDS: MORPHINE 2 MG/ML SYRINGE IVP PRN (17:42)
[2019-02-27] MEDS: ZOLPIDEM 5 MG TABLET PO PRN (20:59)
[2019-02-28] MEDS: PIPERACILLIN/TAZOBACTAM 3.375 GM in SODIUM CHLORIDE 0.9% MINIBAG 100 ML IV SCH ×3 (00:19→13:12)
[2019-02-28] MEDS: SODIUM CHLORIDE FLUSH 0.9% 10 ML SYRINGE IVP SCH ×3 (00:21→17:37)
[2019-02-28] MEDS: VANCOMYCIN INJ 1 GM in SODIUM CHLORIDE 0.9% 250 ML IV SCH (02:58)
[2019-02-28 05:44] LABS: HGB - HEMOGLOBIN 10.6 g/dL (14.0-18.0); MEAN CORPUSCULAR HGB CONC 33.4 g/dL (32.0-36.0); MEAN CORPUSCULAR VOLUME 98.7 fL (80.0-94.0); MEAN PLATELET VOLUME 8.6 fL (7.4-11.4); RED BLOOD COUNT 3.22 10^6/uL (4.70-6.10); RED CELL DISTRIBUTION WIDTH 14.2 % (12.0-15.0); WHITE BLOOD COUNT 6.4 x10^3/uL (4.8-10.8)
[2019-02-28 05:57] LABS: ALBUMIN 2.3 g/dL (3.2-5.5); ALBUMIN/GLOBULIN RATIO 0.7 (1.0-2.2); BILIRUBIN,TOTAL 0.5 mg/dL (0.2-1.0); CREATININE 1.1 mg/dL (0.6-1.2); TOTAL PROTEIN 5.7 g/dL (6.7-8.2); URIC ACID 3.2 mg/dL (2.6-7.2)
[2019-02-28] MEDS: methylPREDNISolone SUCCINATE 40 MG/ML VIAL IVP SCH ×2 (06:14→13:11)
[2019-02-28] MEDS: LEVOTHYROXINE 75 MCG TABLET PO SCH (06:14)
[2019-02-28] MEDS: oxyCODONE 5 MG TABLET PO PRN ×3 (07:21→17:40)
[2019-02-28] MEDS: buPROPion SR 150 MG TABLET PO SCH (08:24)
[2019-02-28] MEDS: MAGNESIUM OXIDE 400 MG TABLET PO SCH ×2 (08:25→17:37)
[2019-02-28] MEDS: FAMOTIDINE 20 MG TABLET PO SCH (08:25)
[2019-02-28] MEDS: METOPROLOL SUCCINATE 50 MG TABLET PO SCH (08:25)
[2019-02-28] MEDS: SACCHAROMYCES BOULARDII 250 MG CAPSULE PO SCH ×2 (08:25→17:37)
[2019-02-28] MEDS: POLYETHYLENE GLYCOL 3350 17 GM PACKET PO SCH (08:26)
[2019-02-28] MEDS: ENOXAPARIN 30 MG/0.3 ML SYRINGE SUBQ SCH (08:26)
--- NOTE | 2019-02-28 09:32 | PROVIDER PROGRESS NOTE ---
Subjective - General Admit Date: 02/22/19 Procedure Date: 02/27/19 Post Op Days: 1 Procedure Performed: I and D of left foot 1st and 2nd MTPJ. With cultures, tissue BX - Review of Systems Wound/Incisions: positive: Dressing dry and intact Objective - Patient Data Reviewed Vital Signs: Yes Vital Signs: Vital Signs x48h Temp Pulse Resp BP Pulse Ox 02/28/19 07:30 36.5 C 87 18 130/75 94 02/28/19 05:38 36.5 C 99 18 141/81 H 95 Intake & Output: Intake and Output Totals x24h 02/26/19 02/27/19 02/28/19 23:59 23:59 23:59 Intake Total 1490 3460 875 Output Total 1900 550 Balance -410 2910 875 - Lab Results Lab Results: 02/28/19 05:10 02/28/19 05:10 Other Lab Results: Lab Results x24hrs 02/28/19 02/28/19 Range/Units 05:10 05:10 WBC 6.4 (4.8-10.8) x10^3/uL RBC 3.22 L (4.70-6.10) 10^6/uL Hgb 10.6 L (14.0-18.0) g/dL Hct 31.8 L (42.0-52.0) % MCV 98.7 H (80.0-94.0) fL MCH 33.0 H (27.0-31.0) pg MCHC 33.4 (32.0-36.0) g/dL RDW 14.2 (12.0-15.0) % Plt Count 293 (130-450) 10^3/uL MPV 8.6 (7.4-11.4) fL Sodium 141 (135-145) mmol/L Potassium 4.5 (3.5-5.0) mmol/L Chloride 105 (101-111) mmol/L Carbon Dioxide 27 (21-32) mmol/L Anion Gap 9.0 (6-13) BUN 12 (6-20) mg/dL Creatinine 1.1 (0.6-1.2) mg/dL Estimated GFR (MDRD) 66 L (>89) Glucose 132 H (70-100) mg/dL Uric Acid 3.2 (2.6-7.2) mg/dL Calcium 9.0 (8.5-10.3) mg/dL Total Bilirubin 0.5 (0.2-1.0) mg/dL AST 15 (10-42) IU/L ALT 18 (10-60) IU/L Alkaline Phosphatase 55 (42-121) IU/L Total Protein 5.7 L (6.7-8.2) g/dL Albumin 2.3 L (3.2-5.5) g/dL Globulin 3.4 (2.1-4.2) g/dL Albumin/Globulin Ratio 0.7 L (1.0-2.2) - Current Medications Current Medications: Current Medications Generic Name Dose Route Start Last Admin Trade Name Freq PRN Reason Stop Dose Admin Acetaminophen 650 mg 02/22/19 17:33 02/26/19 20:29 Tylenol PO 650 mg Q4HR PRN Administration Pain 1 to 4 Bupropion HCl 150 mg 02/22/19 21:00 02/28/19 08:24 Wellbutrin Sr PO 150 mg BID BLOSSOM Administration Enoxaparin Sodium 30 mg 02/27/19 09:00 02/28/19 08:26 Lovenox SUBQ 30 mg DAILY BLOSSOM Administration Famotidine 20 mg 02/22/19 21:00 02/28/19 08:25 Pepcid PO 20 mg BID BLOSSOM Administration Heparin Sodium (Beef Lung) 30 - 50 unit 02/23/19 10:58 02/24/19 20:40 IVP 30 unit PRN PRN Administration Port Protocol (<24 hours) Piperacillin Sod/Tazobactam 100 mls @ 200 mls/hr 02/22/19 18:00 02/28/19 06:57 Sod 3.375 gm/ Sodium Chloride IV Infused Q6H BLOSSOM Infusion Vancomycin HCl 1 gm/ Sodium 250 mls @ 167 mls/hr 02/23/19 03:00 02/28/19 05:35 Chloride IV Infused Q12H BLOSSOM Infusion Sodium Chloride 1,000 mls @ 0 mls/hr 02/27/19 02:00 02/27/19 10:15 Normal Saline 0.9% IV 20 mls/hr .Q0M BLOSSOM Administration TKO Levothyroxine Sodium 150 mcg 02/23/19 07:00 02/28/19 06:14 Synthroid PO 150 mcg QDAC BLOSSOM Administration Lorazepam 0.5 mg 02/22/19 18:08 02/25/19 01:21 Ativan PO 0.5 mg Q6H PRN Administration Nausea / Vomiting Magnesium Oxide 800 mg 02/27/19 08:00 02/28/19 08:25 Mag Ox PO 800 mg BIDWM BLOSSOM Administration Methylprednisolone 40 mg 02/27/19 15:00 02/28/19 06:14 Solu-Medrol (40mg Vial) IVP 40 mg TID BLOSSOM Administration Metoprolol Succinate 25 mg 02/23/19 09:00 02/28/19 08:25 Toprol Xl PO 25 mg DAILY BLOSSOM Administration Morphine Sulfate 2 mg 02/22/19 17:33 02/27/19 17:42 Morphine IVP 2 mg Q2H PRN Administration Pain 8 to 10 Oxycodone HCl 10 mg 02/24/19 08:04 02/28/19 07:21 Roxicodone PO 10 mg Q4HR PRN Administration Pain 8 to 10 Polyethylene Glycol 17 gm 02/23/19 09:00 02/28/19 08:26 Miralax PO 17 gm DAILY BLOSSOM Administration Saccharomyces Boulardii 250 mg 02/23/19 08:00 02/28/19 08:25 Florastor PO 250 mg BIDWM BLOSSOM Administration Sodium Chloride 10 ml 02/22/19 17:33 02/27/19 15:40 Normal Saline Flush 0.9% IVP 10 ml PRN PRN Administration NEEDED PER PROVIDER ORDERS Sodium Chloride 10 ml 02/23/19 01:00 02/28/19 00:21 Normal Saline Flush 0.9% IVP Not Given 0100,0900,1700 BLOSSOM Zolpidem Tartrate 5 mg 02/22/19 17:33 02/27/19 20:59 Ambien PO 5 mg QPM PRN Administration Insomnia
--- NOTE | 2019-02-28 13:49 | Discharge Plan ---
Discharge Plan Disposition: 01 Home, Self Care Condition: Good Prescriptions: Colchicine 0.6 mg PO BID #60 capsule Oxycodone HCl 10 mg PO Q4H PRN #42 tablet PRN Reason: Pain Prednisone 10 mg PO DAILY 4 Days #10 tab.ds.pk Diet: Regular Activity Restrictions: Activity as Tolerated Instruction Topics: Oxycodone tablets or capsules, Gout, Cellulitis Dc Additional Instructions or Follow Up instructions: You were admitted for the second time for treatment of cellulitis. For lack of improvement and the MRI report indicating osteomyelitis, Dr. Miller, Ortho surgery completed an incision and drainage including and took samples of the tissues to rule out an infection. You were found to have very severe Gout, and were started on IV steroids, which made a huge improvement in the swelling and pain of your left lower extremity. I personally spoke with Alexa from Oncology who want you to plan on seeing Dr. Bonilla on Wednesday March 06, 2019 since this finding of gout. Please say on your steroid taper of prednisone for the next 4 days, and take a new medication called colchicine twice daily. Once your flare-up is over, you may be prescribed Allopurinol as a maintenance medication. Since you underwent a surgical procedure, please continue the Clindamycin that was previously prescribed until Tuesday March 05, 2019. Please see your PCP within one week of this stay. No Smoking: If you smoke, Please STOP! Call for help. Follow-up with: DAVID WALTON PA-C [Primary Care Provider] -
--- NOTE | 2019-02-28 14:09 | DISCHARGE SUMMARY ---
"Discharge Summary Admit Date: 02/22/19 Discharge Date: 02/28/19 Discharging Provider: KATIE Baez Primary Care Provider: Gardenia Ortiz Code Status: Attempt Resuscitation Condition at Discharge: Good Discharge Disposition: 01 Home, Self Care - DIAGNOSES Admission Diagnoses: Cellulitis of left lower limb (L03.116) Malignant neoplasm of esophagus, unspecified (C15.9) Hypothyroidism, unspecified (E03.9) Major depressive disorder, single episode, unspecified (F32.9) Essential (primary) hypertension (I10) Discharge Diagnoses with Status of Each Condition: Gout attack (M10.9) new on this admission, based on physical findings after I & D with Dr. Miller, continue prednisone taper and start cochlechine BID Status post incision and drainage (Z98.890) resolved, cultures pending Cellulitis of left foot (L03.116) improved, stay on Clindamycin until 03/05/2019 Failure of outpatient treatment (Z78.9) resolved Depression (F32.9) chronic, stable Esophageal cancer, stage IV (C15.9) chronic, stable Essential (primary) hypertension (I10) chronic, stable Osteomyelitis of left foot (M86.9) ruled out Hypothyroidism (E03.9) chronic, stable GERD (gastroesophageal reflux disease) (K21.9) chronic, stable Odynophagia (R13.10) chronic, stable - HPI History of Present Illness: Carroll Sotomayor is a 68-year old male with a past medical history of hypertension, hypothyroidism, HLD, heart arrhythmia, GERD, gout, chronic vision loss, depression, esophageal cancer stage IV, and status post cycle 2 of chemotherapy of FOLFOX. He presented to the ED with complaints of gradual onset, redness on the dorsum of the foot starting at the base of the second toe and spread into the dorsal lateral aspect of the top of the foot. He was recently in the hospital and treated for cellulitis with concern for his immuno- compromise given chemotherapy. He was improved in the hospital and was disc harged on clindamycin. Patient reported that he visited his oncologist last Monday, and was denied chemotherapy agents due to the potential chemotherapy side effects and ongoing infection. He denied fevers, chills, cough, shortness of breath, chest pain, abdominal pain, nausea, vomiting, or diarrhea. Labs showed a low normal white count of 3.6, H/H of 10.6/31.2, ESR was elevated at 47, serum uric acid was normal. The patient was afebrile and hemodynamically stable upon admission. He was admitted for recurrent cellulitis of the left foot, see chart for photos. - CONSULTS | PROCEDURES Consultations: Ortho surgery- Dr. Miller Procedures: I & D with tissue cultures of left foot - HOSPITAL COURSE Hospital Course: This was the 2nd admission in a short time, of which cellulitis was the initial diagnosis. An MRI indicated osteomyelitis to the LLE, so an I & D was performed and once the skin was opened, this appeared to be more like gout flare up with crystals and nothing to drain. Also the bone appeared healthy, so no bone bx was taken. The patient had a long hospital course and was anxious to return home. I personally spoke with Alexa Vickers NP from Oncology who was informed of our impression and would like the patient to plan for his next chemo on Monday with Dr. Bonilla. He was instructed to continue to take the previously prescribed Clindamycin until Tuesday March 05, 2019 and the 4 day steroid taper. He was ambulatory and Dr. Miller saw him, changed the dressing and ordered an orthotic shoe. He was transported home with his via private car. - ALLERGIES Allergies/Adverse Reactions: Allergies Allergy/AdvReac Type Severity Reaction Status Date / Time No Known Drug Allergies Allergy Verified 02/22/19 13:45 - MEDICATIONS Home Medications: Ambulatory Orders Medication Instructions Recorded Confirmed Levothyroxine Sodium 150 mcg PO DAILY 12/20/18 02/23/19 Pantoprazole [Protonix] 40 mg PO QDAC 12/20/18 02/23/19 buPROPion [Wellbutrin Sr] 150 mg PO BID 12/20/18 02/23/19 LORazepam [Lorazepam] 0.5 mg PO Q6H PRN 01/08/19 02/23/19 Lidocaine/Prilocain 2.5% Cream 1 cm TOP PRN PRN #1 tube 01/08/19 02/23/19 [Emla 2.5% Cream] Ondansetron HCl [Zofran] 1 tab PO Q4H PRN #30 tablet 01/08/19 02/23/19 Prochlorperazine Maleate 10 mg PO Q6H PRN #30 tablet 01/08/19 02/23/19 Saccharomyces Boulardii [Florastor] 250 mg PO BID #14 capsule 02/19/19 02/23/19 Colchicine 0.6 mg PO BID #60 capsule 02/28/19 Metoprolol Succinate [Toprol Xl] 25 mg PO DAILY tablet 02/28/19 Oxycodone HCl 10 mg PO Q4H PRN #42 tablet 02/28/19 Prednisone 10 mg PO DAILY 4 Days #10 tab.ds.pk 02/28/19 - PHYSICAL EXAM AT DISCHARGE General Appearance: positive: No acute distress, Alert Eyes Bilateral: positive: Normal inspection, PERRL ENT: positive: ENT inspection nml, Pharynx nml, No signs of dehydration Neck: positive: Nml inspection, Thyroid nml, No JVD, Trachea midline Respiratory: positive: Chest non-tender, No respiratory distress, Breath sounds nml Cardiovascular: positive: Regular rate & rhythm, No gallop, Systolic murmur Peripheral Pulses: positive: 2+ Abdomen: positive: Non-tender, Nml bowel sounds Back: positive: Nml inspection Skin: positive: Color nml, No rash, Warm, Dry Extremities: positive: Non-tender, Full ROM, Nml appearance Neurologic/Psychiatric: positive: Oriented x3, CN's nml (2-12), Motor nml, Sensation nml, Mood/affect nml Reflexes: Bicep (R): 3+, Bicep (L): 3+ - LABS Result Diagrams: 02/28/19 05:10 02/28/19 05:10 - DIAGNOSTIC IMAGING Diagnostic Imaging Results: Final report reviewed Diagnostic Imaging Results Comments: EXAM: LEFT LOWER EXTREMITY CT WITH CONTRAST EXAM DATE: 02/24/2019 10:59 AM FINDINGS: Bones: No fracture or bone lesion. Joints: Limited evaluation of alignment on [id number] imaging. Minimal degenerative changes at the tibiotalar joint with small joint effusion. Minimal degenerative changes at the subtalar joint and mid foot. Mild degenerative changes first metatarsophalangeal joint with suggestion of mild hallux valgus. Suggestion of moderate to large joint effusion at the second metatarsophalangeal joint. Musculature: No gross fatty atrophy. Limited evaluation for muscle edema. Limited evaluation of the tendons. Other: Mild circumferential subcutaneous edema throughout the visualized distal lower leg. Moderate subcutaneous edema at the hindfoot and extending over the dorsal and lateral aspects mid foot and forefoot. No focal rim-enhancing fluid collection. IMPRESSION: 1. Moderate subcutaneous edema versus cellulitis. 2. No drainable fluid collection/abscess. 3. No gross erosive changes to suggest osteomyelitis. Evaluation for osteomyelitis significantly limited on CT. If clinical concern for deep infection, MRI with contrast recommended if patient is able. 4. Moderate to large joint effusion of the second metatarsophalangeal joint, nonspecific. 5. Minimal to mild degenerative changes. EXAM: LEFT FOREFOOT MRI WITHOUT AND WITH CONTRAST EXAM DATE: 02/25/2019 08:14 PM FINDINGS: Motion artifact on multiple sequences limits the sensitivity of the exam. Bones: Marrow edema and enhancement in the base of the second toe proximal phalanx. Some minimal subcortical enhancement and edema in the head of the second metatarsus. Patchy subcortical edema and cartilage thinning in the first MTP joint, likely degenerative. No significant bony destruction. Remaining bony structures of the forefoot and mid-foot appear intact with normal marrow signal. Soft tissues: Moderate second MTP joint effusion with synovial enhancement. Small joint effusions in the first, third and fourth MTP joints, also with synovial enhancement. No evidence of mass or loculated fluid collection. Mild diffuse soft tissue edema and enhancement in the dorsal forefoot and midfoot. IMPRESSION: 1. Osteomyelitis on both sides of the second toe MTP joint with joint effusion, likely associated septic arthritis. 2. Smaller effusions and enhancement in the first, third and fourth MTP joints is nonspecific, and may be seen in the setting of inflammatory osteoarthritis or infection. 3. No evidence of abscess. 4. Diffuse soft tissue edema and enhancement consistent with cellulitis. - SEPSIS Current Stage of Sepsis: Ruled out - FOLLOW UP Follow Up: Disposition: Home, Self Care Prescriptions: Colchicine 0.6 mg PO BID #60 capsule Prednisone 10 mg PO DAILY 4 Days #10 tab.ds.pk Oxycodone 10 mg PO Q4H PRN for LLE pain #42 Additional Instructions or Follow Up instructions: You were admitted for the second time for treatment of cellulitis. For lack of improvement and the MRI report indicating osteomyelitis, Dr. Miller, Ortho surgery completed an incision and drainage including and took samples of the tissues to rule out an infection. You were found to have very severe Gout, and were started on IV steroids, which made a huge improvement in the swelling and pain of your left lower extremity. I personally spoke with Alexa from Oncology who want you to plan on seeing Dr. Bonilla on Wednesday March 06, 2019 since this finding of gout. Please say on your steroid taper of prednisone for the next 4 days, and take a new medication called colchicine twice daily. Once your flare-up is over, you may be prescribed Allopurinol as a maintenance medication. Since you underwent a surgical procedure, please continue the Clindamycin that was previously prescribed until Tuesday March 05, 2019. Please see your PCP within one week of this stay. - TIME SPENT Time Spent in Discharge (Minutes): 50"
[2019-02-28] MEDS ORDERED: METOPROLOL SUCCINATE 25 MG TABLET PO ONE (14:24)
[2019-02-28 15:55] VITALS: BP 140/77
== END 2019-02-28 18:07 | disposition home or self-care (01) | DRG 603 ==
LOC: ED 13:19 → MS2 17:33
PROVIDERS: ADMIT Nurse Practitioner Gerontology; ATTEND Nurse Practitioner
PROC: 0SBN0ZX Excision of Left Metatarsal-Phalangeal Joint, Open Approach, Diagnostic (ICD-10-PCS; principal; 2019-02-27 07:30)
DX: L03.116 Cellulitis of left lower limb (principal); C15.9 Malignant neoplasm of esophagus, unspecified; M10.472 Other secondary gout, left ankle and foot; E78.00 Pure hypercholesterolemia, unspecified; I10 Essential (primary) hypertension; E03.9 Hypothyroidism, unspecified; K21.9 Gastro-esophageal reflux disease without esophagitis; F32.9 Major depressive disorder, single episode, unspecified; H54.7 Unspecified visual loss; R13.10 Dysphagia, unspecified; E78.5 Hyperlipidemia, unspecified; I49.9 Cardiac arrhythmia, unspecified; Z79.899 Other long term (current) drug therapy
CPT/HCPCS: 36415; 36556; 73701; 73720; 80048; 80053; 80202; 83605; 83690; 83735; 83880; 84443; 84550; 85025; 85027; 85651; 86140; 87040; 87070; 87077; 87181; 87205; 93971; 96361; 96365; 96367; 99283; 99284; A9270; A9585; J0690; J1170; J1650; J2270; J3370; J7040; J7120; Q9967

== ENCOUNTER 2019-03-16 13:11 | Outpatient (CLI) | payer MEDICARE, OTHER ==
[2019-03-16] MEDS ORDERED: GADOBUTROL 7.5 MMOL/7.5 ML VIAL ONE (13:22)
[2019-03-16] MEDS ORDERED: GADOBUTROL 7.5 MMOL/7.5 ML VIAL IVP ONE (14:10)
--- NOTE | 2019-03-16 14:37 | MRI Report ---
Reason: CALF PAIN,RIGHT Procedure Date: 03/16/2019 Accession Number: [id number] / [id number] Procedure: MRI - Lower Leg (Tib-Fib) RT W/WO CPT Code: FULL RESULT: EXAM: RIGHT CALF/TIBIA MRI WITHOUT AND WITH CONTRAST EXAM DATE: 03/16/2019 02:22 PM. CLINICAL HISTORY: Right calf pain extending from the Achilles. Patient is on chemotherapy and Levaquin. COMPARISON: CT 02/24/2019. TECHNIQUE: Multiplanar, multisequence T1-weighted and fluid-sensitive sequences of the calf/tibia before and after administration of intravenous contrast. IV contrast: 9.5 mL Gadavist. Other: None. FINDINGS: Bones: No fractures or subluxations. No marrow edema or abnormal enhancement. No bone lesions. Joint Spaces: Visualized portions of the ankle and knee joints are unremarkable. Tendons: The Achilles tendon is mildly thickened. Musculature: A mild amount of fluid is in the medial crural fascial plane and there is a small amount of enhancement surrounding this. The distal myotendinous junction of the soleus is edematous and enhances. Incidentally noted is a lipoma between the superficial and posterior compartments of the distal calf. It measures 3.1 x 1.1 x 7.7 cm. Other: The subcutaneous tissues are unremarkable. No abscess or cellulitis. IMPRESSION: Edema of the myotendinous junction of the distal soleus with fluid and enhancement in the medial crural fascia more proximally. The differential diagnosis includes trauma (muscular strain and fascial partial tearing) or drug induced myositis. RADIA
== END 2019-03-16 13:12 | disposition home or self-care (01) ==
LOC: DI 13:11
PROVIDERS: ATTEND Family Medicine
DX: M79.661 Pain in right lower leg (principal); R60.0 Localized edema
CPT/HCPCS: 73720; A9585

== ENCOUNTER 2019-04-21 00:43 | Emergency (ER) | payer MEDICARE, OTHER ==
--- NOTE | 2019-04-21 01:22 | ED Physician Documentation ---
PD HPI LOWER EXT INJURY - Stated complaint Stated Complaint: LOWER PAIN IN BOTH LEGS - Chief complaint Chief Complaint: Ext Problem - History obtained from History obtained from: Patient - History of Present Illness PD HPI LOW EXT INJURY LOCATION: Right, Left, Knee, Foot Type of injury: No: Fall, Twist Timing - onset: How many days ago (2-3) Timing - duration: Days Timing - details: Gradual onset, Still present Worsened by: Moving, Palpating Associated symptoms: Swelling, Discolored (mild redness). No: Weakness, Numbness Similar symptoms before: Diagnosis (had been admitted for redness of left foot concerning for infection/cellulitis, but Dx with gout on surgical eval (Dr. Miller did opening of the area of red/swelling and no clinical infection).) Recently seen: Emergency Dept, Admitted (couple weeks ago for similar symptoms left foot with question of cellulitis, with subsequent Dx of gout. Patient finished abx and colchicine. Had improved in foot. Now symptoms both knees and feet, mostly left.) Review of Systems Constitutional: reports: Myalgias, Fatigue. denies: Fever, Chills Nose: denies: Rhinorrhea / runny nose, Congestion Throat: denies: Sore throat Respiratory: denies: Cough Skin: denies: Abrasion (s), Laceration (s) Neurologic: denies: Focal weakness, Numbness, Near syncope PD PAST MEDICAL HISTORY - Past Medical History Past Medical History: Yes Cardiovascular: Hypertension, High cholesterol, Arrhythmia Respiratory: None Neuro: None Endocrine/Autoimmune: HyPOthyroidism GI: GERD, Other : None HEENT: Chronic vision loss Psych: Depression Musculoskeletal: Gout Derm: None - Past Surgical History Past Surgical History: Yes General: Colonoscopy, EGD Ortho: Spine surgery, Other HEENT: Cataracts - Present Medications Home Medications: Ambulatory Orders Medication Instructions Recorded Confirmed Levothyroxine Sodium 150 mcg PO DAILY 12/20/18 04/17/19 Pantoprazole [Protonix] 40 mg PO QDAC 12/20/18 04/17/19 buPROPion [Wellbutrin Sr] 150 mg PO BID 12/20/18 04/17/19 LORazepam [Lorazepam] 0.5 mg PO Q6H PRN 01/08/19 04/17/19 Lidocaine/Prilocain 2.5% Cream 1 cm TOP PRN PRN #1 tube 01/08/19 04/17/19 [Emla 2.5% Cream] Ondansetron HCl [Zofran] 1 tab PO Q4H PRN #30 tablet 01/08/19 04/17/19 Prochlorperazine Maleate 10 mg PO Q6H PRN #30 tablet 01/08/19 04/17/19 Metoprolol Succinate [Toprol Xl] 25 mg PO DAILY tablet 02/28/19 04/17/19 Levofloxacin [Levaquin] 500 mg PO DAILY 03/06/19 04/17/19 Megestrol Acetate 800 mg PO DAILY 03/20/19 04/17/19 Allopurinol 100 mg PO DAILY 04/17/19 04/17/19 Baclofen 10 mg PO DAILY 04/17/19 04/17/19 Colchicine 0.6 mg PO TID PRN #15 tablet 04/21/19 Oxycodone HCl/Acetaminophen 1 - 2 each PO Q6H PRN #25 tablet 04/21/19 [Percocet 5-325 mg Tablet] dexAMETHasone [Decadron] 4 mg PO DAILY #5 tablet 04/21/19 - Allergies Allergies/Adverse Reactions: Allergies Allergy/AdvReac Type Severity Reaction Status Date / Time No Known Drug Allergies Allergy Verified 04/21/19 00:50 - Social History Does the pt smoke?: No Smoking Status: Never smoker Does the pt drink ETOH?: No Does the pt have substance abuse?: No - Immunizations Immunizations are current?: Yes - POLST Patient has POLST: No POLST Status: Full Code PD ED PE NORMAL - Vitals Vital signs reviewed: Yes - General General: Alert and oriented X 3, No acute distress, Well developed/nourished - Neck Neck: Supple, no meningeal sign, No adenopathy - Cardiac Cardiac: RRR, No murmur - Respiratory Respiratory: Clear bilaterally - Abdomen Abdomen: Soft, Non tender - Back Back: No CVA TTP - Derm Derm: Normal color, Warm and dry - Extremities Extremities: No edema, No calf tenderness / cord, Other (both knees with some redness and mild effusion anteriorly. Very tender. Left more than right. Left dorsum foot with redness and tender as well. No skin sores nor erosions. Healing surgical scar top of distal foot. ) - Neuro Neuro: Alert and oriented X 3, No motor deficit, No sensory deficit, Normal speech Results - Vitals Vitals: Vital Signs - 24 hr 04/21/19 04/21/19 04/21/19 00:47 02:06 02:41 Temperature 37.1 C 36.4 C L Heart Rate 95 82 94 Respiratory 18 16 17 Rate Blood Pressure 141/60 H 118/65 125/68 O2 Saturation 99 99 99 Oxygen O2 Source Room air PD MEDICAL DECISION MAKING - ED course Complexity details: considered differential (has mostly pain in left knee and right dorsal foot, both with some redness and warmth. Mild effusion in both knees. Seems c/w gout. ), d/w patient Departure - Departure Disposition: 01 Home, Self Care Clinical Impression: Bilateral leg and foot pain Acute gout Qualifiers: Gout site: multiple sites Gout etiology: unspecified cause Qualified Code(s): M10.9 - Gout, unspecified Condition: Stable Record reviewed to determine appropriate education?: Yes Instructions: ED Arthritis Gout Follow-Up: Haile Ortiz MD [Primary Care Provider] - Prescriptions: Colchicine 0.6 mg PO TID PRN #15 tablet PRN Reason: Pain dexAMETHasone [Decadron] 4 mg PO DAILY #5 tablet Oxycodone HCl/Acetaminophen [Percocet 5-325 mg Tablet] 1 - 2 each PO Q6H PRN #25 tablet PRN Reason: pain Comments: This reasonably can sound like gout. Stay well-hydrated. Continue your ibuprofen at home 2-3 times a day. Add Decadron steroid anti-inflammatory daily for 5 more days. You can use colchicine to 3 times a day for the next several days as well until improving. Add Tylenol or Percocet if needed for pain. Recheck if not improving over the next couple of days return sooner if worsening. Discharge Date/Time: 04/21/19 02:43
[2019-04-21] MEDS ORDERED: oxyCODONE 5 MG TABLET PO STA (01:54)
[2019-04-21] MEDS ORDERED: NAPROXEN 250 MG TABLET PO STA (01:55)
[2019-04-21] MEDS ORDERED: CHERRY SYRUP 10 ML UDC PO ONE (01:55)
[2019-04-21] MEDS ORDERED: oxyCODONE/ACET 5/325 Prepack 4 PO STA (01:55)
[2019-04-21] MEDS ORDERED: DEXAMETHASONE 10 MG/ML VIAL PO STA (01:55)
[2019-04-21 02:42] VITALS: BP 125/68
== END 2019-04-21 02:43 | disposition home or self-care (01) ==
LOC: ED 00:43
DX: M10.9 Gout, unspecified (principal); M25.561 Pain in right knee; M25.562 Pain in left knee; M79.671 Pain in right foot; M79.672 Pain in left foot; M25.461 Effusion, right knee; M25.462 Effusion, left knee; I10 Essential (primary) hypertension
CPT/HCPCS: 99283; 99284; A9270

== ENCOUNTER 2019-05-01 08:00 | Outpatient (CLI) | payer MEDICARE, OTHER ==
[2019-05-01 19:09] LABS: CALCIUM 8.7 mg/dL (8.5-10.3); CREATININE 1.1 mg/dL (0.6-1.2); URIC ACID 5.1 mg/dL (2.6-7.2)
== END 2019-05-01 08:01 | disposition home or self-care (01) ==
LOC: LAB.WCP 08:00
PROVIDERS: ATTEND Family Medicine
DX: M10.9 Gout, unspecified (principal)
CPT/HCPCS: 36415; 80048; 84550

== ENCOUNTER 2019-05-13 22:19 | Inpatient (IN) | payer MEDICARE, OTHER ==
[2019-05-13 23:48] LABS: BASOPHILS % (AUTO) 0.7 %; EOSINOPHILS % (AUTO) 1.4 %; HGB - HEMOGLOBIN 11.9 g/dL (14.0-18.0); LYMPHOCYTES % (AUTO) 39.9 %; MEAN CORPUSCULAR HEMOGLOBIN 33.9 pg (27.0-31.0); MEAN CORPUSCULAR HGB CONC 32.8 g/dL (32.0-36.0); MEAN CORPUSCULAR VOLUME 103.4 fL (80.0-94.0); MEAN PLATELET VOLUME 9.4 fL (7.4-11.4); MONOCYTES % (AUTO) 18.2 %; NEUTROPHILS % (AUTO) 38.4 %; PLT - PLATELET COUNT 267 10^3/uL (130-450); RED BLOOD COUNT 3.51 10^6/uL (4.70-6.10)
[2019-05-13 23:53] LABS: INR 1.5 (0.8-1.2); PT - PROTHROMBIN TIME 17.2 secs (9.9-12.6)
[2019-05-13 23:57] LABS: WHITE BLOOD COUNT 1.5 x10^3/uL (4.8-10.8)
[2019-05-14] LABS: ABNORMAL LYMPHS % (MANUAL) 0 %; ALBUMIN 3.2 g/dL (3.2-5.5); ALBUMIN/GLOBULIN RATIO 1.2 (1.0-2.2); BILIRUBIN,TOTAL 1.4 mg/dL (0.2-1.0); CALCIUM 8.9 mg/dL (8.5-10.3); CREATININE 1.2 mg/dL (0.6-1.2); PARTIAL THROMBOPLASTIN TIME 22.6 secs (24.9-33.3); TOTAL PROTEIN 5.9 g/dL (6.7-8.2)
--- NOTE | 2019-05-14 00:03 | ED Physician Documentation ---
History of Present Illness - Stated complaint Stated Complaint: UNABLE TO EAT/MAC PT - Chief complaint Chief Complaint: Abd Pain - History obtained from History obtained from: Patient, Family - History of Present Illness Timing: How many days ago (3) - Additonal information Additional information: 68-year-old male undergoing chemotherapy for stage IV esophageal cancer has not been eating and not been drinking well and now has developed fatigue increased from baseline reduced activity pounding heart rate dizziness on standing nausea and malaise. He last had chemo done on 05/07/2019. He has only previously had mild neutropenia associated with his chemotherapy. Today his stated that he felt warm but she was unable to register a fever. Here in the emergency department we have registered low-grade fever. Review of Systems Constitutional: reports: Fever, Chills, Myalgias, Fatigue, Weight Loss, Sweats Eyes: denies: Decreased vision Ears: denies: Ear pain Nose: denies: Rhinorrhea / runny nose, Congestion Throat: denies: Sore throat Cardiac: denies: Chest pain / pressure, Palpitations Respiratory: denies: Dyspnea, Cough, Wheezing GI: reports: Abdominal Pain, Nausea, Diarrhea. denies: Vomiting : denies: Dysuria, Frequency Skin: denies: Rash Musculoskeletal: denies: Neck pain, Back pain, Extremity pain Neurologic: reports: Generalized weakness. denies: Focal weakness, Numbness PD PAST MEDICAL HISTORY - Past Medical History Past Medical History: Yes Cardiovascular: Hypertension, High cholesterol, Arrhythmia Respiratory: None Neuro: None Endocrine/Autoimmune: HyPOthyroidism GI: GERD, Other : None HEENT: Chronic vision loss Psych: Depression Musculoskeletal: Gout Derm: None - Past Surgical History Past Surgical History: Yes General: Colonoscopy, EGD Ortho: Spine surgery, Other HEENT: Cataracts - Present Medications Home Medications: Ambulatory Orders Medication Instructions Recorded Confirmed Levothyroxine Sodium 150 mcg PO DAILY 12/20/18 05/07/19 Pantoprazole [Protonix] 40 mg PO QDAC 12/20/18 05/07/19 buPROPion [Wellbutrin Sr] 150 mg PO BID 12/20/18 05/07/19 LORazepam [Lorazepam] 0.5 mg PO Q6H PRN 01/08/19 05/07/19 Lidocaine/Prilocain 2.5% Cream 1 cm TOP PRN PRN #1 tube 01/08/19 05/07/19 [Emla 2.5% Cream] Ondansetron HCl [Zofran] 1 tab PO Q4H PRN #30 tablet 01/08/19 05/07/19 Prochlorperazine Maleate 10 mg PO Q6H PRN #30 tablet 01/08/19 05/07/19 Metoprolol Succinate [Toprol Xl] 25 mg PO DAILY tablet 02/28/19 05/07/19 Megestrol Acetate 800 mg PO DAILY 03/20/19 05/07/19 Baclofen 10 mg PO DAILY 04/17/19 05/07/19 Colchicine 0.6 mg PO TID PRN #15 tablet 04/21/19 05/07/19 Oxycodone HCl/Acetaminophen 1 - 2 each PO Q6H PRN #25 tablet 04/21/19 05/07/19 [Percocet 5-325 mg Tablet] Dronabinol 10 mg PO BID 05/14/19 05/14/19 Metoclopramide [Reglan] 10 mg PO TID 05/14/19 05/14/19 - Allergies Allergies/Adverse Reactions: Allergies Allergy/AdvReac Type Severity Reaction Status Date / Time No Known Drug Allergies Allergy Verified 05/13/19 22:33 - Social History Does the pt smoke?: No Smoking Status: Never smoker Does the pt drink ETOH?: No Does the pt have substance abuse?: No - Immunizations Immunizations are current?: Yes - POLST Patient has POLST: No POLST Status: Full Code PD ED PE NORMAL - Vitals Vital signs reviewed: Yes (tachy and hypertetensive with low grade fever) - General General: Alert and oriented X 3, Well developed/nourished, Other (appears with blunted affect and has delay in execution of motor commands. ) - HEENT HEENT: Atraumatic, PERRL, EOMI, Other (parched mucous membranes. ) - Neck Neck: Supple, no meningeal sign, No bony TTP - Cardiac Cardiac: Other (tachy with loud 2nd sound ) - Respiratory Respiratory: No respiratory distress, Clear bilaterally - Abdomen Abdomen: Soft, Non tender - Back Back: No CVA TTP, No spinal TTP - Derm Derm: Normal color, Warm and dry, No rash - Extremities Extremities: No deformity, No edema - Neuro Neuro: Alert and oriented X 3, vacuum worker 2-12 intact, No motor deficit, No sensory deficit, Normal speech Eye Opening: Spontaneous Motor: Obeys Commands Verbal: Oriented GCS Score: 15 - Psych Psych: Other (mood is withdrawn and the affect is flat) Results - Vitals Vitals: Vital Signs - 24 hr 05/13/19 05/13/19 05/13/19 22:27 23:03 23:36 Temperature 36.4 C L 37.7 C H Heart Rate 133 H 122 H 122 H Respiratory 24 16 16 Rate Blood Pressure 101/90 H 148/94 H 163/92 H O2 Saturation 99 98 98 05/14/19 00:46 Temperature Heart Rate 103 H Respiratory 16 Rate Blood Pressure 149/75 H O2 Saturation 99 Oxygen O2 Source Room air - Labs Labs: Laboratory Tests 05/13/19 05/13/19 05/13/19 23:30 23:30 23:30 WBC 1.5 L* RBC 3.51 L Hgb 11.9 L Hct 36.3 L MCV 103.4 H MCH 33.9 H MCHC 32.8 RDW 16.0 H Plt Count 267 MPV 9.4 Neut # (Auto) Not Reportable Lymph # (Auto) Not Reportable Meriwether # (Auto) Not Reportable Eos # (Auto) Not Reportable Baso # (Auto) Not Reportable Absolute Nucleated RBC Not Reportable Total Counted 100 Band Neuts % (Manual) 2 Abnorm Lymph % (Manual) 0 Myelocytes % 1 H Nucleated RBC % Not Reportable Neutrophils # (Manual) 0.2 L* Lymphocytes # (Manual) 0.9 L Monocytes # (Manual) 0.3 Eosinophils # (Manual) 0.0 Basophils # (Manual) 0.0 Differential Comment MANUAL DIFFERENTIAL WBC Morphology NORMAL APPEARANCE Platelet Estimate NORMAL (130-450,000) Platelet Morphology NORMAL APPEARANCE RBC Morph Micro Appear 1+ OVALOCYTES PT 17.2 H INR 1.5 H APTT 22.6 L Sodium 138 Potassium 3.3 L Chloride 103 Carbon Dioxide 23 Anion Gap 12.0 BUN 22 H Creatinine 1.2 Estimated GFR (MDRD) 60 L Glucose 95 Lactic Acid Calcium 8.9 Total Bilirubin 1.4 H AST 19 ALT 18 Alkaline Phosphatase 53 Total Protein 5.9 L Albumin 3.2 Globulin 2.7 Albumin/Globulin Ratio 1.2 Lipase 32 05/13/19 23:30 WBC RBC Hgb Hct MCV MCH MCHC RDW Plt Count MPV Neut # (Auto) Lymph # (Auto) Meriwether # (Auto) Eos # (Auto) Baso # (Auto) Absolute Nucleated RBC Total Counted Band Neuts % (Manual) Abnorm Lymph % (Manual) Myelocytes % Nucleated RBC % Neutrophils # (Manual) Lymphocytes # (Manual) Monocytes # (Manual) Eosinophils # (Manual) Basophils # (Manual) Differential Comment WBC Morphology Platelet Estimate Platelet Morphology RBC Morph Micro Appear PT INR APTT Sodium Potassium Chloride Carbon Dioxide Anion Gap BUN Creatinine Estimated GFR (MDRD) Glucose Lactic Acid 1.4 Calcium Total Bilirubin AST ALT Alkaline Phosphatase Total Protein Albumin Globulin Albumin/Globulin Ratio Lipase Procedures - IVC sono (time) 0020 Bedside IVC sono: IVC measures (cm) (0.67), IVC collapsed c insp (cm) (complete), Profound dehydration (est 3+ liter deficit) PD MEDICAL DECISION MAKING - ED course Complexity details: reviewed old records, reviewed results, re-evaluated patient, considered differential, d/w patient, d/w family ED course: 68-year-old male undergoing chemotherapy for stage IV esophageal cancer has developed symptoms of profound dehydration and IV saline is begun. He does have low-grade fever and the ANC is 200. He is administered cefepime as well and Dr. Boudreaux is consulted in the case and will admit the patient to the hospital. Departure - Departure Disposition: [facility] DC/Xfer Clinical Impression: Esophageal cancer, stage IV, Dehydration, Fever and neutropenia Neutropenia Qualifiers: Neutropenia type: secondary to cancer chemotherapy Qualified Code(s): D70.1 - Agranulocytosis secondary to cancer chemotherapy; T45.1X5A - Adverse effect of antineoplastic and immunosuppressive drugs, initial encounter
[2019-05-14 00:19] LABS: BAND NEUTROPHILS % (MANUAL) 2 %; LYMPHOCYTES # (MANUAL) 0.9 10^3/uL (1.5-3.5); LYMPHOCYTES % (MANUAL) 62 %; MYELOCYTES % (MANUAL) 1 %
--- NOTE | 2019-05-14 00:27 | XRAY Report ---
Reason: tachycardia Procedure Date: 05/13/2019 Accession Number: [id number] / [id number] Procedure: XR - Chest 1 View X-Ray CPT Code: 94345 FULL RESULT: EXAM: CHEST RADIOGRAPHY EXAM DATE: 05/13/2019 11:44 PM. CLINICAL HISTORY: Tachycardia. COMPARISON: CHEST 1 VIEW 01/07/2019 8:53 AM. TECHNIQUE: 1 view. FINDINGS: Lungs/Pleura: No dense consolidation. No large effusion or pneumothorax. No pulmonary edema. Note that nodules seen on prior chest CT of 03/13/2019 are not visible by radiograph. Mediastinum: Heart and mediastinal contours are unremarkable. Other: None. IMPRESSION: No acute radiographic pulmonary abnormalities. RADIA
[2019-05-14] MEDS ORDERED: SODIUM CHLORIDE 0.9% 1,000 ML IV ONE (00:28)
[2019-05-14 00:40] LABS: NEUTROPHILS % (MANUAL) 13 %
[2019-05-14 00:41] LABS: MONOCYTES # (MANUAL) 0.3 10^3/uL (0.0-1.0)
[2019-05-14 00:42] LABS: DIFFERENTIAL COMMENT MANUAL DIFFERENTIAL; PLATELET ESTIMATE, MANUAL NORMAL (130-450,000) (NORMAL); PLATELET MORPHOLOGY NORMAL APPEARANCE (NORMAL)
[2019-05-14 00:45] LABS: NEUTROPHILS # (MANUAL) 0.2 10^3/uL (1.5-6.6)
[2019-05-14] MEDS ORDERED: CEFEPIME 1 GM in SODIUM CHLORIDE 0.9% MINIBAG 100 ML IV STA ×2 (00:57→01:20)
[2019-05-14] MEDS ORDERED: ACETAMINOPHEN 325 MG TABLET PO PRN (01:11)
[2019-05-14] MEDS ORDERED: METOCLOPRAMIDE 10 MG/2 ML VIAL IVP STA (01:17)
--- NOTE | 2019-05-14 01:53 | HISTORY & PHYSICAL EXAMINATION ---
Chief Complaint - Chief Complaint Chief Complaint: poor oral intake dehydration History of Present Illness - Admitted From Admitted From:: [facility] ED - History Obtained From Records Reviewed: yes History obtained from: patient - History of Present Illness HPI Comment/Other: Patient seen on 05/14/19 at 01:30 am Patient is a 68 y/o male with Stage IV esophageal cancer. He sees Dr Bonilla at the [facility] and is receiving FOLFOX chemotherapy with last treatment given on 05/07/19. He presented to the ED today with complain of poor oral intake due to decreased appetite. He denies pain with eating/swallowing. He last attempted to eat something last night (cereal). As a result of the poor appetite, he is very dehydrated. His oral mucosa appears dry and his lips are parched/chapped. He has tried Megace for appetite improvement with minimal and short-lasting effect. It is reported that he was just started on Marinol. He was tachycardic with a heart rate in the 120's. He has been unable to produce a urine sample as a result of dehydration. He was found to have a temperature of 37.7C and an absolute neutrophil count of 200. At bedside he appeared uncomfortable. He was having significant hiccups which he said have been going on for about a month and usually cause some abdominal pain. He denied chest pain. He is dyspneic with exertion like going up a flight of stair. He has been nauseous and vomited today. As a result of his presentation, he is being admitted for further management. History - Past Medical History Cardiovascular: reports: Hypertension, High cholesterol, Arrhythmia Respiratory: reports: None Neuro: reports: None Endocrine/Autoimmune: reports: HyPOthyroidism GI: reports: GERD, Other (esophageal cancer) : reports: None HEENT: reports: Chronic vision loss Psych: reports: Depression Musculoskeletal: reports: Gout Derm: reports: None MRSA Hx?: No - Past Surgical History General: reports: Colonoscopy, EGD Ortho: reports: Spine surgery, Other (achiles tendon surgery (right foot) after Cipro use) HEENT: reports: Cataracts - Family & Social History Family History Comment/Other: pt is living with at [place]. Family history was reviewed and found to be negative for any significant disease processes Living arrangement: At home Living Situation: With spouse/s.o. Social History Notes: He denies tobacco, alcohol or illicit drug use - POLST Patient has POLST: No POLST Status: Full Code Meds/Allgy - Home Medications Home Medications: Ambulatory Orders Medication Instructions Recorded Confirmed Levothyroxine Sodium 150 mcg PO DAILY 12/20/18 05/07/19 Pantoprazole [Protonix] 40 mg PO QDAC 12/20/18 05/07/19 buPROPion [Wellbutrin Sr] 150 mg PO BID 12/20/18 05/07/19 LORazepam [Lorazepam] 0.5 mg PO Q6H PRN 01/08/19 05/07/19 Lidocaine/Prilocain 2.5% Cream 1 cm TOP PRN PRN #1 tube 01/08/19 05/07/19 [Emla 2.5% Cream] Ondansetron HCl [Zofran] 1 tab PO Q4H PRN #30 tablet 01/08/19 05/07/19 Prochlorperazine Maleate 10 mg PO Q6H PRN #30 tablet 01/08/19 05/07/19 Metoprolol Succinate [Toprol Xl] 25 mg PO DAILY tablet 02/28/19 05/07/19 Megestrol Acetate 800 mg PO DAILY 03/20/19 05/07/19 Baclofen 10 mg PO DAILY 04/17/19 05/07/19 Colchicine 0.6 mg PO TID PRN #15 tablet 04/21/19 05/07/19 Oxycodone HCl/Acetaminophen 1 - 2 each PO Q6H PRN #25 tablet 04/21/19 05/07/19 [Percocet 5-325 mg Tablet] Dronabinol 10 mg PO BID 05/14/19 05/14/19 Metoclopramide [Reglan] 10 mg PO TID 05/14/19 05/14/19 - Allergies Allergies/Adverse Reactions: Allergies Allergy/AdvReac Type Severity Reaction Status Date / Time No Known Drug Allergies Allergy Verified 05/13/19 22:33 Review of Systems - Constitutional Constitutional: reports: Fatigue, Fever, Chills, Poor appetite, Weight loss - Eyes Eyes: denies: Pain, Blurred vision, Vision loss, Dipolpia - Ears, Nose & Throat Ears, Nose & Throat: denies: Vertigo, Nasal pain, Nosebleeds, Sore throat - Cardiovascular Cariovascular: reports: Palpitations, Exertional dyspnea. denies: Chest pain, Edema - Respiratory Respiratory: denies: Cough, Wheezing, Snoring, SOB at rest - Gastrointestinal Gastrointestinal: reports: Abdominal pain, Nausea, Vomiting, Reflux/heartburn, Poor appetite. denies: Abdominal distention, Constipation, Diarrhea, Black stools, Coffee grounds emesis - Genitourinary Genitourinary: denies: Dysuria, Frequency, Urgency, Hematuria, Incontinence, Flank pain - Musculoskeletal Musculoskeletal: denies: Muscle pain, Back pain, Muscle aches, Stiffness - Integumentary Integumentary: denies: Rash, Pruritis, Lesions, Dryness - Neurological Neurological: reports: General weakness, Dizziness. denies: Focal weakness, Headache, Numbness, Memory problems - Psychiatric Psychiatric: reports: Depression, Anxiety Prior Level of Functionality: Is independent of activities of daily living Exam - Vital Signs Vital Signs: Vital Signs x48h Temp Pulse Resp BP Pulse Ox 05/14/19 01:30 112 H 16 152/79 H 98 05/14/19 00:46 103 H 16 149/75 H 99 05/13/19 23:36 122 H 16 163/92 H 98 05/13/19 23:03 37.7 C H 122 H 16 148/94 H 98 05/13/19 22:27 36.4 C L 133 H 24 101/90 H 99 - Physical Exam General Appearance: positive: Alert, Moderate distress Eyes Bilateral: positive: Normal inspection, PERRL, EOMI. negative: Conjunctivae nml, No scleral icterus ENT: positive: Dry mucous membranes. negative: Purulent nasal drainage Neck: positive: No JVD, Trachea midline Respiratory: positive: Chest non-tender, No respiratory distress, Breath sounds nml. negative: Wheezes, Rales, Rhonchi Cardiovascular: positive: No murmur, Tachycardia Abdomen: positive: Non-tender, No organomegaly, Nml bowel sounds, No distention. negative: Guarding, Rebound Back: positive: Nml inspection Skin: positive: Color nml, No rash. negative: Diaphoresis Extremities: positive: Nml appearance, No pedal edema, Other (foot brace on right leg) Neurologic/Psychiatric: positive: Oriented x3, CN's nml (2-12) Conclusion/Plan - Problem List (1) Dehydration Conclusion/Plan: 2/2 Decreased appetite and poor po intake Patient give fluid boluses in the ED Will continue NS+20mEq KCl at 150ml/hr Patient taking Marinol (2) Fever and neutropenia Conclusion/Plan: ANC 200 Blood cultures drawn. Cefepime 2g q12hr ordered Will obtain urine sample when patient able to (3) Esophageal cancer, stage IV Conclusion/Plan: Patient follows with Dr Bonilla at the [facility] [place] [facility] Last had chemotherapy (FOLFOX) on 05/07/[address] Nicole at the time Per oncology note, he is scheduled for a follow up with GI oncology at [facility] in May. At which time a CT of the abd/pelvis is planned (4) HTN (hypertension) Conclusion/Plan: On metoprolol Qualifiers: Hypertension type: essential hypertension Qualified Code(s): I10 - Essential (primary) hypertension (5) Hypothyroidism Conclusion/Plan: On synthroid (6) Depression Conclusion/Plan: On wellbutrin (7) GERD (gastroesophageal reflux disease) Conclusion/Plan: On protonix (8) Anxiety Conclusion/Plan: On ativan (9) Back pain Conclusion/Plan: On baclofen and percocet Qualifiers: Back pain location: low back pain Chronicity: chronic Back pain laterality: unspecified - Lab Results Fish Bones: 05/13/19 23:30 05/13/19 23:30 - Diagnostic Imaging Results Diagnostic Imaging Results: positive: Final report reviewed Core Measures - Anticipated LOS I expect patient to be DC'd or transferred within 96 hours.: Yes - DVT/VTE - Prophylaxis VTE/DVT Device ordered at admit?: Yes VTE/DVT Prophylaxis med ordered at admit?: Yes
[2019-05-14] MEDS ORDERED: NS W/20 MEQ KCL 1,000 ML IV SCH ×2 (02:00→08:19)
[2019-05-14] MEDS: SODIUM CHLORIDE FLUSH 0.9% 10 ML SYRINGE IVP SCH ×2 (02:18→17:18)
[2019-05-14] MEDS: MORPHINE 2 MG/ML CARPUJECT IVP PRN ×5 (02:41→20:07)
[2019-05-14] MEDS: ONDANSETRON 4 MG/2 ML VIAL IVP PRN (02:47)
[2019-05-14] MEDS: SODIUM CHLORIDE FLUSH 0.9% 10 ML SYRINGE IVP PRN ×2 (02:48→06:24)
[2019-05-14 05:18] LABS: BASOPHILS % (AUTO) 0.4 %; EOSINOPHILS % (AUTO) 1.5 %; HGB - HEMOGLOBIN 9.8 g/dL (14.0-18.0); LYMPHOCYTES % (AUTO) 24.9 %; MEAN CORPUSCULAR HEMOGLOBIN 34.1 pg (27.0-31.0); MEAN CORPUSCULAR HGB CONC 33.1 g/dL (32.0-36.0); MEAN CORPUSCULAR VOLUME 103.1 fL (80.0-94.0); MEAN PLATELET VOLUME 9.2 fL (7.4-11.4); MONOCYTES % (AUTO) 17.4 %; NEUTROPHILS % (AUTO) 54.3 %; PLT - PLATELET COUNT 216 10^3/uL (130-450); RED BLOOD COUNT 2.87 10^6/uL (4.70-6.10); RED CELL DISTRIBUTION WIDTH 16.3 % (12.0-15.0); WHITE BLOOD COUNT 2.7 x10^3/uL (4.8-10.8)
[2019-05-14 05:26] LABS: CALCIUM 7.9 mg/dL (8.5-10.3)
[2019-05-14 05:35] LABS: ABNORMAL LYMPHS % (MANUAL) 0 %
[2019-05-14 06:23] LABS: BAND NEUTROPHILS % (MANUAL) 4 %; BASOPHILS % (MANUAL) 1 %; EOSINOPHILS # (MANUAL) 0.1 10^3/uL (0-0.7); LYMPHOCYTES # (MANUAL) 1.2 10^3/uL (1.5-3.5); LYMPHOCYTES % (MANUAL) 44 %; MONOCYTES # (MANUAL) 0.5 10^3/uL (0.0-1.0); NEUTROPHILS # (MANUAL) 0.9 10^3/uL (1.5-6.6); NEUTROPHILS % (MANUAL) 31 %
[2019-05-14] MEDS: PANTOPRAZOLE 40 MG VIAL IVP SCH (06:23)
[2019-05-14 06:26] LABS: RBC MORPHOLOGY (MULTIPLE) NORMAL APPEARANCE (NORMAL)
[2019-05-14 06:27] LABS: DIFFERENTIAL COMMENT MANUAL DIFFERENTIAL; PLATELET ESTIMATE, MANUAL NORMAL (130-450,000) (NORMAL); PLATELET MORPHOLOGY NORMAL APPEARANCE (NORMAL)
[2019-05-14] MEDS: POLYETHYLENE GLYCOL 3350 17 GM PACKET PO SCH (09:26)
[2019-05-14] MEDS: NS W/20 MEQ KCL 1,000 ML IV SCH ×2 (09:26→18:34)
[2019-05-14] MEDS: ENOXAPARIN 40 MG/0.4 ML SYRINGE SUBQ SCH (09:27)
[2019-05-14 10:02] LABS: BILIRUBIN,URINE NEGATIVE (NEGATIVE); GLUCOSE, URINE (UA) NEGATIVE (NEGATIVE); KETONES,URINE (UA) NEGATIVE (NEGATIVE); LEUKOCYTE ESTERASE, URINE NEGATIVE (NEGATIVE); NITRITE,URINE NEGATIVE (NEGATIVE); OCCULT BLOOD,URINE NEGATIVE (NEGATIVE); PH,URINE 5.5 PH (5.0-7.5); PROTEIN,URINE NEGATIVE (NEGATIVE); UROBILINOGEN,URINE 0.2 (NORMAL) E.U./dL (NORMAL)
[2019-05-14 10:04] LABS: CLARITY,URINE CLEAR (CLEAR)
[2019-05-14] MEDS ORDERED: PRILOCAINE TOP PRN (12:41)
[2019-05-14] MEDS ORDERED: LORazepam 0.5 MG TABLET PO PRN (12:41)
[2019-05-14] MEDS ORDERED: COLCHICINE 0.6 MG TABLET PO PRN (12:41)
[2019-05-14] MEDS ORDERED: PROCHLORPERAZINE 5 MG TABLET PO PRN (12:41)
[2019-05-14] MEDS ORDERED: LIDOCAINE TOP PRN (12:41)
[2019-05-14] MEDS ORDERED: MEGESTROL 400 MG/10 ML UDC PO SCH (12:45)
[2019-05-14] MEDS: BACLOFEN 10 MG TABLET PO PRN ×2 (13:14→18:33)
[2019-05-14] MEDS: CEFEPIME 2 GM in SODIUM CHLORIDE 0.9% MINIBAG 100 ML IV SCH (13:16)
[2019-05-14] MEDS: METOPROLOL SUCCINATE 25 MG TABLET PO SCH (17:18)
[2019-05-14] MEDS: DRONABINOL 2.5 MG CAPSULE PO SCH (17:18)
[2019-05-14] MEDS: buPROPion SR 150 MG TABLET PO SCH (20:07)
[2019-05-15 05:53] LABS: BASOPHILS % (AUTO) 0.5 %; EOSINOPHILS % (AUTO) 0.5 %; HGB - HEMOGLOBIN 8.8 g/dL (14.0-18.0); MEAN CORPUSCULAR HEMOGLOBIN 33.6 pg (27.0-31.0); MEAN CORPUSCULAR HGB CONC 31.5 g/dL (32.0-36.0); MEAN CORPUSCULAR VOLUME 106.5 fL (80.0-94.0); MEAN PLATELET VOLUME 9.8 fL (7.4-11.4); MONOCYTES % (AUTO) 15.3 %; NEUTROPHILS % (AUTO) 59.7 %; PLT - PLATELET COUNT 189 10^3/uL (130-450); RED BLOOD COUNT 2.62 10^6/uL (4.70-6.10); RED CELL DISTRIBUTION WIDTH 16.4 % (12.0-15.0); WHITE BLOOD COUNT 4.2 x10^3/uL (4.8-10.8)
[2019-05-15 06:01] LABS: ABNORMAL LYMPHS % (MANUAL) 0 %
[2019-05-15 06:02] LABS: ALBUMIN 2.1 g/dL (3.2-5.5); BILIRUBIN,TOTAL 0.7 mg/dL (0.2-1.0); CALCIUM 7.9 mg/dL (8.5-10.3); TOTAL PROTEIN 4.3 g/dL (6.7-8.2)
[2019-05-15] MEDS: SODIUM CHLORIDE FLUSH 0.9% 10 ML SYRINGE IVP SCH ×3 (06:25→17:35)
[2019-05-15] MEDS: PANTOPRAZOLE 40 MG VIAL IVP SCH (06:26)
[2019-05-15] MEDS: CEFEPIME 2 GM in SODIUM CHLORIDE 0.9% MINIBAG 100 ML IV SCH ×2 (06:26→15:08)
[2019-05-15] MEDS: DRONABINOL 2.5 MG CAPSULE PO SCH (06:26)
[2019-05-15] MEDS: LEVOTHYROXINE 75 MCG TABLET PO SCH (06:26)
[2019-05-15] MEDS: BACLOFEN 10 MG TABLET PO PRN ×2 (06:51→20:31)
[2019-05-15 07:19] LABS: BAND NEUTROPHILS % (MANUAL) 3 %; BASOPHILS % (MANUAL) 1 %; LYMPHOCYTES # (MANUAL) 1.4 10^3/uL (1.5-3.5); LYMPHOCYTES % (MANUAL) 33 %; MONOCYTES # (MANUAL) 0.4 10^3/uL (0.0-1.0); NEUTROPHILS # (MANUAL) 2.4 10^3/uL (1.5-6.6); NEUTROPHILS % (MANUAL) 54 %
[2019-05-15 07:21] LABS: PLATELET ESTIMATE, MANUAL NORMAL (130-450,000) (NORMAL); PLATELET MORPHOLOGY NORMAL APPEARANCE (NORMAL); RBC MORPHOLOGY (MULTIPLE) NORMAL APPEARANCE (NORMAL)
[2019-05-15 07:22] LABS: DIFFERENTIAL COMMENT MANUAL DIFFERENTIAL
[2019-05-15 07:57] LABS: ABSOLUTE RETICS # AUTO 0.008 10^6/uL (0.020-0.110); RED BLOOD COUNT 2.46 10^6/uL (4.70-6.10)
[2019-05-15] MEDS ORDERED: SODIUM CHLORIDE 0.9% 1,000 ML IV SCH (08:00)
[2019-05-15 08:34] LABS: FERRITIN 728.1 ng/mL (23.9-336.2)
[2019-05-15 08:58] LABS: % IRON SATURATION 15 % (20-50); IRON 30 ug/dL (45-182); TOTAL IRON BINDING CAPACITY 203 ug/dL (250-450); TRANSFERRIN 145 mg/dL (180-329)
[2019-05-15] MEDS: buPROPion SR 150 MG TABLET PO SCH ×2 (09:46→20:27)
[2019-05-15] MEDS: ENOXAPARIN 40 MG/0.4 ML SYRINGE SUBQ SCH (09:46)
[2019-05-15] MEDS: METOPROLOL SUCCINATE 25 MG TABLET PO SCH ×2 (09:46→17:35)
[2019-05-15] MEDS: ALLOPURINOL 100 MG TABLET PO SCH (09:46)
[2019-05-15] MEDS: POLYETHYLENE GLYCOL 3350 17 GM PACKET PO SCH (09:47)
--- NOTE | 2019-05-15 12:04 | Discharge Plan ---
Discharge Plan Problem Reviewed?: Yes Disposition: Home, Self Care Condition: Poor Prescriptions: Dronabinol [Marinol] 2.5 mg PO BIDAC #20 capsule Ferrous Sulfate 325 mg PO DAILY #15 tablet Diet: Regular Activity Restrictions: Activity as Tolerated Shower Restrictions: No (fall precaution) Instruction Topics: Dronabinol THC capsules, Anemia Iron Deficiency Ch Health Concerns: please have CBC in one week to monitor your pancytopenia Plan of Treatment: Marinol for your appetite stimulant, and iron of your iron deficiency Care Goals: stabilization of your medical condition Assessment: you have no fever, WBC increase to 4.2, blood culture was negative for ba cteremia Additional Instructions or Follow Up instructions: you may followup your PCP in one week and have CBC test to monitor your pancytopenia. your oncologist DR. Oliveros was called and left message to her nurse, please make an appointment to see your oncologist as out-pt. Should your symptoms return or worsen, you may present ER, call 911 or your PCP for help. No Smoking: If you smoke, Please STOP! Call for help. Follow-up with: Neftali Duran MD [Primary Care Provider] -
[2019-05-15] MEDS: FERROUS SULFATE 325 MG TABLET PO SCH ×2 (12:27→17:35)
--- NOTE | 2019-05-15 12:31 | DISCHARGE SUMMARY ---
Discharge Summary Discharge Date: 05/15/19 Discharging Provider: PORTER Primary Care Provider: Dr. Duran Condition at Discharge: Poor Discharge Disposition: 01 Home, Self Care Discharge Facility Name: home - DIAGNOSES Discharge Diagnoses with Status of Each Condition: I called Dr Oliveros and discussed about pt's continuing care plan. I also discussed with pt about his continuing care plan after I talked with Dr. Oliveros. I answered all pt's concerns and questions. - ALLERGIES Allergies/Adverse Reactions: Allergies Allergy/AdvReac Type Severity Reaction Status Date / Time No Known Drug Allergies Allergy Verified 05/13/19 22:33 - MEDICATIONS Home Medications: Ambulatory Orders Medication Instructions Recorded Confirmed Levothyroxine Sodium 150 mcg PO DAILY 12/20/18 05/14/19 Pantoprazole [Protonix] 40 mg PO QDAC 12/20/18 05/14/19 buPROPion [Wellbutrin Sr] 150 mg PO BID 12/20/18 05/14/19 LORazepam [Lorazepam] 0.5 mg PO Q6H PRN 01/08/19 05/14/19 Lidocaine/Prilocain 2.5% Cream 1 cm TOP PRN PRN #1 tube 01/08/19 05/14/19 [Emla 2.5% Cream] Prochlorperazine Maleate 10 mg PO Q6H PRN #30 tablet 01/08/19 05/14/19 Megestrol Acetate 800 mg PO DAILY 03/20/19 05/14/19 Baclofen 10 mg PO Q6H PRN 04/17/19 05/14/19 Colchicine 0.6 mg PO TID PRN #15 tablet 04/21/19 05/14/19 Allopurinol 100 mg PO DAILY 05/14/19 05/14/19 Dronabinol 10 mg PO BID 05/14/19 05/14/19 Metoclopramide [Reglan] 10 mg PO 0700,1100,1600 05/14/19 05/14/19 Metoprolol Succinate [Toprol Xl] 25 mg PO BIDWM 05/14/19 05/14/19 Ondansetron HCl [Zofran] 4 mg PO Q4H PRN 05/14/19 05/14/19 Dronabinol [Marinol] 2.5 mg PO BIDAC #20 capsule 05/15/19 Ferrous Sulfate 325 mg PO DAILY #15 tablet 05/15/19 - LABS Result Diagrams: 05/15/19 05:16 05/15/19 05:16
[2019-05-15] MEDS ORDERED: CALCIUM CARBONATE CHEW 500 MG TABLET PO PRN (14:53)
[2019-05-15] MEDS: ONDANSETRON 4 MG/2 ML VIAL IVP PRN (14:59)
[2019-05-15] MEDS: SODIUM CHLORIDE FLUSH 0.9% 10 ML SYRINGE IVP PRN (14:59)
--- NOTE | 2019-05-15 15:47 | PROVIDER PROGRESS NOTE ---
Subjective - Prog Note Date Prog Note Date: 05/15/19 - Subjective Pt reports feeling: Worse Subjective: I called pt's oncologist, doctor agree pt can be d/c. pt was d/c at the way to go to home but pt complain of nausea. nurse gave pt zofran but pt still complain nausea then pt had vomiting. Current Medications - Current Medications Current Medications: Active Medications Acetaminophen (Tylenol) 650 mg PO Q4HR PRN PRN Reason: Pain 1 to 4 Allopurinol (Zyloprim) 100 mg PO DAILY [facility] Last Admin: 05/15/19 09:46 Dose: 100 mg Baclofen (Lioresal) 10 mg PO Q6H PRN PRN Reason: Hiccups Last Admin: 05/15/19 06:51 Dose: 10 mg Bupropion HCl (Wellbutrin Sr) 150 mg PO BID [facility] Last Admin: 05/15/19 09:46 Dose: 150 mg Calcium Carbonate/Glycine (Tums) 500 mg PO BID PRN PRN Reason: Heartburn Last Admin: 05/15/19 14:58 Dose: 500 mg Colchicine (Colcrys) 0.6 mg PO TID PRN PRN Reason: PAIN Dronabinol (Marinol) 2.5 mg PO BIDAC [facility] Last Admin: 05/15/19 06:26 Dose: 2.5 mg Enoxaparin Sodium (Lovenox) 40 mg SUBQ DAILY [facility] Last Admin: 05/15/19 09:46 Dose: 40 mg Ferrous Sulfate (Feosol) 325 mg PO BIDWM [facility] Last Admin: 05/15/19 12:27 Dose: 325 mg Cefepime HCl 2 gm/ Sodium (Chloride) 100 mls @ 200 mls/hr IV Q12H [facility] Last Admin: 05/15/19 15:08 Dose: Not Given Sodium Chloride (Normal Saline 0.9%) 1,000 mls @ 100 mls/hr IV .Q10H [facility] Stop: 05/16/19 11:43 Levothyroxine Sodium (Synthroid) 150 mcg PO QDAC [facility] Last Admin: 05/15/19 06:26 Dose: 150 mcg Lorazepam (Ativan) 0.5 mg PO Q6H PRN PRN Reason: Nausea / Vomiting Metoprolol Succinate (Toprol Xl) 25 mg PO BIDWM [facility] Last Admin: 05/15/19 09:46 Dose: 25 mg Morphine Sulfate (Morphine (Carpuject)) 2 mg IVP Q4H PRN PRN Reason: PAIN Last Admin: 05/14/19 20:07 Dose: 2 mg Ondansetron HCl (Zofran Inj) 4 mg IVP Q6HR PRN PRN Reason: Nausea / Vomiting Last Admin: 05/15/19 14:59 Dose: 4 mg Pantoprazole Sodium (Protonix) 40 mg IVP QDAC [facility] Last Admin: 05/15/19 06:26 Dose: 40 mg Polyethylene Glycol (Miralax) 17 gm PO DAILY [facility] Last Admin: 05/15/19 09:47 Dose: Not Given Prochlorperazine Maleate (Compazine) 10 mg PO Q6H PRN PRN Reason: Nausea / Vomiting Sodium Chloride (Normal Saline Flush 0.9%) 10 ml IVP PRN PRN PRN Reason: NEEDED PER PROVIDER ORDERS Last Admin: 05/15/19 14:59 Dose: 10 ml Sodium Chloride (Normal Saline Flush 0.9%) 10 ml IVP 0100,0900,1700 [facility] Last Admin: 05/15/19 10:12 Dose: 10 ml Levothyroxine Sodium 150 mcg PO DAILY 12/20/18 Pantoprazole [Protonix] 40 mg PO QDAC 12/20/18 buPROPion [Wellbutrin Sr] 150 mg PO BID 12/20/18 LORazepam [Lorazepam] 0.5 mg PO Q6H PRN 01/08/19 Megestrol Acetate 800 mg PO DAILY 03/20/19 Baclofen 10 mg PO Q6H PRN 04/17/19 Allopurinol 100 mg PO DAILY 05/14/19 Dronabinol 10 mg PO BID 05/14/19 Metoclopramide [Reglan] 10 mg PO 0700,1100,1600 05/14/19 Metoprolol Succinate [Toprol Xl] 25 mg PO BIDWM 05/14/19 Ondansetron HCl [Zofran] 4 mg PO Q4H PRN 05/14/19 Objective - Vital Signs/Intake & Output Reviewed Vital Signs: Yes Vital Signs: Vital Signs x48h Temp Pulse Resp BP Pulse Ox 05/15/19 13:00 36.6 C 71 16 137/74 H 97 05/15/19 09:00 36.7 C 70 16 125/78 99 Intake & Output: Intake & Output 05/12/19 05/13/19 05/14/19 05/15/19 23:59 23:59 23:59 23:59 Intake Total 3950 2720 Output Total 450 Balance 3500 2720 - Objective General Appearance: positive: No acute distress, Alert. negative: Lethargic Eyes Bilateral: positive: Normal inspection, PERRL, No lid inflammation, Conjunctivae nml ENT: positive: ENT inspection nml, Pharynx nml, No signs of dehydration. negative: Purulent nasal drainage, Pharyngeal erythema, Oral lesions Neck: positive: Nml inspection, Thyroid nml, No JVD, Trachea midline. negative: Thyromegaly, Lymphadenopathy (R), Lymphadenopathy (L), Stiff neck, Swelling/bruising, Tracheal deviation Respiratory: positive: Chest non-tender, No respiratory distress, Breath sounds nml. negative: Wheezes, Rales, Rhonchi Cardiovascular: positive: Regular rate & rhythm, No murmur, No gallop. negative: Irregularly irregular, Extrasystoles, Tachycardia, Bradycardia, JVD present, Systolic murmur, Diastolic murmur Peripheral Pulses: 2+ Radial (R), 2+ Radial (L), 2+ Dorsalis pedis (R), 2+ Dorsalis pedis (L) Abdomen: positive: Non-tender, No organomegaly, Nml bowel sounds, No distention. negative: Tenderness, Guarding, Rebound Back: positive: Nml inspection. negative: CVA tenderness (R), CVA tenderness (L) Skin: positive: Color nml, No rash, Warm, Dry. negative: Cyanosis, Diaphoresis, Pallor Extremities: positive: Non-tender, Full ROM, Nml appearance. negative: Calf tenderness, Joint swelling, Donnell's sign/cords Neurologic/Psychiatric: positive: Oriented x3, Motor nml, Sensation nml, Mo od/affect nml. negative: Weakness, Sensory loss, Facial droop, Slurred/abnml speech, Depressed mood/affect - Lab Results Fish Bones: 05/16/19 05:30 05/16/19 05:30 Other Labs: Lab Results x24hrs 05/15/19 05/15/19 05/15/19 Range/Units 05:16 05:16 05:16 WBC (4.8-10.8) x10^3/uL RBC (4.70-6.10) 10^6/uL Hgb (14.0-18.0) g/dL Hct (42.0-52.0) % MCV (80.0-94.0) fL MCH (27.0-31.0) pg MCHC (32.0-36.0) g/dL RDW (12.0-15.0) % Plt Count (130-450) 10^3/uL MPV (7.4-11.4) fL Reticulocyte % (Auto) (0.5-2.3) % Neut # (Auto) Lymph # (Auto) Owen # (Auto) Eos # (Auto) Baso # (Auto) Absolute Nucleated RBC Total Counted Band Neuts % (Manual) (0 - 10) % Abnorm Lymph % (Manual) % Nucleated RBC % Neutrophils # (Manual) (1.5-6.6) 10^3/uL Lymphocytes # (Manual) (1.5-3.5) 10^3/uL Monocytes # (Manual) (0.0-1.0) 10^3/uL Eosinophils # (Manual) (0-0.7) 10^3/uL Basophils # (Manual) (0-0.1) 10^3/uL Differential Comment WBC Morphology (NORMAL) Platelet Estimate (NORMAL) Platelet Morphology (NORMAL) RBC Morph Micro Appear (NORMAL) Absolute Retic (0.020-0.110) 10^6/uL Sodium (135-145) mmol/L Potassium (3.5-5.0) mmol/L Chloride (101-111) mmol/L Carbon Dioxide (21-32) mmol/L Anion Gap (6-13) BUN (6-20) mg/dL Creatinine (0.6-1.2) mg/dL Estimated GFR (MDRD) (>89) Glucose (70-100) mg/dL Calcium (8.5-10.3) mg/dL Iron 30 L (45-182) ug/dL TIBC 203 L (250-450) ug/dL % Saturation 15 L (20-50) % Transferrin 145 L (180-329) mg/dL Ferritin 728.1 H (23.9-336.2) ng/mL Total Bilirubin (0.2-1.0) mg/dL AST (10-42) IU/L ALT (10-60) IU/L Alkaline Phosphatase (42-121) IU/L Lactate Dehydrogenase 171 (91-225) IU/L Total Protein (6.7-8.2) g/dL Albumin (3.2-5.5) g/dL Globulin (2.1-4.2) g/dL Albumin/Globulin Ratio (1.0-2.2) Vitamin B12 354 (180-914) pg/mL 05/15/19 05/15/19 05/15/19 Range/Units 05:16 05:16 05:16 WBC 4.2 L (4.8-10.8) x10^3/uL RBC 2.46 L 2.62 L (4.70-6.10) 10^6/uL Hgb 8.8 L (14.0-18.0) g/dL Hct 27.9 L (42.0-52.0) % MCV 106.5 H (80.0-94.0) fL MCH 33.6 H (27.0-31.0) pg MCHC 31.5 L (32.0-36.0) g/dL RDW 16.4 H (12.0-15.0) % Plt Count 189 (130-450) 10^3/uL MPV 9.8 (7.4-11.4) fL Reticulocyte % (Auto) 0.34 L (0.5-2.3) % Neut # (Auto) Not Reportable Lymph # (Auto) Not Reportable Owen # (Auto) Not Reportable Eos # (Auto) Not Reportable Baso # (Auto) Not Reportable Absolute Nucleated RBC Not Reportable Total Counted 100 Band Neuts % (Manual) 3 (0 - 10) % Abnorm Lymph % (Manual) 0 % Nucleated RBC % Not Reportable Neutrophils # (Manual) 2.4 (1.5-6.6) 10^3/uL Lymphocytes # (Manual) 1.4 L (1.5-3.5) 10^3/uL Monocytes # (Manual) 0.4 (0.0-1.0) 10^3/uL Eosinophils # (Manual) 0.0 (0-0.7) 10^3/uL Basophils # (Manual) 0.0 (0-0.1) 10^3/uL Differential Comment MANUAL DIFFERENTIAL WBC Morphology NORMAL APPEARANCE (NORMAL) Platelet Estimate NORMAL (130-450,000) (NORMAL) Platelet Morphology NORMAL APPEARANCE (NORMAL) RBC Morph Micro Appear NORMAL APPEARANCE (NORMAL) Absolute Retic 0.008 L (0.020-0.110) 10^6/uL Sodium 139 (135-145) mmol/L Potassium 3.9 (3.5-5.0) mmol/L Chloride 113 H (101-111) mmol/L Carbon Dioxide 21 (21-32) mmol/L Anion Gap 5.0 L (6-13) BUN 16 (6-20) mg/dL Creatinine 1.0 (0.6-1.2) mg/dL Estimated GFR (MDRD) 74 L (>89) Glucose 110 H (70-100) mg/dL Calcium 7.9 L (8.5-10.3) mg/dL Iron (45-182) ug/dL TIBC (250-450) ug/dL % Saturation (20-50) % Transferrin (180-329) mg/dL Ferritin (23.9-336.2) ng/mL Total Bilirubin 0.7 (0.2-1.0) mg/dL AST 15 (10-42) IU/L ALT 14 (10-60) IU/L Alkaline Phosphatase 37 L (42-121) IU/L Lactate Dehydrogenase (91-225) IU/L Total Protein 4.3 L (6.7-8.2) g/dL Albumin 2.1 L (3.2-5.5) g/dL Globulin 2.2 (2.1-4.2) g/dL Albumin/Globulin Ratio 1.0 (1.0-2.2) Vitamin B12 (180-914) pg/mL ABX Reporting Has patient been on IV antibiotics over the past 48 hours?: Yes Sepsis Event Note (H) - Evaluation Current Stage of Sepsis: Ruled out Assessment/Plan - Problem List (1) Dehydration Impression: (1) nausea and vomiting pt report nausea, and pt had vomiting. pt is status post of chemotherapy IVF of NS, lab monitor and vital monitor antiemesis PRN (2) Dehydration Conclusion/Plan: 05/15 resolved, creatinine as his baseline 1.0 Decreased appetite and poor po intake Patient give fluid boluses in the ED Will continue NS+20mEq KCl at 150ml/hr Patient taking Marinol (3) Fever and neutropenia Conclusion/Plan: 05/15 no fever, WBC increase to 4.4 continue vital monitor (4) Esophageal cancer, stage IV Conclusion/Plan: 05/16 I called pt's oncologist Dr. Oliveros at [facility]. she agreed pt can be safely discharged and followup oncologist. but pt had nausea and vomiting again, will continue symptomatic manage in the hospital now Patient follows with Dr Bonilla at the [facility] Last had chemotherapy (FOLFOX) on 05/07/[address] Nicole at the time Per oncology note, he is scheduled for a follow up with GI oncology at [facility] in May. At which time a CT of the abd/pelvis is planned (5) HTN (hypertension) Conclusion/Plan: On metoprolol Qualifiers: Hypertension type: essential hypertension Qualified Code(s): I10 - Essent ial (primary) hypertension (6) Hypothyroidism Conclusion/Plan: On synthroid (7) Depression Conclusion/Plan: On wellbutrin (8) GERD (gastroesophageal reflux disease) Conclusion/Plan: On protonix (9) Anxiety Conclusion/Plan: On ativan (10) Back pain Conclusion/Plan: On baclofen and percocet (11) anemia
[2019-05-15] MEDS ORDERED: PROCHLORPERAZINE 10 MG/2 ML VIAL IVP PRN (16:24)
[2019-05-15] MEDS: MORPHINE 2 MG/ML CARPUJECT IVP PRN ×2 (16:26→20:28)
[2019-05-15] MEDS: SODIUM CHLORIDE 0.9% 1,000 ML IV SCH (16:36)
[2019-05-15] MEDS: BACLOFEN 10 MG TABLET PO SCH (23:32)
[2019-05-16] MEDS: SODIUM CHLORIDE FLUSH 0.9% 10 ML SYRINGE IVP SCH ×2 (01:07→07:06)
[2019-05-16] MEDS: SODIUM CHLORIDE 0.9% 1,000 ML IV SCH (01:19)
[2019-05-16] MEDS: CEFEPIME 2 GM in SODIUM CHLORIDE 0.9% MINIBAG 100 ML IV SCH ×2 (01:19→14:18)
[2019-05-16] MEDS: SODIUM CHLORIDE FLUSH 0.9% 10 ML SYRINGE IVP PRN ×2 (01:28→04:47)
[2019-05-16] MEDS: MORPHINE 2 MG/ML CARPUJECT IVP PRN (01:28)
[2019-05-16] MEDS: BACLOFEN 10 MG TABLET PO SCH ×3 (04:47→15:52)
[2019-05-16] MEDS: ONDANSETRON 4 MG/2 ML VIAL IVP PRN (04:47)
[2019-05-16 05:39] LABS: BASOPHILS % (AUTO) 0.3 %; EOSINOPHILS % (AUTO) 0.3 %; HGB - HEMOGLOBIN 8.9 g/dL (14.0-18.0); LYMPHOCYTES # (AUTO) 1.3 10^3/uL (1.5-3.5); LYMPHOCYTES % (AUTO) 33.4 %; MEAN CORPUSCULAR HEMOGLOBIN 34.2 pg (27.0-31.0); MEAN CORPUSCULAR VOLUME 103.8 fL (80.0-94.0); MEAN PLATELET VOLUME 9.5 fL (7.4-11.4); MONOCYTES # (AUTO) 0.8 10^3/uL (0.0-1.0); NEUTROPHILS # (AUTO) 1.8 10^3/uL (1.5-6.6); NEUTROPHILS % (AUTO) 45.2 %; PLT - PLATELET COUNT 181 10^3/uL (130-450); RED CELL DISTRIBUTION WIDTH 16.2 % (12.0-15.0)
[2019-05-16 05:51] LABS: ALBUMIN 2.3 g/dL (3.2-5.5); ALBUMIN/GLOBULIN RATIO 1.1 (1.0-2.2); BILIRUBIN,TOTAL 0.8 mg/dL (0.2-1.0); TOTAL PROTEIN 4.4 g/dL (6.7-8.2)
[2019-05-16] MEDS ORDERED: DRONABINOL 2.5 MG CAPSULE PO SCH (07:00)
[2019-05-16] MEDS: LEVOTHYROXINE 75 MCG TABLET PO SCH (07:05)
[2019-05-16] MEDS: PANTOPRAZOLE 40 MG VIAL IVP SCH (07:06)
[2019-05-16] MEDS ORDERED: POTASSIUM CHLORIDE 20 MEQ TABLET PO ONE (08:00)
[2019-05-16] MEDS: METOPROLOL SUCCINATE 25 MG TABLET PO SCH (08:47)
[2019-05-16] MEDS: ALLOPURINOL 100 MG TABLET PO SCH (08:47)
[2019-05-16] MEDS: buPROPion SR 150 MG TABLET PO SCH (08:47)
[2019-05-16] MEDS: FERROUS SULFATE 325 MG TABLET PO SCH (08:47)
[2019-05-16] MEDS: POLYETHYLENE GLYCOL 3350 17 GM PACKET PO SCH (08:48)
[2019-05-16] MEDS: ENOXAPARIN 40 MG/0.4 ML SYRINGE SUBQ SCH (08:48)
[2019-05-16] MEDS ORDERED: SACCHAROMYCES BOULARDII 250 MG CAPSULE PO SCH (09:00)
[2019-05-16] MEDS ORDERED: POTASSIUM CHLORIDE 10 MEQ CAPSULE PO ONE (11:00)
[2019-05-16] MEDS ORDERED: SODIUM CHLORIDE FLUSH 0.9% 10 ML SYRINGE ONE (14:17)
[2019-05-16 16:28] VITALS: BP 135/82
--- NOTE | 2019-05-16 16:36 | DISCHARGE SUMMARY ---
Discharge Summary Discharge Date: 05/16/19 Discharging Provider: Arzola Primary Care Provider: Dr. Duran Condition at Discharge: Poor Discharge Disposition: Home, Self Care Discharge Facility Name: home - DIAGNOSES Admission Diagnoses: (1) Dehydration (2) Fever and neutropenia (3) Esophageal cancer, stage IV (4) HTN (hypertension) (5) Hypothyroidism (6) Depression (7) GERD (gastroesophageal reflux disease) (8) Anxiety (9) Back pain Discharge Diagnoses with Status of Each Condition: (1) nausea and vomiting controlled. pt tolerate the diet. pt had chemotherapy for esophagus cancer before he was admitted. pt has home zofran and compazine. (2) Dehydration resolved (3) Fever and neutropenia resolved, no fever. WBC is 4. blood culture is negative. (4) Esophageal cancer, stage IV Conclusion/Plan: 05/16 I called pt's oncologist Dr. Oliveros at [facility]. she agreed pt can be safely discharged and followup oncologist. pt understand and will followup his oncologist care (5) HTN (hypertension) stable (6) Hypothyroidism stable, normal TSH (7) Depression stable, continue home meds, followup his PCP (8) GERD (gastroesophageal reflux disease) stable (9) Anxiety stable (10) Back pain stable, continue home regimen, followup PCP (11) loss of appetite improved. pt has Megace at home - [facility] History of Present Illness: refer from Dr. Parsons's HPI on 05/14/19 Patient seen on 05/14/19 at 01:30 am Patient is a 68 y/o male with Stage IV esophageal cancer. He sees Dr Bonilla at the [facility] and is receiving FOLFOX chemotherapy with last treatment given on 05/07/19. He presented to the ED today with complain of poor oral intake due to decreased appetite. He denies pain with eating/swallowing. He last attempted to eat something last night (cereal). As a result of the poor appetite, he is very dehydrated. His oral mucosa appears dry and his lips are parched/chapped. He has tried Megace for appetite improvement with minimal and short-lasting effect. It is reported that he was just started on Marinol. He was tachycardic with a heart rate in the 120's. He has been unable to produce a urine sample as a result of dehydration. He was found to have a temperature of 37.7C and an absolute neutr ophil count of 200. At bedside he appeared uncomfortable. He was having significant hiccups which he said have been going on for about a month and usually cause some abdominal pain. He denied chest pain. He is dyspneic with exertion like going up a flight of stair. He has been nauseous and vomited today. As a result of his presentation, he is being admitted for further management. - HOSPITAL COURSE Hospital Course: pt was admitted for loss of appetite. pt was also found to have pancytopenia with elevated temperature. pt's blood culture was negative. pt was treated with antibiotics. pt's WBC is up to 4.0 on the d/c day. pt had chemotherapy on 05/07/19 per pt reported. Pt had nausea and vomiting on 05/15/19. pt's symptoms of nausea and vomiting was controlled and tolerated the diet. pt's oncologist was called, and agreed pt can be safely discharged, and followup his oncologist. - ALLERGIES Allergies/Adverse Reactions: Allergies Allergy/AdvReac Type Severity Reaction Status Date / Time No Known Drug Allergies Allergy Verified 05/13/19 22:33 - MEDICATIONS Home Medications: Ambulatory Orders Medication Instructions Recorded Confirmed Levothyroxine Sodium 150 mcg PO DAILY 12/20/18 05/14/19 Pantoprazole [Protonix] 40 mg PO QDAC 12/20/18 05/14/19 buPROPion [Wellbutrin Sr] 150 mg PO BID 12/20/18 05/14/19 LORazepam [Lorazepam] 0.5 mg PO Q6H PRN 01/08/19 05/14/19 Lidocaine/Prilocain 2.5% Cream 1 cm TOP PRN PRN #1 tube 01/08/19 05/14/19 [Emla 2.5% Cream] Prochlorperazine Maleate 10 mg PO Q6H PRN #30 tablet 01/08/19 05/14/19 Megestrol Acetate 800 mg PO DAILY 03/20/19 05/14/19 Baclofen 10 mg PO Q6H PRN 04/17/19 05/14/19 Colchicine 0.6 mg PO TID PRN #15 tablet 04/21/19 05/14/19 Allopurinol 100 mg PO DAILY 05/14/19 05/14/19 Dronabinol 10 mg PO BID 05/14/19 05/14/19 Metoclopramide [Reglan] 10 mg PO 0700,1100,1600 05/14/19 05/14/19 Metoprolol Succinate [Toprol Xl] 25 mg PO BIDWM 05/14/19 05/14/19 Ondansetron HCl [Zofran] 4 mg PO Q4H PRN 05/14/19 05/14/19 Ferrous Sulfate 325 mg PO DAILY #15 tablet 05/15/19 - PHYSICAL EXAM AT DISCHARGE General Appearance: positive: No acute distress, Alert. negative: Lethargic Eyes Bilateral: positive: Normal inspection, PERRL, No lid inflammation, Conjunctivae nml ENT: positive: ENT inspection nml, Pharynx nml, No signs of dehydration. negative: Purulent nasal drainage, Pharyngeal erythema, Oral lesions Neck: positive: Nml inspection, Thyroid nml, No JVD. negative: Trachea midline, Thyromegaly, Lymphadenopathy (R), Lymphadenopathy (L), Stiff neck, Swelling/bruising, Tracheal deviation Respiratory: positive: Chest non-tender, No respiratory distress, Breath sounds nml. negative: Wheezes, Rales, Rhonchi Cardiovascular: positive: Regular rate & rhythm, No murmur, No gallop. negative: Irregularly irregular, Extrasystoles, Tachycardia, Bradycardia, JVD present, Systolic murmur, Diastolic murmur Peripheral Pulses: positive: 2+ Abdomen: positive: Non-tender, No organomegaly, Nml bowel sounds, No distention. negative: Tenderness, Guarding, Rebound Back: positive: Nml inspection. negative: CVA tenderness (R), CVA tenderness (L) Skin: positive: Color nml, No rash, Warm, Dry. negative: Cyanosis, Diaphoresis, Pallor Extremities: positive: Non-tender, Full ROM, Nml appearance. negative: Calf tenderness, Joint swelling, Donnell's sign/cords Neurologic/Psychiatric: positive: Oriented x3, Motor nml, Sensation nml, Mood/affect nml. negative: Weakness, Sensory loss, Facial droop, Slurred/abnml speech, Depressed mood/affect - LABS Result Diagrams: 05/16/19 05:30 05/16/19 05:30 - SEPSIS Current Stage of Sepsis: Ruled out - FOLLOW UP Follow Up: you may followup your PCP in one week and have CBC test to monitor your pancytopenia. your oncologist DR. Oliveros was called. your care plan was discussed with your oncologist. please make an appointment to see your oncologist as out-pt. Should your symptoms return or worsen, you may present ER, call 911 or your PCP for help. - TIME SPENT Time Spent in Discharge (Minutes): 60
== END 2019-05-16 16:06 | disposition home or self-care (01) | DRG 392 ==
LOC: ED 22:19 → OBS 05-14 01:11 → OBSVTOIN 05-15 16:12 → MS2 05-15 20:08
PROVIDERS: ADMIT Internal Medicine; ATTEND Nurse Practitioner Gerontology
DX: R11.2 Nausea with vomiting, unspecified (principal); C15.9 Malignant neoplasm of esophagus, unspecified; D70.1 Agranulocytosis secondary to cancer chemotherapy; T45.1X5A Adverse effect of antineoplastic and immunosuppressive drugs, initial encounter; R50.81 Fever presenting with conditions classified elsewhere; D64.81 Anemia due to antineoplastic chemotherapy; D50.9 Iron deficiency anemia, unspecified; D64.9 Anemia, unspecified; E86.0 Dehydration; I10 Essential (primary) hypertension; E03.9 Hypothyroidism, unspecified; F32.9 Major depressive disorder, single episode, unspecified; K21.9 Gastro-esophageal reflux disease without esophagitis; F41.9 Anxiety disorder, unspecified; M10.9 Gout, unspecified; M54.5 Low back pain; G89.29 Other chronic pain; R63.0 Anorexia; Z79.891 Long term (current) use of opiate analgesic; Z86.79 Personal history of other diseases of the circulatory system; M54.9 Dorsalgia, unspecified; R06.6 Hiccough; Z79.899 Other long term (current) drug therapy
CPT/HCPCS: 36415; 71045; 80048; 80053; 81003; 82607; 82728; 83540; 83605; 83615; 83690; 84443; 84466; 85025; 85044; 85610; 85730; 87040; 96361; 96365; 96366; 96367; 96372; 96375; 96376; 99284; 99285; A9270; G0378; J1650; J2765; Q0167; 81001; 87086

== ENCOUNTER 2019-06-08 09:43 | Emergency (ER) | payer MEDICARE, OTHER ==
[2019-06-08] MEDS ORDERED: oxyCODONE 5 MG TABLET PO STA (10:05)
--- NOTE | 2019-06-08 10:08 | ED Physician Documentation ---
History of Present Illness - Stated complaint Stated Complaint: LT SIDE ABD/BACK PX - Chief complaint Chief Complaint: Back Pain - History obtained from History obtained from: Patient, Family - History of Present Illness Timing: Yesterday Pain level max: 10 Pain level now: 10 - Additonal information Additional information: 68-year-old male, currently undergoing chemotherapy for esophageal cancer states that he tripped and fell yesterday, landing on the curb on the left side of his chest. This was a concrete curb. Now has pain on that side with palpation, taking a deep breath or movement. Took Motrin without relief. Feels similar to when he broke his ribs approximately 30 to 40 years ago. Nothing makes it better Review of Systems Constitutional: denies: Fever, Chills Throat: denies: Sore throat Cardiac: denies: Chest pain / pressure Respiratory: denies: Cough Skin: denies: Rash Musculoskeletal: denies: Neck pain, Back pain Neurologic: denies: Headache PD PAST MEDICAL HISTORY - Past Medical History Cardiovascular: Hypertension, High cholesterol, Arrhythmia Respiratory: None Neuro: None Endocrine/Autoimmune: HyPOthyroidism GI: GERD, Other : None HEENT: Chronic vision loss Psych: Depression Musculoskeletal: Gout Derm: None - Past Surgical History Past Surgical History: Yes General: Colonoscopy, EGD Ortho: Spine surgery, Other HEENT: Cataracts - Present Medications Home Medications: Ambulatory Orders Medication Instructions Recorded Confirmed Levothyroxine Sodium 150 mcg PO DAILY 12/20/18 06/04/19 Pantoprazole [Protonix] 40 mg PO QDAC 12/20/18 06/04/19 buPROPion [Wellbutrin Sr] 150 mg PO BID 12/20/18 06/04/19 LORazepam [Lorazepam] 0.5 mg PO Q6H PRN 01/08/19 06/04/19 Prochlorperazine Maleate 10 mg PO Q6H PRN #30 tablet 01/08/19 06/04/19 Baclofen 10 mg PO Q6H PRN 04/17/19 06/04/19 Colchicine 0.6 mg PO TID PRN #15 tablet 04/21/19 06/04/19 Dronabinol 10 mg PO BID 05/14/19 06/04/19 Metoclopramide [Reglan] 10 mg PO 0700,1100,1600 05/14/19 06/04/19 Metoprolol Succinate [Toprol Xl] 25 mg PO BIDWM 05/14/19 06/04/19 Ondansetron HCl [Zofran] 4 mg PO Q4H PRN 05/14/19 06/04/19 Ferrous Sulfate 325 mg PO DAILY #15 tablet 05/15/19 06/04/19 Oxycodone HCl/Acetaminophen 1 - 2 each PO Q6H PRN #14 tablet 06/08/19 [Percocet 5-325 mg Tablet] - Allergies Allergies/Adverse Reactions: Allergies Allergy/AdvReac Type Severity Reaction Status Date / Time No Known Drug Allergies Allergy Verified 06/08/19 09:51 - Social History Does the pt smoke?: No Smoking Status: Never smoker Does the pt drink ETOH?: No Does the pt have substance abuse?: No - Immunizations Immunizations are current?: Yes - POLST Patient has POLST: No POLST Status: Full Code PD ED PE NORMAL - Vitals Vital signs reviewed: Yes - General General: Alert and oriented X 3, No acute distress - HEENT HEENT: Atraumatic, PERRL, Moist mucous membranes, Other (abrasion L cheek.) - Neck Neck: Supple, no meningeal sign, No bony TTP - Cardiac Cardiac: RRR, Strong equal pulses - Respiratory Respiratory: No respiratory distress, Clear bilaterally, Other (TTP L anterior lower ribs approx 10-12. no crepitus.no ecchymosis. ) - Abdomen Abdomen: Soft, Non tender, Non distended - Back Back: No spinal TTP - Derm Derm: Warm and dry - Extremities Extremities: No edema, No calf tenderness / cord - Neuro Neuro: Alert and oriented X 3 - Psych Psych: Normal mood, Normal affect Results - Vitals Vitals: Vital Signs - 24 hr 06/08/19 06/08/19 09:47 11:19 Temperature 37.3 C 36.5 C Heart Rate 96 84 Respiratory 22 20 Rate Blood Pressure 155/83 H 132/88 H O2 Saturation 100 99 Oxygen O2 Source Room air - EKG (time done) 0956 Rate: Rate (enter#) (77) Rhythm: NSR [place]: Normal Intervals: RBBB Ischemia: Normal ST segments - Rads (name of study) L ribs with cxr Radiology: Prelim report reviewed, EMP read contemporaneously, See rad report (No visualized displaced rib fractures. No pneumothorax. ) PD MEDICAL DECISION MAKING - ED course Complexity details: reviewed results, re-evaluated patient, considered differential, d/w patient ED course: 68 year old male with L rib pain s/p fall. No acute findings on x-ray. Pain well controlled. Will prescribe pain medication for home and follow-up with his doctor. No other acute injuries. Abdomen is soft, nontender nondistended on serial exam. Patient counseled regarding signs and symptoms for which I believe and urgent re-evaluation would be necessary. Patient with good understanding of and agreement to plan and is comfortable going home at this time This document was made in part using voice recognition software. While efforts are made to proofread this document, sound alike and grammatical errors may occur. Departure - Departure Disposition: 01 Home, Self Care Clinical Impression: Contusion of rib on left side Qualifiers: Encounter type: initial encounter Qualified Code(s): S20.212A - Contusion of left front wall of thorax, initial encounter Condition: Good Instructions: ED Contusion Vs Minor Fx Rib Follow-Up: Neftali Duran MD [Primary Care Provider] - Within 1 week Prescriptions: Oxycodone HCl/Acetaminophen [Percocet 5-325 mg Tablet] 1 - 2 each PO Q6H PRN #14 tablet PRN Reason: pain Comments: Use the medications as prescribed. Return if you worsen. There are no fractures visible on your x-ray today, however sometimes nondisplaced fractures are difficult to detect on x-ray. Do not drink alcohol or drive while on narcotic pain medicine. Note that many narcotic pain relievers also contain tylenol/acetaminophen. Please ensure that your total dose of acetaminophen from all sources does not exceed 3 grams (3000mg) per day. You may constipated on this medication, take a stool softener such as "Colace" twice a day while you are on it. Also recommend a [id number] laxative such as senna or MiraLAX any day that you do not have a bowel movement. If you received narcotic pain medication in the emergency department, do not drive or operate machinery for the next 24 hours. Discharge Date/Time: 06/08/19 11:21
--- NOTE | 2019-06-08 11:04 | XRAY Report ---
Reason: fall, L rib pain Procedure Date: 06/08/2019 Accession Number: [id number] / [id number] Procedure: XR - Ribs w/PA Chest LT CPT Code: FULL RESULT: EXAM: LEFT RIB RADIOGRAPHY EXAM DATE: 06/08/2019 10:31 AM. CLINICAL HISTORY: Fall, L rib pain. COMPARISON: CHEST 1 VIEW 05/13/2019 11:31 PM. TECHNIQUE: 1 view of the chest and 2 views of the ribs. FINDINGS: Bones: No displaced rib fracture or bone lesion. Lungs: No focal opacities. No pneumothorax. No pleural effusions. Mediastinum: Stable cardiomediastinal silhouette. Other: Left chest port terminates in the upper SVC, stable position. IMPRESSION: No visualized displaced rib fractures. No pneumothorax. RADIA
[2019-06-08 11:20] VITALS: BP 132/88
== END 2019-06-08 11:21 | disposition home or self-care (01) ==
LOC: ED 09:43
DX: S20.212A Contusion of left front wall of thorax, initial encounter (principal); W01.198A Fall on same level from slipping, tripping and stumbling with subsequent striking against other object, initial encounter; Y93.01 Activity, walking, marching and hiking; I10 Essential (primary) hypertension; C15.9 Malignant neoplasm of esophagus, unspecified; Z79.899 Other long term (current) drug therapy
CPT/HCPCS: 71101; 93005; 99283; 99284; A9270

== ENCOUNTER 2019-07-08 10:13 | Emergency (ER) | payer MEDICARE, OTHER ==
--- NOTE | 2019-07-08 11:25 | XRAY Report ---
Reason: knee pain esoph cancer Procedure Date: 07/08/2019 Accession Number: [id number] / [id number] Procedure: XR - Knee 4 View RT CPT Code: FULL RESULT: EXAM: RIGHT KNEE RADIOGRAPHY EXAM DATE: 07/08/2019 10:40 AM. CLINICAL HISTORY: Knee pain, history of esophageal cancer. COMPARISON: None. TECHNIQUE: 4 views. FINDINGS: Bones: Diffuse osteopenia noted. No fracture or focal bone lesion. Joints: No effusions or joint space loss evident. No significant osteoarthritis. Soft Tissues: Normal. No soft tissue swelling. IMPRESSION: Within normal limits. No fracture, bone lesion or effusion. RADIA
--- NOTE | 2019-07-08 11:47 | ED Physician Documentation ---
PD HPI LOWER EXT INJURY - Stated complaint Stated Complaint: RT KNEE PX - Chief complaint Chief Complaint: Ext Problem - History obtained from History obtained from: Patient, Family - History of Present Illness PD HPI LOW EXT INJURY LOCATION: Right, Knee Type of injury: Other (unknown) Where injury occurred: Home Timing - onset: How many weeks ago (2) Timing - duration: Weeks (2) Timing - details: Abrupt onset, Still present Improved by: Rest Worsened by: Moving, Palpating Associated symptoms: No: Weakness, Numbness, Tingling, Swelling Contributing factors: No: Anticoagulated Similar symptoms before: Has not had sx before Recently seen: Other (recieiving chemo with ketruda for stage IV esophageal cancer.) - Additional information Additional information: 68-year-old male who is undergoing therapy for stage IV esophageal cancer has recently been placed onto Keytruda he is now developed some pain in his right knee. He does not have any swelling he did not have any known injury to the area and he is not having any pain at rest. He has pain anytime he is up ambulating or when he bears weight on the leg the pain is over the medial joint line. He denies any excessive physical activity. Review of Systems Constitutional: denies: Fever Eyes: denies: Decreased vision Ears: denies: Ear pain Nose: denies: Congestion Throat: denies: Sore throat Respiratory: denies: Cough Skin: denies: Rash PD PAST MEDICAL HISTORY - Past Medical History Cardiovascular: Hypertension, High cholesterol, Arrhythmia Respiratory: None Neuro: None Endocrine/Autoimmune: HyPOthyroidism GI: GERD, Other : None HEENT: Chronic vision loss Psych: Depression Musculoskeletal: Gout Derm: None - Past Surgical History Past Surgical History: Yes General: Colonoscopy, EGD Ortho: Spine surgery, Other HEENT: Cataracts - Present Medications Home Medications: Ambulatory Orders Medication Instructions Recorded Confirmed RX: Levothyroxine Sodium 150 mcg PO DAILY 12/20/18 06/25/19 RX: Pantoprazole [Protonix] 40 mg PO QDAC 12/20/18 06/25/19 RX: buPROPion [Wellbutrin Sr] 150 mg PO BID 12/20/18 06/25/19 RX: LORazepam [Lorazepam] 0.5 mg PO Q6H PRN 01/08/19 06/25/19 RX: Prochlorperazine Maleate 10 mg PO Q6H PRN #30 tablet 01/08/19 06/25/19 RX: Baclofen 10 mg PO Q6H PRN 04/17/19 06/25/19 RX: Colchicine 0.6 mg PO TID PRN #15 tablet 04/21/19 06/25/19 RX: Dronabinol 10 mg PO BID 05/14/19 06/25/19 RX: Metoclopramide [Reglan] 10 mg PO 0700,1100,1600 05/14/19 06/25/19 RX: Metoprolol Succinate [Toprol 25 mg PO BIDWM 05/14/19 06/25/19 Xl] RX: Ondansetron HCl [Zofran] 4 mg PO Q4H PRN 05/14/19 06/25/19 RX: Ferrous Sulfate 325 mg PO DAILY #15 tablet 05/15/19 06/25/19 Oxycodone HCl/Acetaminophen 1 - 2 each PO Q6H PRN #14 tablet 06/08/19 06/25/19 [Percocet 5-325 mg Tablet] - Allergies Allergies/Adverse Reactions: Allergies Allergy/AdvReac Type Severity Reaction Status Date / Time No Known Drug Allergies Allergy Verified 07/08/19 10:20 - Social History Does the pt smoke?: No Smoking Status: Never smoker Does the pt drink ETOH?: No Does the pt have substance abuse?: No - Immunizations Immunizations are current?: Yes - POLST Patient has POLST: No POLST Status: Full Code PD ED PE NORMAL - General General: Alert and oriented X 3, No acute distress, Well developed/nourished - HEENT HEENT: Atraumatic, PERRL, EOMI - Neck Neck: Supple, no meningeal sign - Respiratory Respiratory: No respiratory distress - Derm Derm: Normal color, Warm and dry, No rash - Extremities Extremities: No deformity, No edema, Other (Exam of the right knee is without abnormality. There is mild tenderness to palpation of the medial joint line and there is no palpable effusion. The ligaments are stable to testing and the distal n/v appears intact. ) - Neuro Neuro: Alert and oriented X 3, nanofabrication specialist 2-12 intact, No motor deficit, No sensory deficit, Normal speech Eye Opening: Spontaneous Motor: Obeys Commands Verbal: Oriented GCS Score: 15 - Psych Psych: Normal mood, Normal affect Results - Vitals Vitals: Vital Signs - 24 hr 07/08/19 07/08/19 07/08/19 10:18 11:13 13:23 Temperature 36.3 C L 36.8 C Heart Rate 83 88 76 Respiratory 16 17 15 Rate Blood Pressure 148/85 H 127/76 133/82 H O2 Saturation 100 97 98 Oxygen O2 Source Room air - Rads (name of study) R knee Radiology: Prelim report reviewed (Impression: Within normal limits. No fracture, bone lesion or effusion.), EMP read indepedently, See rad report R femur Radiology: Prelim report reviewed (Impression normal right femur radiography.), EMP read indepedently, See rad report PD MEDICAL DECISION MAKING - ED course Complexity details: reviewed results, re-evaluated patient, considered differential, d/w patient, d/w family ED course: 68-year-old male with pain in his right knee with weightbearing appears to have some difficulty when he attempts to walk. He is limping and appears to be in pain. When he is at rest he appears to be doing well and does not appear to be in pain. I did not appreciate any evidence of a joint effusion to the knee or any swelling. My initial concern was for bony metastases and these were not seen in the knee. I consulted the patient's oncologist who recommended that we check the femur as well as there could be referred pain. The femur was again without evidence of bony metastases. The patient was administered Dex Methasone 10 mg orally and he will follow-up with orthopedics.I was unable to determine the exact nature or reason for this patient's pain. I felt that joint infection or excessive inflammation of the joint was unlikely as there did not appear to be a palpable effusion. Departure - Departure Disposition: 01 Home, Self Care Clinical Impression: Knee pain, right Qualifiers: Chronicity: acute Qualified Code(s): M25.561 - Pain in right knee Condition: Stable Instructions: ED Knee Pain [facility] Follow-Up: [facility] [Provider Group] Comments: Today there is no obvious abnormality to the knee joint or the femur on plain film x-rays and no obvious joint effusion or swelling. You have been given a dose of dexamethasone today that may help. Use a walker or crutches to rest the joint and follow up with the orthopedic surgeons for further evaluation. Discharge Date/Time: 07/08/19 13:24
[2019-07-08] MEDS ORDERED: CHERRY SYRUP 10 ML UDC PO ONE (11:49)
[2019-07-08] MEDS ORDERED: DEXAMETHASONE 10 MG/ML VIAL PO STA (11:49)
--- NOTE | 2019-07-08 13:05 | XRAY Report ---
Reason: knee pain Procedure Date: 07/08/2019 Accession Number: [id number] / [id number] Procedure: XR - Femur 2V RT CPT Code: FULL RESULT: EXAM: RIGHT FEMUR RADIOGRAPHY EXAM DATE: 07/08/2019 12:53 PM. CLINICAL HISTORY: Knee pain. Prior report indicates history of esophageal cancer. COMPARISON: KNEE 4 VIEW RT 07/08/2019 10:22 AM. TECHNIQUE: 4 views. FINDINGS: Bones: Normal. No fracture or bone lesion. Joints: The visualized hip and knee joints are normal. No effusions. Soft Tissues: Minimal distal SFA calcification. Bilateral vasectomy clips. IMPRESSION: Normal right femur radiography. RADIA
[2019-07-08 13:24] VITALS: BP 133/82
== END 2019-07-08 13:24 | disposition home or self-care (01) ==
LOC: ED 10:13
DX: M25.561 Pain in right knee (principal); C15.9 Malignant neoplasm of esophagus, unspecified; I10 Essential (primary) hypertension
CPT/HCPCS: 73552; 73564; 99282; 99283; A9270

== ENCOUNTER 2019-07-20 12:20 | Outpatient (CLI) | payer MEDICARE, OTHER ==
--- NOTE | 2019-07-21 09:59 | MRI Report ---
Reason: KNEE PAIN, RIGHT Procedure Date: 07/20/2019 Accession Number: [id number] / [id number] Procedure: MRI - Knee RT W/O CPT Code: FULL RESULT: EXAM: RIGHT KNEE MRI WITHOUT CONTRAST EXAM DATE: 07/20/2019 12:58 PM. CLINICAL HISTORY: KNEE PAIN, RIGHT. COMPARISON: KNEE 4 VIEW RT 07/08/2019 10:22 AM. TECHNIQUE: Multiplanar, multisequence T1-weighted and fluid-sensitive sequences of the knee without contrast. Other: None. FINDINGS: Ligaments: The anterior cruciate, posterior cruciate, medial collateral, and lateral collateral ligaments are intact. Patellofemoral compartment: Small focal high-grade though partial thickness fissure of the retropatellar cartilage slightly to the lateral side of midline. Femoral trochlear cartilage is preserved. No patellofemoral osteoarthritis. Patellofemoral alignment is anatomic. The distal quadriceps and patellar tendons are normal. The medial and lateral patellofemoral retinacula are normal. Medial compartment: The medial meniscus is intact. There is diffuse subchondral marrow edema in the central weightbearing surface of the medial femoral condyle surrounding a small lentiform focus of low signal in the immediate subchondral bone. Findings are consistent with spontaneous osteonecrosis of the knee/insufficiency fracture. There is minimal partial thickness chondromalacia of the medial tibial plateau with minimal subjacent marrow edema. Medial femoral condylar cartilage is preserved. No medial compartment osteoarthritis. Lateral compartment: The lateral meniscus is intact. Lateral compartment cartilage is preserved. 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 No significant lateral compartment osteoarthritis. Soft tissues: There is a small knee effusion. Mild generalized subcutaneous edema is present. There is moderate generalized fatty atrophy of the medial head of the gastrocnemius. IMPRESSION: 1. Spontaneous osteonecrosis of the knee/insufficiency fracture of the medial femoral condyle. Minimal medial tibial plateau chondromalacia with subjacent degenerative marrow signal changes. No medial meniscal tear. 2. The lateral compartment is normal save for incidental note of what is likely sequela of healed osteochondritis dissecans of the lateral femoral condyle. No lateral meniscal tear. 3. Minimal chondromalacia patella. No patellofemoral osteoarthritis. RADIA
== END 2019-07-20 12:21 | disposition home or self-care (01) ==
LOC: DI 12:20
PROVIDERS: ATTEND Orthopaedic Surgery
DX: M84.451A Pathological fracture, right femur, initial encounter for fracture (principal); M87.851 Other osteonecrosis, right femur; M94.261 Chondromalacia, right knee

== ENCOUNTER 2019-08-09 12:19 | Outpatient (CLI) | payer MEDICARE, OTHER ==
[2019-08-09] MEDS ORDERED: IOVERSOL 320 50 ML VIAL ONE (12:35)
[2019-08-09] MEDS ORDERED: IOVERSOL 320 100 ML VIAL IVP ONE ×2 (12:35→13:41)
[2019-08-09] MEDS ORDERED: IOVERSOL 320 50 ML VIAL PO ONE (13:41)
--- NOTE | 2019-08-11 23:20 | CT Report ---
Reason: METASTATIC ESOPHAGEAL CANCER Procedure Date: 08/09/2019 Accession Number: [id number] / [id number] Procedure: CT - Abdomen/Pelvis W CPT Code: FULL RESULT: EXAM: CT ABDOMEN AND PELVIS EXAM DATE: 08/09/2019 01:29 PM. CLINICAL HISTORY: METASTATIC ESOPHAGEAL CANCER. COMPARISONS: ABDOMEN/PELVIS W/ 03/13/2019 9:37 AM CHEST W/ 08/09/2019 1:29 PM. TECHNIQUE: Routine helical CT imaging was performed through the abdomen and pelvis. IV contrast: OPTI 320 90ML. Enteric contrast: Positive. Reconstructions: Coronal and sagittal. In accordance with CT protocol optimization, one or more of the following dose reduction techniques were utilized for this exam: automated exposure control, adjustment of mA and/or KV based on patient size, or use of iterative reconstructive technique. FINDINGS: Lung Bases: Findings are detailed separately. Liver: There are hypodensities within the liver. The larger foci demonstrate attenuation characteristic suggestive of cysts. Gallbladder/Bile Ducts: Unremarkable. Spleen: Normal. Pancreas: Normal. Adrenal Glands: Normal. Kidneys: There is right nephrolithiasis. No evidence of obstructing stone or hydronephrosis. Peritoneal Cavity/Bowel: Esophageal findings are detailed separately. Stomach, small bowel, and colon demonstrate no acute abnormalities. There is moderate volume stool within distal colon. Interval increase in size of mesenteric and retroperitoneal lymph nodes. Index examples include celiac axis IV 0.3 x 1.6 cm image 26 series 3 (3.3 x 1.1 cm on the previous examination), gastroesophageal junction 1.9 x 1.7 cm image 23 (subcentimeter on the previous examination), and aortocaval 3.4 x 1.3 cm image 40 (2.3 x 0.7 cm). No evidence of appendicitis. No intraperitoneal free or free fluid. Pelvic Organs: Normal. The bladder and visualized pelvic organs are within normal limits. Vasculature: No aneurysms or other significant abnormality. Bones: There are left lateral rib fractures. Other: None. IMPRESSION: 1. Interval increase in size of mesenteric and retroperitoneal lymph nodes. This is consistent with progression of metastatic disease. 2. Esophageal and chest findings are detailed separately. 3. No evidence of metastatic disease to the solid abdominal organs. 4. No acute gastrointestinal tract abnormalities are seen. There is distal colon diverticulosis without evidence of diverticulitis. There is moderate volume stool within distal colon. RADIA
--- NOTE | 2019-08-12 07:34 | CT Report ---
Reason: METASTATIC ESOPHAGEAL CANCER Procedure Date: 08/09/2019 Accession Number: [id number] / [id number] Procedure: CT - CHEST W CPT Code: FULL RESULT: EXAM: CT CHEST EXAM DATE: 08/09/2019 01:29 PM. CLINICAL HISTORY: METASTATIC ESOPHAGEAL CANCER. COMPARISONS: CHEST W/ 03/13/2019 9:37 AM. TECHNIQUE: Routine helical CT imaging was performed through the chest. IV contrast: 90 mL Optiray 320. Reconstructions: Coronal and sagittal. In accordance with CT protocol optimization, one or more of the following dose reduction techniques were utilized for this exam: automated exposure control, adjustment of mA and/or KV based on patient size, or use of iterative reconstructive technique. FINDINGS: Lungs/Pleura: No effusions. Patent central airways. Subsegmental atelectasis in the right lower lobe. Solid pulmonary nodule in the left lower lobe posterior segment, series 3, axial image 47, measures 2 mm, unchanged. No enlarging pulmonary nodules identified. Mediastinum: Mediastinal lymphadenopathy. For example, 4R lymph node, series 2, axial image 22, measures 1.5 cm, previously 0.9 cm. For example, 2R lymph node, series 2, axial image alignment, measures 1.1 cm, previously 0.6 cm. No hilar lymphadenopathy. Heart is normal in size. No pericardial effusion. Masslike thickening of the mid/distal esophagus, progressed in the interval, series 2, axial image 18, with the anterior wall measuring 1.4 cm, previously 0.5 cm, increased in size and extent, extending to the level of the left atrium, series 5, coronal image 38. Associated paraesophageal lymphadenopathy. Bones: Multiple old left posterior rib fractures. Multiple old left lateral rib fractures. Visualized Abdomen: Multiple fluid attenuating hepatic cysts. Low attenuating liver lesions measuring less than 1 cm are too small to characterize. Gastrohepatic ligament lymphadenopathy. For example, gastrohepatic ligament lymph node, series 2, axial image 54, measures 1.8 cm, previously 0.6 cm. For example, gastrohepatic ligament lymph node, series 2, axial image 57, measures 1.6 cm, previously 1.4 cm. Other: Enlarged right supraclavicular lymph node, series 2, axial image 4, measures 2.4 cm, previously 1.4 cm. IMPRESSION: 1. Increase in size and extent of the esophageal mass consistent with progressive disease and patients esophageal malignancy. 2. Increase in size of right supraclavicular, mediastinal and upper abdominal lymphadenopathy, consistent with dipesh metastasis and progressive disease. RADIA
== END 2019-08-09 12:20 | disposition home or self-care (01) ==
LOC: LAB 12:19
PROVIDERS: ATTEND Nurse Practitioner Adult Health
DX: C15.8 Malignant neoplasm of overlapping sites of esophagus (principal); C79.9 Secondary malignant neoplasm of unspecified site; R59.1 Generalized enlarged lymph nodes
CPT/HCPCS: 71260; 74177; Q9967

== ENCOUNTER 2019-09-07 11:02 | Emergency (ER) | payer MEDICARE, OTHER ==
--- NOTE | 2019-09-07 12:28 | XRAY Report ---
Reason: cough/ tachycardia Procedure Date: 09/07/2019 Accession Number: [id number] / [id number] Procedure: XR - Chest 2 View X-Ray CPT Code: 86580 FULL RESULT: EXAM: CHEST RADIOGRAPHY EXAM DATE: 09/07/2019 11:56 AM. CLINICAL HISTORY: Cough/ tachycardia. COMPARISON: RIBS W/PA CHEST LT 06/08/2019 10:09 AM. TECHNIQUE: 2 views. FINDINGS: Lungs/Pleura: Unchanged linear basilar opacities likely reflect atelectasis. No new consolidation. No evidence for pleural effusion or pneumothorax. Mediastinum: Stable heart size and mediastinum. Atheromatous plaque of the aortic arch. Other: Stable position of left-sided chest port catheter. IMPRESSION: No radiographic evidence for acute cardiopulmonary process. RADIA
--- NOTE | 2019-09-07 12:45 | ED Physician Documentation ---
PD HPI URI - Stated complaint Stated Complaint: COUGH/CONGESTION - Chief complaint Chief Complaint: Resp - History obtained from History obtained from: Patient, Family () - History of Present Illness Timing - onset: How many days ago (3) Timing duration: Days (3) Timing details: Gradual onset, Still present Associated symptoms: Nasal congestion, Productive cough (mild sputum clear). No: Fever, Hemoptysis Contributing factors: Immunocompromised (has not had chemo for few months, but is taking Immunomodulating therapy for his esophageal cancer, with last 2 weeks ago. Due for new chemo regimen starting this coming Monday.). No: Sick contact, COPD / asthma Improves by: Other (worse cough at night. Has had general weakness worse than baseline.) Worsened by: Activity Similar symptoms before: Has not had sx before Recently seen: Clinic (2 weeks ago in Oncology clinic) Review of Systems Constitutional: reports: Myalgias, Fatigue. denies: Fever, Chills Nose: denies: Rhinorrhea / runny nose, Congestion Throat: denies: Sore throat Cardiac: denies: Chest pain / pressure, Palpitations Respiratory: reports: Dyspnea, Cough. denies: Wheezing GI: reports: Nausea, Other (less appetite and decreased oral intake. Having protein supplements. Has nausea but no vomiting.). denies: Abdominal Pain, Vomiting, Diarrhea : denies: Dysuria Neurologic: reports: Generalized weakness. denies: Near syncope, Altered mental status, Headache PD PAST MEDICAL HISTORY - Past Medical History Cardiovascular: Hypertension, High cholesterol, Arrhythmia Respiratory: None Neuro: None Endocrine/Autoimmune: HyPOthyroidism GI: GERD, Other : None HEENT: Chronic vision loss Psych: Depression Musculoskeletal: Gout Derm: None - Past Surgical History Past Surgical History: Yes General: Colonoscopy, EGD Ortho: Spine surgery, Other HEENT: Cataracts - Present Medications Home Medications: Ambulatory Orders Medication Instructions Recorded Confirmed Levothyroxine Sodium 150 mcg PO DAILY 12/20/18 08/27/19 Pantoprazole [Protonix] 40 mg PO QDAC 12/20/18 08/27/19 buPROPion [Wellbutrin Sr] 150 mg PO BID 12/20/18 08/27/19 LORazepam [Lorazepam] 0.5 mg PO Q6H PRN 01/08/19 08/27/19 Prochlorperazine Maleate 10 mg PO Q6H PRN #30 tablet 01/08/19 08/27/19 Baclofen 10 mg PO Q6H PRN 04/17/19 08/27/19 Colchicine 0.6 mg PO TID PRN #15 tablet 04/21/19 08/27/19 Dronabinol 10 mg PO BID 05/14/19 08/27/19 Metoclopramide [Reglan] 10 mg PO 0700,1100,1600 05/14/19 08/27/19 Metoprolol Succinate [Toprol Xl] 25 mg PO BIDWM 05/14/19 08/27/19 Ondansetron HCl [Zofran] 4 mg PO Q4H PRN 05/14/19 08/27/19 Ferrous Sulfate 325 mg PO DAILY #15 tablet 05/15/19 08/27/19 Oxycodone HCl/Acetaminophen 1 - 2 each PO Q6H PRN #14 tablet 06/08/19 08/27/19 [Percocet 5-325 mg Tablet] Benzonatate [Tessalon Perle] 100 mg PO TID PRN #15 capsule 09/07/19 Doxycycline Hyclate 100 mg PO BID #20 capsule 09/07/19 dexAMETHasone [Decadron] 4 mg PO DAILY #5 tablet 09/07/19 - Allergies Allergies/Adverse Reactions: Allergies Allergy/AdvReac Type Severity Reaction Status Date / Time No Known Drug Allergies Allergy Verified 08/27/19 08:56 - Social History Does the pt smoke?: No Smoking Status: Never smoker Does the pt drink ETOH?: No Does the pt have substance abuse?: No - Immunizations Immunizations are current?: Yes - POLST Patient has POLST: No POLST Status: Full Code PD ED PE NORMAL - Vitals Vital signs reviewed: Yes - General General: Alert and oriented X 3, No acute distress, Well developed/nourished - HEENT HEENT: Pharynx benign (some hoarse voice, though he says some is baseline from his CA. ). No: Moist mucous membranes - Neck Neck: Supple, no meningeal sign, No adenopathy - Cardiac Cardiac: No murmur. No: RRR (tachycardic but regular) - Respiratory Respiratory: Clear bilaterally - Abdomen Abdomen: Normal bowel sounds, Soft, Non tender, Non distended, No organomegaly - Derm Derm: Normal color, Warm and dry - Extremities Extremities: No tenderness to palpate, Normal ROM s pain, No edema, No calf tenderness / cord - Neuro Neuro: Alert and oriented X 3, No motor deficit, Normal speech Results - Vitals Vitals: Vital Signs - 24 hr 09/07/19 09/07/19 09/07/19 11:06 12:15 14:24 Temperature 37 C Heart Rate 130 H 124 H 113 H Respiratory 18 19 14 Rate Blood Pressure 148/69 H 133/76 H O2 Saturation 98 94 96 09/07/19 09/07/19 14:41 15:50 Temperature 36.9 C Heart Rate 112 H 113 H Respiratory 13 14 Rate Blood Pressure 136/74 H 128/55 L O2 Saturation 97 97 Oxygen O2 Source Room air - Labs Labs: Laboratory Tests 09/07/19 09/07/19 09/07/19 12:00 12:00 12:00 WBC 12.7 H RBC 3.09 L Hgb 10.1 L Hct 31.1 L MCV 100.6 H MCH 32.7 H MCHC 32.5 RDW 12.3 Plt Count 326 MPV 10.2 Neut # (Auto) 10.1 H Lymph # (Auto) 1.2 L [place] # (Auto) 1.2 H Eos # (Auto) 0.2 Baso # (Auto) 0.1 Absolute Nucleated RBC 0.00 Nucleated RBC % 0.0 Sodium 137 Potassium 3.0 L Chloride 102 Carbon Dioxide 24 Anion Gap 11.0 BUN 17 Creatinine 1.0 Estimated GFR (MDRD) 74 L Glucose 115 H Lactic Acid 1.3 Calcium 9.8 Magnesium 1.6 L Total Bilirubin 0.8 AST 25 ALT 35 Alkaline Phosphatase 81 Total Protein 7.0 Albumin 3.0 L Globulin 4.0 Albumin/Globulin Ratio 0.8 L Lipase 19 L Influenza A (Rapid) Influenza B (Rapid) Group A Strep Rapid 09/07/19 09/07/19 13:30 13:30 WBC RBC Hgb Hct MCV MCH MCHC RDW Plt Count MPV Neut # (Auto) Lymph # (Auto) [place] # (Auto) Eos # (Auto) Baso # (Auto) Absolute Nucleated RBC Nucleated RBC % Sodium Potassium Chloride Carbon Dioxide Anion Gap BUN Creatinine Estimated GFR (MDRD) Glucose Lactic Acid Calcium Magnesium Total Bilirubin AST ALT Alkaline Phosphatase Total Protein Albumin Globulin Albumin/Globulin Ratio Lipase Influenza A (Rapid) Negative Influenza B (Rapid) Negative Group A Strep Rapid Negative - Rads (name of study) chest xray Radiology: Prelim report reviewed (no infiltrates), See rad report PD MEDICAL DECISION MAKING - ED course Complexity details: reviewed results (Strep test flu test and chest x-ray are clear. It sounds likely to be a bronchitis type symptoms. Commonly this will be viral but given his esophageal cancer and poor immunity, will can treat with back material possible with antibiotics. Likely some inflammation so can give steroids as well. His white count is on par with his usual. Potassium is a little low but similar to prior as well.), re-evaluated patient (He still has general weakness but has had this for a while. He states he feels a little more comfortable with swallowing and breathing after some fluids and steroids and Te ssalon.), considered differential, d/w patient, d/w eap consultant (Talked with on- call oncology who agreed with treating as bronchitis and should still be able to follow-up for chemo on Monday which is 3 days from now.) Departure - Departure Disposition: Home, Self Care Clinical Impression: Bronchitis, Hypokalemia Upper respiratory infection Qualifiers: URI type: unspecified URI Qualified Code(s): J06.9 - Acute upper respiratory infection, unspecified Esophageal cancer Qualifiers: Malignant neoplasm of esophagus location: unspecified location Qualified Code( s): C15.9 - Malignant neoplasm of esophagus, unspecified Condition: Stable Record reviewed to determine appropriate education?: Yes Instructions: ED Upper Resp Infec Abx Tx Follow-Up: Neftali Duran MD [Primary Care Provider] - Sheldon Saab MD [Provider Admit Priv/Credential] - Prescriptions: Benzonatate [Tessalon Perle] 100 mg PO TID PRN #15 capsule PRN Reason: Cough dexAMETHasone [Decadron] 4 mg PO DAILY #5 tablet Doxycycline Hyclate 100 mg PO BID #20 capsule Comments: I talked with the on-call oncologist who agreed with treating this as a bronchitis with antibiotic and anti-inflammatory (doxycycline and Decadron) and something for the cough suppression/irritation (Tessalon). He said to follow-up in clinic on Monday as planned as likely should be able to initiate the chemotherapy. Stay well-hydrated with frequent fluids. Return if worsening. Discharge Date/Time: 09/07/19 15:51
[2019-09-07] MEDS ORDERED: cefTRIAXone 1 GM VIAL IVP STA (13:17)
[2019-09-07] MEDS ORDERED: DEXAMETHASONE 10 MG/ML VIAL IVP STA (13:17)
[2019-09-07] MEDS ORDERED: SODIUM CHLORIDE 0.9% 1,000 ML IV ONE ×2 (13:17)
[2019-09-07 13:30] LABS: BASOPHILS # (AUTO) 0.1 10^3/uL (0.0-0.1); BASOPHILS % (AUTO) 0.5 %; EOSINOPHILS # (AUTO) 0.2 10^3/uL (0.0-0.7); EOSINOPHILS % (AUTO) 1.4 %; HGB - HEMOGLOBIN 10.1 g/dL (14.0-18.0); LYMPHOCYTES # (AUTO) 1.2 10^3/uL (1.5-3.5); LYMPHOCYTES % (AUTO) 9.3 %; MEAN CORPUSCULAR HEMOGLOBIN 32.7 pg (27.0-31.0); MEAN CORPUSCULAR HGB CONC 32.5 g/dL (32.0-36.0); MEAN CORPUSCULAR VOLUME 100.6 fL (80.0-94.0); MEAN PLATELET VOLUME 10.2 fL (7.4-11.4); MONOCYTES # (AUTO) 1.2 10^3/uL (0.0-1.0); NEUTROPHILS # (AUTO) 10.1 10^3/uL (1.5-6.6); NEUTROPHILS % (AUTO) 78.9 %; PLT - PLATELET COUNT 326 10^3/uL (130-450); RED BLOOD COUNT 3.09 10^6/uL (4.70-6.10); RED CELL DISTRIBUTION WIDTH 12.3 % (12.0-15.0); WHITE BLOOD COUNT 12.7 x10^3/uL (4.8-10.8)
[2019-09-07 13:35] LABS: ALBUMIN/GLOBULIN RATIO 0.8 (1.0-2.2); BILIRUBIN,TOTAL 0.8 mg/dL (0.2-1.0); CALCIUM 9.8 mg/dL (8.5-10.3); MAGNESIUM 1.6 mg/dL (1.7-2.8)
[2019-09-07] MEDS ORDERED: POTASSIUM CHLOR 10 MEQ/100 ML 10 MEQ/100 ML BAG IV ONE (13:59)
[2019-09-07] MEDS ORDERED: DOXYCYCLINE 100 MG TABLET PO STA (15:23)
[2019-09-07 15:51] VITALS: BP 128/55
== END 2019-09-07 15:51 | disposition home or self-care (01) ==
LOC: ED 11:02
DX: J40 Bronchitis, not specified as acute or chronic (principal); J06.9 Acute upper respiratory infection, unspecified; E87.6 Hypokalemia; C15.9 Malignant neoplasm of esophagus, unspecified; D89.9 Disorder involving the immune mechanism, unspecified; I10 Essential (primary) hypertension
CPT/HCPCS: 36415; 71046; 80053; 83605; 83690; 83735; 85025; 87070; 87275; 87276; 87430; 96361; 96365; 96375; 99284; A9270

== ENCOUNTER 2019-12-25 09:32 | Outpatient (CLI) | payer MEDICARE ==
--- NOTE | 2019-12-25 17:18 | CONSULTATION NOTE ---
Palliative Care Consultation - Referral Referring Provider: Dr. Viviane Saab Time of Visit: [id number] Referral setting: [facility] [place] Reason: Met Esophageal CA/Anorexia/Goals of Care - Information Sources Records reviewed: Previous records reviewed History/Review of Systems obtained from: Patient, Family ( Lizy with patient) Exam limitations: No limitations - History of Present Illness Brief History of Present Illness: This is a 69-year-old gentleman who presented in August 2018 with dysphagia, after lumbar surgery. He underwent a EGD on 12/20/2018 that showed a tumor, with biopsies positive for invasive moderately differentiated squamous cell carcinoma. His CT scan showed multiple enlarged supraclavicular mediastinal/upper abdominal lymph nodes and initiated FOLFOX-6 in December 2018. Patient had significant toxicities, and in February/2019 showed stable or improved lymphadenopathy, unfortunately had lost 30 pounds by then. He was then initiated on Pembrolizumab, unfortunately progressed on this as well, and most recently found to have progressed onto cis-[place]/Irinotecan, and on his most recent CT scan. Currently he has been initiated on weekly Taxol and tolerating at this time, he does understand the expectation is about a 20% chance of response. He has had high symptom burden with anorexia, weight loss, diarrhea, and severe fatigue. His mobility actually has been mostly impacted by osteonecrosis in his right knee, though this is improving with strengthening and pain is stable at this time. At this point in time it does not appear these two are connected. I am meeting with patient and for the first time, they do recognize the seriousness of his illness, and are concerned about his ongoing decline and lack of further treatment options. They did meet with oncology at [facility] yesterday, they are going to look at further possible targeted therapies/ clinical trials, though recognize this is most likely a long shot and do not expect to hear for several weeks yet. Medical/Surgical History - Past Medical History Cardiovascular: reports: Hypertension, High cholesterol, PA, Arrhythmia Respiratory: reports: None Neuro: Peripheral neuropathy (CIPN) Endocrine/Autoimmune: reports: HyPOthyroidism GI: reports: GERD, Other (esophageal CA) : reports: None HEENT: reports: Chronic vision loss Psych: reports: Depression Musculoskeletal: reports: Gout, Other (osteonecrosis of right knee) Derm: reports: None MRSA Hx?: No - Past Surgical History General: reports: Colonoscopy, EGD Ortho: reports: Spine surgery HEENT: reports: Cataracts - Substance History Use: Uses substance without health or social issues: Alcohol Social History - Living Situation Living arrangement: At home Living Situation: With spouse/s.o. Support System: Patient and his Lizy have been together for 40 years, they met through a mutual friend. She described herself as a take charge kind of gal, he reports he himself is someone who compartmentalizes, particularly related to his current condition. 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 They built a house in [place], but then relocated here 2 years ago with the focus of building a house as well. They do not have any children, he has a sister in [place] who is been supportive. They see themselves as the "two of us" so it has been hard contemplating his decline. She still has friends from [place], but they do not have any community or support here on [facility]. She is a quilter, and enjoys sewing. They have found it frustrating to navigate the healthcare system, and are not affiliated with any evangelical or religion. Family History - Family History Family History: Mother: , Father: , Sister: Alive and Well Medications/Allergies - Medications Home Medications: Ambulatory Orders Medication Instructions Recorded Confirmed Levothyroxine Sodium 150 mcg PO DAILY 12/20/18 12/25/19 Pantoprazole [Protonix] 40 mg PO QDAC 12/20/18 12/25/19 buPROPion [Wellbutrin Sr] 150 mg PO BID 12/20/18 12/25/19 Prochlorperazine Maleate 10 mg PO Q6H PRN #30 tablet 01/08/19 12/25/19 Baclofen 10 mg PO BID MDD trying taper 04/17/19 12/25/19 Metoprolol Succinate [Toprol Xl] 25 mg PO DAILY 05/14/19 12/25/19 Ondansetron HCl [Zofran] 4 mg PO Q4H PRN 05/14/19 12/25/19 Ferrous Sulfate 325 mg PO DAILY #15 tablet MDD on 05/15/19 12/25/19 hold not taking Oxycodone HCl/Acetaminophen 1 - 2 each PO Q6H PRN #14 tablet 06/08/19 12/25/19 [Percocet 5-325 mg Tablet] MDD 3 tabs Diphenoxylate/Atropine [Lomotil] 2.5 mg PO DAILY 09/12/19 12/25/19 Megestrol Acetate [Megace Es] 800 mg PO DAILY 11/29/19 12/25/19 Colchicine 0.6 mg PO BID 12/25/19 12/25/19 Loperamide [Imodium] 2 mg PO Q4HR PRN 12/25/19 12/25/19 - Allergies Allergies/Adverse Reactions: Allergies Allergy/AdvReac Type Severity Reaction Status Date / Time No Known Drug Allergies Allergy Verified 12/03/19 09:39 Review of Systems - Constitutional Constitutional: reports: Fatigue (improving), Poor appetite, Weight loss (162.5 stable for a few weeks). denies: Fever, Chills - Eyes Eyes: reports: Vision loss - Ears, Nose & Throat Ears, Nose & Throat: reports: Dry mouth. denies: Mouth lesions - Cardiovascular Cardiovascular: reports: Exertional dyspnea, Decr. exercise tolerance. denies: Chest pain - Respiratory Respiratory: reports: SOB with exertion. denies: Cough, SOB at rest - Gastrointestinal Gastrointestinal: reports: Diarrhea (intermittent improved), Nausea, Poor appetite, Early satiety, Other (taste changes) - Musculoskeletal Musculoskeletal: reports: Back pain, Stiffness, Limited range of motion (right knee), Muscle weakness, Gout, Joint pain (right knee), Assistive devices (cane) - Integumentary Integumentary: reports: Dryness - Neurological Neurological: reports: General weakness, Abnormal gait - Psychiatric Psychiatric: reports: Depression, Anxiety - Endocrine Endocrine: reports: Intolerance to cold - Hematologic/Lymphatic Hematologic/Lymphatic: reports: Anemia. denies: Recurrent infections - All Other Systems All Other Systems: reports: Reviewed and negative Physical Exam - Vital Signs Temperature: 36.6 C Pulse Rate: 92 Respiratory Rate: 18 Blood Pressure: 135/71 - Physical Exam General Appearance: positive: Alert Eyes Bilateral: positive: Normal inspection ENT: negative: Oral lesions Neck: positive: No JVD, Trachea midline Cardiovascular: positive: Regular rate & rhythm Respiratory: positive: No respiratory distress, Diminished in bases. negative: Wheezes, Rales, Rhonchi Abdomen: positive: Non-tender, Soft, Nml bowel sounds Skin: positive: Pallor, Dryness Extremities: positive: No pedal edema Neurologic/Psychiatric: positive: Oriented x3, Mood/affect nml, Weakness, Flat affect Palliative Care - POLST Patient has POLST: Yes POLST Status: DNR, Selective Treatment (completed at today's visit; AB accetable; Med Nutritional support no) Pain: Pain unchanged, Location (right knee; uses oxycodone 5 mg up to 2 x a day with relief; quad exercises helped with pain) Tiredness/Fatigue: Moderate (4-6) Drowsiness/Sedation: Mild (1-3) Nausea: Mild (1-3) Anorexia: Moderate (4-6), Weight loss Dyspnea: None Depression: Mild (1-3) Anxiety: Mild (1-3) Feelings of wellbeing/Perceived Quality of Life: Fair, Acceptable, Improved Sleep: Sleeps well Constipation: No Performance Status: Patient does perceive himself is quite deconditioned, though has been despite the weather, trying to initiate progressive ambulation particularly in the house. He is to start outpatient physical therapy this Monday. He is able to manage his own ADLs, though fatigues quite quickly. He has increased pain with standing and weightbearing thus limiting his activity as well. He does feel like he is improving from his previous level of functioning, as he is gotten quite weakened and fatigued previous treatments. - Palliative Care Discussion: Counseling provided regarding goals of care. Patient is willing to continue with treatment for extended quantity and quality of care, though does recognize that he is on now fourth line treatment, with less chance of response. He reports he mateus by putting it in "a box", and pushes it out of the way. We did discuss in the context of this though it is important to explore what is most important at this point in time. is concerned that patient's wishes, particular around tube feedings, and end-of-life are documented in the context of complex family dynamics. By [employer] state law, she would be the D POA, but did recommend completing paperwork with identification of a second person. Discussion regarding patient's wishes and goals, did complete POLST with explanation of DNA R, patient currently would accept further treatment, reviewed treatment of reversible conditions, hospitalization currently okay, does not want to be dependent or consider feeding tube though we did discuss weighing benefits and burdens in the future regarding this depending on the situation. Selected DNA R/selective treatments/except antibiotics, and no medical nutrition. This was signed, counseling provided regarding posting on the fridge, as well this using it to negotiate healthcare system. Patient does want to have a at home, when that time comes. Encouraged to consider short-term goals, particularly as patient currently feeling better. This would include finishing up with her house, the finish work. They do not have any travel plans they are interested in, and do feel like they have most of their end-of-life planning components done. would like further living will document, to further support her in the context of decision making. She will download the one [facility] [employer]. 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 Currently on fourth line therapy, with moderate to high symptom burden. Palliative care to provide support regarding symptom management, anticipatory guidance, and coordination of care. Recommendations/Counseling Done: 1. Anorexia. Patient has trialed multiple different approaches, did not see dronabinol is helpful. Has intermittently used Megace, has restarted and feeling like more helpful this time. Counseling provided regarding use of Megace, need to consistently take daily, not as needed. Recommended trial of 7 to 10 days before deciding if effective not, and if improved, can continue to negotiate weighing benefits and burdens of using it moving forward depending on intake. Counseling also provided regarding need for increased caloric intake, recommended increased intake of breeze from 2 to at least 3, frequent small meals, patient does have early satiety and discomfort. 2. Dysphagia. Patient does find his sensation and difficulty swallowing, is a barrier for wanting to eat. He also has intermittent abdominal discomfort with eating. Counseling provided regarding strategies and things that might improve this overall, will monitor and see if needs to meet with dietitian again. 3. Acute on chronic right knee pain. Patient is doing progressive ambulation, and encouraged to continue with this, both for endurance, as well as management of depression and wellbeing. Patient is to start with physical therapy this Monday. 4. Depression. Counseling provided regarding normalizing grief and loss process, explored patient's current and past coping mechanisms, has been on his Wellbutrin long-term. Currently does not report any persistent depressive feelings or interfering with his current functioning, will leave on current regimen. 5. Fatigue. This is multifactorial in origin, including anemia, decreased intake, tumor burden, and side effects of treatment. Patient has initiated progressive ambulation, reviewed nutrition and hydration status today, instructed oral rehydration more beneficial than IV, but to continue to monitor if need to add to his chemo regimen ongoing. 6. Advanced care planning. POLST completed after goals of care conversation, encouraged and patient to consider secondary D POA and complete paperwork. Patient's goals are to focus on quality, is hoping for increased quantity and finding treatment currently tolerable. Did discuss goals for end-of-life, which would be to be at home, would benefit from hospice support at that point. 7. Hypokalemia. Patient's current potassium is 3.5, patient has not been taking any potassium supplement. Dislikes oral liquid, if patient needs to be restarted, the small K chlor 10 mEq tablets are coated and easier to swallow can consider this, or IV supplementation. Patient has had intermittent diarrhea, reviewed and encouraged use of Imodium as this is a primary source of loss of potassium. Time Spent: 75 minutes with greater than 50% of this done in counseling regarding setting of rapport with palliative care, anticipatory guidance, completion of the POLST and initiation advanced care planning, follow-up with pain and symptom management.
== END 2019-12-25 09:33 | disposition home or self-care (01) ==
LOC: PC 09:32
PROVIDERS: ATTEND Nurse Practitioner Adult Health
DX: Z51.5 Encounter for palliative care (principal); R63.4 Abnormal weight loss; R63.0 Anorexia; R13.10 Dysphagia, unspecified; M87.9 Osteonecrosis, unspecified; F32.9 Major depressive disorder, single episode, unspecified; R53.83 Other fatigue; K52.1 Toxic gastroenteritis and colitis; G62.0 Drug-induced polyneuropathy; T45.1X5A Adverse effect of antineoplastic and immunosuppressive drugs, initial encounter; E87.6 Hypokalemia; C15.9 Malignant neoplasm of esophagus, unspecified; Z79.899 Other long term (current) drug therapy; Z79.891 Long term (current) use of opiate analgesic; Z66 Do not resuscitate
CPT/HCPCS: 99205

== ENCOUNTER 2020-01-14 11:26 | Outpatient (CLI) | payer MEDICARE ==
--- NOTE | 2020-01-16 08:48 | CONSULTATION NOTE ---
Palliative Care Follow Up - Referral Referring Provider: Dr. Viviane Saab Time of Visit: [id number] [place] [facility] [place] Reason: Stage IV Esophageal CA - Information Sources Records reviewed: RN notes reviewed, Previous records reviewed History/Review of Systems obtained from: Patient, Family ( Lizy present) Exam limitations: No limitations - History of Present Illness Update Brief HPI Update: This is a 69-year-old gentleman please see HPI from 12/25/2019. Patient has invasive moderately differentiated squamous cell carcinoma, originally diagnosed in November 2018. He has had treatment with FOLFOX 6, with significant toxicities, treated with pembrolizumab,, progressed on to cis-[place]/Irinotec an, with further progression as well and now currently on weekly Taxol since 11/09/2019. He is tolerating this well. Patient's appetite is improved, with the consisten use of the Megace. He is eating and drinking without any difficulty, as a result is stronger, and activity tolerance is improved, he is working with physical therapy. His pain in his right knee has resolved, is working currently now on building endurance and further strength. He is very pleased overall. He presents only with some intermittent fatigue. He is having no trouble with swallowing, is even able to eat meat now is able to maintain his weight at 162. He does understand the seriousness of his illness, reports he put it in a little box emotionally, but otherwise is very pleased with his current respite with things more stable now. Patient's past medical history includes hypertension, high cholesterol, history of SD, arrhythmia, chemotherapy-induced peripheral neuropathy, hypothyroidism, GERD, gout, spine surgery, cataracts. Social History - Living Situation Living arrangement: At home Living Situation: With spouse/s.o. 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 They do not have any children but he has a sister in [place] is been supportive. They have been him supportive community here on [facility], she does have friends in [place]. Medications/Allergies - Medications Home Medications: Ambulatory Orders Medication Instructions Recorded Confirmed Levothyroxine Sodium 100 mcg PO DAILY 12/20/18 01/14/20 Pantoprazole [Protonix] 40 mg PO QDAC 12/20/18 01/14/20 buPROPion [Wellbutrin Sr] 150 mg PO BID 12/20/18 01/14/20 Prochlorperazine Maleate 10 mg PO Q6H PRN #30 tablet 01/08/19 01/14/20 Baclofen 5 mg PO BID MDD tapering to 0 04/17/19 01/14/20 Metoprolol Succinate [Toprol Xl] 25 mg PO DAILY 05/14/19 01/14/20 Ondansetron HCl [Zofran] 4 mg PO Q4H PRN 05/14/19 01/14/20 Diphenoxylate/Atropine [Lomotil] 2.5 mg PO DAILY 09/12/19 01/14/20 Megestrol Acetate [Megace Es] 800 mg PO DAILY 11/29/19 01/14/20 Colchicine 0.6 mg PO BID 12/25/19 01/14/20 Loperamide [Imodium] 2 mg PO Q4HR PRN 12/25/19 01/14/20 LORazepam [Lorazepam] 0.5 mg PO Q6H PRN 12/30/19 01/14/20 - Allergies Allergies/Adverse Reactions: Allergies Allergy/AdvReac Type Severity Reaction Status Date / Time No Known Drug Allergies Allergy Verified 12/03/19 09:39 Review of Systems - Constitutional Constitutional: reports: Fatigue (improved), Weight stable (162). denies: Fever, Chills - Ears, Nose & Throat Ears, Nose & Throat: reports: Other (denies any difficulty with swallowing; has improved overall) - Cardiovascular Cardiovascular: reports: Decr. exercise tolerance (improved). denies: Lightheadedness - Respiratory Respiratory: denies: Cough, SOB at rest - Gastrointestinal Gastrointestinal: reports: Good appetite. denies: Constipation, Diarrhea, Nausea - Musculoskeletal Musculoskeletal: reports: Muscle weakness. denies: Joint pain (right knee pain resolved) - Integumentary Integumentary: reports: Dryness - Neurological Neurological: reports: General weakness - Psychiatric Psychiatric: denies: Depression, Anxiety - Endocrine Endocrine: reports: Hypothyroidism (adjusted by PCP to 100 mcg) - Hematologic/Lymphatic Hematologic/Lymphatic: reports: Anemia (8.7). denies: Recurrent infections - All Other Systems All Other Systems: reports: Reviewed and negative Physical Exam - Physical Exam General Appearance: positive: No acute distress, Alert Eyes Bilateral: positive: Normal inspection ENT: positive: No signs of dehydration Neck: positive: No JVD, Trachea midline. negative: Lymphadenopathy (R), Lymphadenopathy (L) Cardiovascular: positive: Regular rate & rhythm Respiratory: positive: No respiratory distress, Breath sounds nml, Other (diminished RLL) Abdomen: positive: Non-tender, Soft Skin: positive: Pallor, Dryness Extremities: positive: No pedal edema Neurologic/Psychiatric: positive: Oriented x3, Mood/affect nml, Flat affect Palliative Care - POLST Patient has POLST: Yes POLST Status: DNR, Selective Treatment Pain: No pain, Pain improved Tiredness/Fatigue: Mild (1-3) Drowsiness/Sedation: Mild (1-3), Comment (drifts off easily if sitting/resting) Nausea: None Anorexia: None Dyspnea: None Depression: None Anxiety: None Feelings of wellbeing/Perceived Quality of Life: Excellent, Acceptable, Improved Sleep: Sleeps well Constipation: No Performance Status: Patient is working with physical therapy twice a week, he is improving in his activity tolerance, his pain is resolved. He is quite pleased with his progress. He is able to manage his own ADLs, is starting to cook again, and is starting to be able to work on his house which is been his goal - Palliative Care Discussion: We did complete his POLST at appointment last time as DNA R and selective treatment. very much does not want any issues around end-of-life planning. She feels there may be some contention with further family, they were going to further explore a more robust directive, but have not finished the paperwork regarding this. We did discuss in the context though of the bigger picture, patient does have the POLST, which does outline the more important 1 which is the resuscitation status, as well as DNI. But is still feeling vulnerable, patient is willing to provide support, though we did discuss in the context of his illness, it is hard to orchestrate or document every decision that may be coming their way. He would like to have a at home. They are doing better, short-term goals have to do with finishing the house, they have been out to lunch. Are trying to find ways to support her as well. They feel currently things are going fairly well. They are awaiting any further information from [facility] regarding future trials. 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 He is currently on fourth line therapy, with improved symptom burden. Palliative care to provide support regarding symptom management, anticipatory guidance, and coordination of care. Recommendations/Counseling Done: 1. Anorexia. Patient did commit to using the Megace, was taking daily and seems to have improved his appetite dramatically. He has been eating and drinking, has maintained his weight this last few weeks. Patient has not had any trouble with swallowing, no further diarrhea, and is participating in meal prep. Counseling provided regarding can taper off Megace if continuing to do well. 2. Dysphagia. Patient sensation difficulty swallowing, has resolved. He does have intermittently early satiety but overall is improved. 3. Acute on chronic right knee pain pain is currently resolved, he is working with PT, now working on strengthening and endurance. 4. Fatigue this is multifactorial in origin, including anemia, now with improved intake, and tolerating side effects of treatment is improving. Patient without further hiccups, they have tapered back to baclofen, encouraged to continue taper and discontinue watching for recurrent hiccups. 5. Advanced care planning. POLST has been completed, he still would like to finish up another DPOAE and further directive. Discussed with patient doing well currently, will follow up in a couple weeks if have further questions, otherwise will pace visits until more symptomatic again. They do have information available contact palliative care as needed. Time Spent: 45 minutes with greater than 50% done in counseling regarding symptom management, coordination of care, and anticipatory guidance.
== END 2020-01-14 11:27 | disposition home or self-care (01) ==
LOC: PC 11:26
PROVIDERS: ATTEND Nurse Practitioner Adult Health
DX: Z51.5 Encounter for palliative care (principal); R63.0 Anorexia; R13.10 Dysphagia, unspecified; D64.9 Anemia, unspecified; R53.83 Other fatigue; R53.1 Weakness; M25.561 Pain in right knee; C15.9 Malignant neoplasm of esophagus, unspecified; Z79.899 Other long term (current) drug therapy; Z66 Do not resuscitate
CPT/HCPCS: 99215